=== PATIENT | female | born 1970 | race Caucasian/White ===

== ENCOUNTER 2016-08-29 18:46 | Emergency (ER) | payer MEDICARE, MEDICAID ==
[~2016-08-29] VITALS: Ht 152.4 cm; Wt 102.1 kg
[~2016-08-29 18:46] MED LIST: CARB200T PO; CARI350T PO; CLON1TAB PO; GABA300C PO; MULT-24 PO
[2016-08-29] MEDS ORDERED: FLUO20CA36 PO (19:00)
[2016-08-29] MEDS ORDERED: IV NORMAL SALINE 1000 ML BAG IV ONE ×2 (20:00→22:30)
[2016-08-29] MEDS ORDERED: HYDROMORPHONE 1 MG/1 ML DISP.SYRIN IV ONE ×2 (20:00→22:30)
[2016-08-29] MEDS ORDERED: ONDANSETRON 4 MG/2 ML VIAL IV ONE (20:00)
[2016-08-29] MEDS ORDERED: DIATR MEGLU/DIATRIZOATE SODIUM 120 ML BOTTLE PO ONE (20:00)
[2016-08-29] MEDS ORDERED: HYDROMORPHONE 1 MG/1 ML DISP.SYRIN ONE ×2 (20:19→22:37)
[2016-08-29] MEDS ORDERED: ONDANSETRON 4 MG/2 ML VIAL ONE (20:19)
[2016-08-29] MEDS ORDERED: DIATR MEGLU/DIATRIZOATE SODIUM 120 ML BOTTLE ONE (20:19)
[2016-08-29 20:22] LABS: *BILIRUBIN,URIN NEGATIVE (NEGATIVE); *BLOOD, URINE Trace-intact (NEGATIVE); *CLARITY,URINE CLEAR (CLEAR); *COLOR,URINE YELLOW (YELLOW); *KETONES,URINE NEGATIVE (NEGATIVE); *PROTEIN,URINE NEGATIVE (NEGATIVE); *UROBILINOGEN,URINE 0.2 E.U./dl (NORMAL); LEUKOCYTE ESTERASE ,URINE NEGATIVE (NEGATIVE); NITRITE, URINE NEGATIVE (NEGATIVE); PH,URINE 6.5 (5.0-8.0); UGLUCOSE NEGATIVE (NEGATIVE)
[2016-08-29 20:23] LABS: BASOPHILS % (AUTO) 0.4 % (0.0-2.0); EOSINOPHILS # (AUTO) 0.1 K/uL (0.0-0.7); EOSINOPHILS % (AUTO) 2.3 % (0.0-7.0); HEMATOCRIT 34.7 % (37.0-47.0); HEMOGLOBIN 11.3 g/dL (12.0-16.0); LYMPHOCYTES # (AUTO) 1.4 K/uL (0.8-4.8); MEAN CORPUSCULAR HEMOGLOBIN 26.2 uug (27.0-31.0); MEAN CORPUSCULAR HGB CONC 33 g/dL (32.0-37.0); MEAN CORPUSCULAR VOLUME 80.6 fL (81.0-99.0); MONOCYTES # (AUTO) 0.5 K/uL (0.1-1.30); MONOCYTES % (AUTO) 7.8 % (0.0-11.0); NEUTROPHILS # (AUTO) 3.8 K/uL (1.8-8.9); NEUTROPHILS % (AUTO) 65.5 % (38.5-71.5); PLATELET COUNT (AUTO) 261 K/uL (150-450); RED CELL DISTRIBUTION WIDTH 21.5 % (11.5-14.5); WHITE BLOOD COUNT (AUTO) 5.8 K/uL (4.0-11.2)
[2016-08-29 20:25] LABS: *URINE HCG, QUAL NEGATIVE (NEGATIVE)
[2016-08-29 20:31] LABS: MUCUS,URINE MODERATE /LPF (0-FEW); SQUAMOUS EPITHELIAL CELL,UR MODERATE /HPF (NONE SEEN); WBC,URINE 0-3 /HPF (0-3)
[2016-08-29 20:39] LABS: CALCIUM 8.9 mg/dL (8.5-10.1); CARBON DIOXIDE 31 mmol/L (21-32); CHLORIDE 93 mmol/L (98-107); CREATININE 0.9 mg/dL (0.6-1.3); GFR 67 mL/min (>60); GLUCOSE 85 mg/dL (74-106); POTASSIUM 3.4 mmol/L (3.5-5.1); SODIUM SERUM 130 mmol/L (136-145); UREA NITROGEN, BLOOD 15 mg/dL (7-18)
[2016-08-29 20:46] LABS: AMMONIA < 10 umol/L (11-32)
[2016-08-29 20:47] LABS: ACANTHOCYTES FEW; ANISOCYTOSIS 2+
[2016-08-29 20:49] LABS: ALANINE AMINOTRANSFERASE 13 U/L (14-59); ALBUMIN 3.4 g/dL (3.4-5.0); ALKALINE PHOSPHATASE 77 U/L (50-136); ASPARTATE AMINOTRANSFERASE 16 U/L (15-37); BILIRUBIN,DIRECT 0.1 mg/dL (0.0-0.2); BILIRUBIN,TOTAL 0.3 mg/dL (0.2-1.0); LIPASE 59 U/L (73-393); TOTAL PROTEIN, SERUM 7.2 g/dL (6.4-8.2)
--- NOTE | 2016-08-29 23:44 | NUR ---
Patient discharged to home in stable conditon. Written and verbal after care instructions given. Patient verbalizes understanding of instructions.
== END 2016-08-29 23:47 | disposition home or self-care (01) ==
LOC: ER 18:46
DX: R10.9 Unspecified abdominal pain (principal); M54.30 Sciatica, unspecified side; R00.2 Palpitations; R42 Dizziness and giddiness; R51 Headache; E87.1 Hypo-osmolality and hyponatremia; E66.9 Obesity, unspecified; J44.9 Chronic obstructive pulmonary disease, unspecified; K21.9 Gastro-esophageal reflux disease without esophagitis; F31.9 Bipolar disorder, unspecified; J45.909 Unspecified asthma, uncomplicated; F17.200 Nicotine dependence, unspecified, uncomplicated; Z90.49 Acquired absence of other specified parts of digestive tract; Z91.018 Allergy to other foods
CPT/HCPCS: 36415; 70450; 71010; 74176; 80048; 80076; 81001; 82140; 83690; 84484; 84703; 85025; 85730; 87086; 87210; 93005; 96361; 96374; 96375; 96376; 99285; A4663; J1170 ×2; J2405; J7030 ×2; Q9963; 70030-TC

== ENCOUNTER 2016-09-24 15:12 | Emergency (ER) | payer MEDICARE, MEDICAID ==
[~2016-09-24] VITALS: Ht 167.6 cm; Wt 114.3 kg
[~2016-09-24 15:12] MED LIST changes: +FLUO20CA36 PO
[2016-09-24] MEDS ORDERED: ASPI81TA31 PO (15:41)
[2016-09-24] MEDS ORDERED: CYAN10009 PO (15:41)
[2016-09-24] MEDS ORDERED: HYDR25TA4 PO (15:41)
[2016-09-24] MEDS ORDERED: FERR325C PO (15:41)
[2016-09-24] MEDS ORDERED: PROMETHAZINE HCL 25 MG/1 ML VIAL IM ONE (16:15)
[2016-09-24] MEDS ORDERED: HYDROMORPHONE 1 MG/1 ML DISP.SYRIN IM ONE (16:15)
[2016-09-24] MEDS ORDERED: HYDROMORPHONE 2 MG/1 ML DISP.SYRIN ONE (16:32)
[2016-09-24] MEDS ORDERED: PROMETHAZINE HCL 25 MG/1 ML VIAL ONE (16:32)
[2016-09-24 16:36] LABS: BASOPHILS % (AUTO) 0.7 % (0.0-2.0); EOSINOPHILS # (AUTO) 0.2 K/uL (0.0-0.7); EOSINOPHILS % (AUTO) 2.8 % (0.0-7.0); HEMATOCRIT 34.3 % (31.2-41.9); HEMOGLOBIN 11.7 g/dL (10.9-14.3); LYMPHOCYTES # (AUTO) 1.2 K/uL (20.0-40.0); LYMPHOCYTES % (AUTO) 22.1 % (20.5-51.5); MEAN CORPUSCULAR HEMOGLOBIN 27.9 uug (24.7-32.8); MEAN CORPUSCULAR HGB CONC 34 g/dL (32.3-35.6); MEAN CORPUSCULAR VOLUME 82.1 fL (75.5-95.3); MONOCYTES # (AUTO) 0.5 K/uL (2.0-10.0); MONOCYTES % (AUTO) 9.6 % (0.0-11.0); NEUTROPHILS # (AUTO) 3.5 K/uL (1.8-8.9); NEUTROPHILS % (AUTO) 64.8 % (38.5-71.5); PLATELET COUNT (AUTO) 243 K/uL (179-408); RED BLOOD CELL COUNT(AUTO) 4.18 MIL/uL (3.63-4.92); RED CELL DISTRIBUTION WIDTH 19.6 % (12.3-17.7); WHITE BLOOD COUNT (AUTO) 5.4 K/uL (3.8-11.8)
[2016-09-24 16:37] LABS: CALCIUM 8.5 mg/dL (8.5-10.1); CREATININE 0.8 mg/dL (0.6-1.3)
--- NOTE | 2016-09-24 16:58 | NUR ---
Patient discharged to home in stable conditon. Written and verbal after care instructions given. Patient verbalizes understanding of instructions.TAXI VOUCHER PROVIDED PER PT REQUEST. PT SAYS FEELS BETTER, PAIN DOWN TO TOLERABLE 3/10 LEVEL, DENEIS ANY NAUSEA
[2016-09-24 17:08] VITALS: BP 117/83
[2016-09-24] MEDS ORDERED: MAG HYDROX/AL HYDROX/SIMETH 30 ML LIQUID UDC PO ONE (17:30)
[2016-09-24] MEDS ORDERED: MAG HYDROX/AL HYDROX/SIMETH 30 ML LIQUID UDC ONE (17:32)
== END 2016-09-24 17:35 | disposition home or self-care (01) ==
LOC: ER 15:12
DX: N92.0 Excessive and frequent menstruation with regular cycle (principal); J45.909 Unspecified asthma, uncomplicated; J44.9 Chronic obstructive pulmonary disease, unspecified; K21.9 Gastro-esophageal reflux disease without esophagitis; F31.9 Bipolar disorder, unspecified; F17.200 Nicotine dependence, unspecified, uncomplicated; Z91.018 Allergy to other foods; Z79.82 Long term (current) use of aspirin
CPT/HCPCS: 36415; 85025; A4663; J1170; J2550

== ENCOUNTER 2016-10-01 16:41 | Emergency (ER) | payer MEDICARE, MEDICAID ==
[~2016-10-01] VITALS: Ht 170.2 cm; Wt 83.9 kg
[~2016-10-01 16:41] MED LIST changes: +ASPI81TA31 PO; +CYAN10009 PO; +FERR325C PO; +HYDR25TA4 PO
[2016-10-01] MEDS ORDERED: ONDANSETRON ODT 4 MG TAB.RAPDIS SL ONE (17:30)
[2016-10-01] MEDS ORDERED: HYDROMORPHONE 1 MG/1 ML DISP.SYRIN IM ONE (17:30)
[2016-10-01] MEDS ORDERED: HYDROMORPHONE 1 MG/1 ML DISP.SYRIN ONE (17:42)
[2016-10-01] MEDS ORDERED: ONDANSETRON 4 MG/2 ML VIAL ONE (17:43)
[2016-10-01 17:47] VITALS: BP 149/93
--- NOTE | 2016-10-01 17:48 | NUR ---
Patient discharged to home in stable conditon. Written and verbal after care instructions given. Patient verbalizes understanding of instructions.
== END 2016-10-01 17:50 | disposition home or self-care (01) ==
LOC: ER 16:49
DX: R10.30 Lower abdominal pain, unspecified (principal); R21 Rash and other nonspecific skin eruption; J45.909 Unspecified asthma, uncomplicated; J44.9 Chronic obstructive pulmonary disease, unspecified; K21.9 Gastro-esophageal reflux disease without esophagitis; F31.9 Bipolar disorder, unspecified; F17.200 Nicotine dependence, unspecified, uncomplicated; Z91.018 Allergy to other foods; Z79.82 Long term (current) use of aspirin
CPT/HCPCS: 96372 ×2; 99284; A4663; J1170; J2405

== ENCOUNTER 2016-10-10 19:37 | Emergency (ER) | payer MEDICARE, MEDICAID ==
[~2016-10-10] VITALS: Ht 170.2 cm; Wt 115.7 kg
--- NOTE | 2016-10-10 19:55 | NUR ---
Pt. BIB [facility], reports pt had c/o SOB but SPO2 was 100% and pt did not get dyspnic while descending stairs or on walk to the RA. Pt c/o LRQ sharp ABD pain, 9/10, for 2 weeks since having a DNC, also c/o swelling and lactating breasts, Pt also c/o generalized weakness & lethergy for over 1 month. No other complaints, no distress noted.
[2016-10-10] MEDS ORDERED: HYDROCODONE/APAP 10-325 MG TABLET PO ONE (20:00)
[2016-10-10] MEDS ORDERED: ONDANSETRON IV *ER 4 MG/2 ML VIAL IV ONE (20:00)
[2016-10-10 20:01] LABS: *BILIRUBIN,URIN NEGATIVE (NEGATIVE); *BLOOD, URINE 2+ (NEGATIVE); *COLOR,URINE YELLOW (YELLOW); *KETONES,URINE NEGATIVE (NEGATIVE); *PROTEIN,URINE NEGATIVE (NEGATIVE); *UROBILINOGEN,URINE 0.2 E.U./dl (NORMAL); LEUKOCYTE ESTERASE ,URINE NEGATIVE (NEGATIVE); NITRITE, URINE NEGATIVE (NEGATIVE); PH,URINE 5.5 (5.0-8.0); UGLUCOSE NEGATIVE (NEGATIVE)
[2016-10-10 20:02] LABS: *URINE HCG, QUAL NEGATIVE (NEGATIVE)
--- NOTE | 2016-10-10 20:11 | NUR ---
PATIENT REFUSED TO HAVE HEP LOCK PLACED. DR DUNCAN AWARE. RECIEVED ORDERS AN DCARRIED OUT
[2016-10-10 20:13] LABS: *CLARITY,URINE SLIGHTLY HAZY (CLEAR)
[2016-10-10 20:14] LABS: MUCUS,URINE FEW /LPF (0-FEW); SQUAMOUS EPITHELIAL CELL,UR MODERATE /HPF (NONE SEEN); WBC,URINE 0-3 /HPF (0-3)
[2016-10-10 20:15] LABS: BASOPHILS # (AUTO) 0.1 K/uL (0.0-8.0); BASOPHILS % (AUTO) 0.9 % (0.0-2.0); EOSINOPHILS # (AUTO) 0.2 K/uL (0.0-0.7); EOSINOPHILS % (AUTO) 3.1 % (0.0-7.0); HEMATOCRIT 36.7 % (37-47); LYMPHOCYTES # (AUTO) 1.1 K/UL (0.8-4.8); LYMPHOCYTES % (AUTO) 17.5 % (20.5-51.5); MEAN CORPUSCULAR HEMOGLOBIN 27.9 UUG (27.0-31.0); MEAN CORPUSCULAR HGB CONC 33 g/dL (32.0-37.0); MONOCYTES # (AUTO) 0.6 K/UL (0.1-1.30); MONOCYTES % (AUTO) 9.1 % (0.0-11.0); NEUTROPHILS # (AUTO) 4.3 K/UL (1.8-8.9); NEUTROPHILS % (AUTO) 69.4 % (38.5-71.5); PLATELET COUNT (AUTO) 236 K/UL (150-450); RED BLOOD CELL COUNT(AUTO) 4.31 MIL/UL (4.2-5.4); RED CELL DISTRIBUTION WIDTH 19.5 % (11.5-14.5); WHITE BLOOD COUNT (AUTO) 6.3 K/UL (4.0-11.2)
[2016-10-10] MEDS ORDERED: ONDANSETRON ODT 4 MG TAB.RAPDIS SL ONE (20:15)
[2016-10-10] MEDS ORDERED: ONDANSETRON ODT 4 MG TAB.RAPDIS ONE (20:18)
[2016-10-10] MEDS ORDERED: HYDROCODONE/APAP 10-325 MG TABLET ONE (20:18)
[2016-10-10 20:26] LABS: CALCIUM 8.9 mg/dL (8.5-10.1); CREATININE 0.9 mg/dL (0.6-1.3); POTASSIUM 3.4 mmol/L (3.5-5.1)
[2016-10-10 20:43] LABS: ANISOCYTOSIS 2+
[2016-10-10 20:44] LABS: ALBUMIN 3.3 g/dL (3.4-5.0); BILIRUBIN,DIRECT 0.1 mg/dL (0.0-0.2); BILIRUBIN,TOTAL 0.2 mg/dL (0.2-1.0); TOTAL PROTEIN, SERUM 7.2 g/dL (6.4-8.2)
[2016-10-10] MEDS ORDERED: POTASSIUM CHLORIDE 20 MEQ TAB.PRT.SR PO ONE (21:00)
[2016-10-10] MEDS ORDERED: POTASSIUM CHLORIDE 20 MEQ TAB.PRT.SR ONE (21:12)
--- NOTE | 2016-10-10 21:14 | NUR ---
Gave pt. RX and d/c instructions, verbalized understanding. Pt called for taxi.
[2016-10-10 21:16] VITALS: BP 129/83
== END 2016-10-10 21:18 | disposition home or self-care (01) ==
LOC: ER 19:39
DX: G89.18 Other acute postprocedural pain (principal); E87.6 Hypokalemia; J45.909 Unspecified asthma, uncomplicated; J44.9 Chronic obstructive pulmonary disease, unspecified; K21.9 Gastro-esophageal reflux disease without esophagitis; E66.9 Obesity, unspecified; G89.29 Other chronic pain; F31.9 Bipolar disorder, unspecified; F17.200 Nicotine dependence, unspecified, uncomplicated; Z91.018 Allergy to other foods; Z79.82 Long term (current) use of aspirin
CPT/HCPCS: 36415; 71010; 83690; 84703; 85025; A4663; Q0162

== ENCOUNTER 2016-10-16 01:45 | Emergency (ER) | payer MEDICARE, MEDICAID ==
[~2016-10-16] VITALS: Ht 157.5 cm; Wt 95.3 kg
--- NOTE | 2016-10-16 01:49 | NUR ---
PATIENT WALKED INTO ER C/O ANXIETY. PATIENT STATES RAN OUT OF KLONOPIN. PT IS ALERT, ORIENTED X 4, NO RESP DISTRESS NOTED OR REPORTED UPON ASSESSMENT... MD AT BEDSIDE...
--- NOTE | 2016-10-16 02:15 | NUR ---
please view downtime forms for medication orders...
[2016-10-16] MEDS ORDERED: CLONAZEPAM 1 MG TABLET ONE (02:25)
--- NOTE | 2016-10-16 02:35 | NUR ---
Patient discharged to home in stable conditon. Written and verbal after care instructions given. Patient verbalizes understanding of instructions. pt walked out of ER unassisted with belongings at side, pt called for taxi...
[2016-10-16 04:42] VITALS: BP 131/79
== END 2016-10-16 04:43 | disposition home or self-care (01) ==
LOC: ER 01:48
DX: Z76.0 Encounter for issue of repeat prescription (principal); J45.909 Unspecified asthma, uncomplicated; K21.9 Gastro-esophageal reflux disease without esophagitis; F31.9 Bipolar disorder, unspecified; E66.9 Obesity, unspecified; F17.200 Nicotine dependence, unspecified, uncomplicated; Z91.018 Allergy to other foods; Z79.82 Long term (current) use of aspirin
CPT/HCPCS: A4663

== ENCOUNTER 2016-10-22 19:12 | Inpatient (IN) | payer MEDICARE, MEDICAID ==
[~2016-10-22] VITALS: Ht 167.6 cm; Wt 114.3 kg
[2016-10-22] MEDS ORDERED: ALBU8.5H2 IH (19:39)
--- NOTE | 2016-10-22 20:00 | NUR ---
Patient walked into ER c/o back pain with SOB x4 for days. Here todays for worsening symptoms
[2016-10-22] MEDS ORDERED: IPRATROPIUM BROMIDE 0.5 MG/2.5 ML NEBU NEB ONE (23:00)
[2016-10-22] MEDS ORDERED: ALBUTEROL SULFATE 2.5 MG/3 ML NEBU NEB ONE (23:00)
[2016-10-22] MEDS ORDERED: methylPREDNISolone SOD SUCC 125 MG/2 ML VIAL IV ONE (23:00)
[2016-10-22] MEDS ORDERED: methylPREDNISolone SOD SUCC 125 MG/2 ML VIAL ONE (23:06)
[2016-10-22] MEDS ORDERED: IPRATROPIUM BROMIDE 0.5 MG/2.5 ML NEBU ONE (23:10)
[2016-10-22] MEDS ORDERED: ALBUTEROL SULFATE 2.5 MG/ 0.5 ML NEBU ONE (23:10)
[2016-10-22 23:12] LABS: BASOPHILS % (AUTO) 0.7 % (0.0-2.0); EOSINOPHILS # (AUTO) 0.2 K/uL (0.0-0.7); EOSINOPHILS % (AUTO) 3.1 % (0.0-7.0); HEMATOCRIT 37.5 % (37-47); LYMPHOCYTES # (AUTO) 1.1 K/UL (0.8-4.8); LYMPHOCYTES % (AUTO) 16.3 % (20.5-51.5); MEAN CORPUSCULAR HEMOGLOBIN 27.7 UUG (27.0-31.0); MEAN CORPUSCULAR HGB CONC 32 g/dL (32.0-37.0); MEAN CORPUSCULAR VOLUME 86.9 FL (81.0-99.0); MONOCYTES # (AUTO) 0.5 K/UL (0.1-1.30); MONOCYTES % (AUTO) 7.8 % (0.0-11.0); NEUTROPHILS % (AUTO) 72.1 % (38.5-71.5); PLATELET COUNT (AUTO) 301 K/UL (150-450); RED BLOOD CELL COUNT(AUTO) 4.32 MIL/UL (4.2-5.4); WHITE BLOOD COUNT (AUTO) 6.8 K/UL (4.0-11.2)
[2016-10-22 23:17] LABS: CREATININE 0.9 mg/dL (0.6-1.3); POTASSIUM 3.4 mmol/L (3.5-5.1)
[2016-10-22 23:28] LABS: BILIRUBIN,DIRECT 0.1 mg/dL (0.0-0.2); BILIRUBIN,TOTAL 0.3 mg/dL (0.2-1.0); TOTAL PROTEIN, SERUM 7.8 g/dL (6.4-8.2)
[2016-10-23 00:45] LABS: *BILIRUBIN,URIN NEGATIVE (NEGATIVE); *BLOOD, URINE 2+ (NEGATIVE); *CLARITY,URINE CLEAR (CLEAR); *COLOR,URINE DARK YELLOW (YELLOW); *KETONES,URINE NEGATIVE (NEGATIVE); *PROTEIN,URINE NEGATIVE (NEGATIVE); *UROBILINOGEN,URINE 0.2 E.U./dl (NORMAL); LEUKOCYTE ESTERASE ,URINE NEGATIVE (NEGATIVE); NITRITE, URINE NEGATIVE (NEGATIVE); PH,URINE 5.5 (5.0-8.0); UGLUCOSE NEGATIVE (NEGATIVE)
[2016-10-23] MEDS ORDERED: ALBUTEROL SULFATE 2.5 MG/3 ML NEBU NEB ONE (00:45)
[2016-10-23] MEDS ORDERED: IPRATROPIUM BROMIDE 0.5 MG/2.5 ML NEBU NEB ONE (00:45)
[2016-10-23] MEDS ORDERED: HYDROCODONE/APAP 10-325 MG TABLET PO ONE (00:45)
[2016-10-23 00:48] LABS: BACTERIA,URINE FEW /HPF (NONE SEEN); SQUAMOUS EPITHELIAL CELL,UR MODERATE /HPF (NONE SEEN); WBC,URINE 0-3 /HPF (0-3)
[2016-10-23] MEDS ORDERED: HYDROCODONE/APAP 10-325 MG TABLET ONE (00:53)
--- NOTE | 2016-10-23 01:00 | NUR ---
Patient requesting to be admitted to hospital stating " I still don't feel good."
[2016-10-23] MEDS ORDERED: IPRATROPIUM BROMIDE 0.5 MG/2.5 ML NEBU ONE (01:01)
[2016-10-23] MEDS ORDERED: ALBUTEROL SULFATE 2.5 MG/ 0.5 ML NEBU ONE (01:01)
[2016-10-23] MEDS ORDERED: LORAZEPAM 2 MG/1 ML VIAL IV ONE (01:30)
[2016-10-23] MEDS ORDERED: LORAZEPAM 2 MG/1 ML VIAL ONE (01:58)
[2016-10-23] MEDS ORDERED: ALBUTEROL SULFATE 2.5 MG/3 ML NEBU NEB PRN (03:15)
[2016-10-23] MEDS ORDERED: Z GUARD REMEDY PASTE 57 GM TUBE TOP PRN (03:15)
[2016-10-23] MEDS ORDERED: HYDROCODONE/APAP 5-325MG TABLET PO PRN (03:15)
[2016-10-23] MEDS ORDERED: MAGNESIUM HYDROXIDE 30 ML LIQUID UDC PO PRN (03:15)
[2016-10-23] MEDS ORDERED: ONDANSETRON 4 MG/2 ML VIAL IV PRN (03:15)
[2016-10-23] MEDS ORDERED: IPRATROPIUM BROMIDE 0.5 MG/2.5 ML NEBU NEB PRN (03:15)
[2016-10-23 04:00] VITALS: BP 117/71
--- NOTE | 2016-10-23 04:38 | NUR ---
transfered to 2nd floor via [facility]
[2016-10-23] MEDS ORDERED: OXYCODONE/APAP 5-325 MG TABLET ONE (06:57)
[2016-10-23] MEDS: OXYCODONE/APAP 5-325 MG TABLET PO PRN ×2 (06:58→13:23)
[2016-10-23] MEDS ORDERED: PANTOPRAZOLE SODIUM 40 MG TABLET.DR PO SCH (08:15)
[2016-10-23] MEDS: ACETAMINOPHEN 325 MG TABLET PO PRN ×2 (08:51→15:36)
[2016-10-23] MEDS ORDERED: MULTIVITAMINS,THERAPEUTIC TABLET PO SCH (09:00)
[2016-10-23] MEDS ORDERED: FLUOXETINE HCL 20 MG CAPSULE PO SCH (09:00)
[2016-10-23] MEDS ORDERED: ASPIRIN 81 MG TAB.CHEW PO SCH (09:00)
[2016-10-23] MEDS ORDERED: CYANOCOBALAMIN 1,000 MCG TABLET PO SCH (09:00)
[2016-10-23] MEDS ORDERED: HYDROCHLOROTHIAZIDE 25 MG TABLET PO SCH (09:00)
[2016-10-23] MEDS: methylPREDNISolone SOD SUCC 125 MG/2 ML VIAL IV SCH ×2 (09:15→15:36)
[2016-10-23] MEDS ORDERED: CARBAMAZEPINE 200 MG TABLET PO SCH (09:33)
[2016-10-23] MEDS: GABAPENTIN 300 MG CAPSULE PO SCH ×3 (09:39→17:02)
[2016-10-23] MEDS: CARISOPRODOL 350 MG TABLET PO SCH ×2 (09:39→17:02)
[2016-10-23 12:10] VITALS: BP 121/66
--- NOTE | 2016-10-23 13:23 | NUR ---
C/O OF HEADACHE, LOW BACK PAIN AND SORE THROAT- MEDICATED WITH PERCOCET 1 TAB PO ORDERED PRN
--- NOTE | 2016-10-23 14:25 | NUR ---
STATES PAIN RELIEVED 09/10 - NEEDS ATTENDED
[2016-10-23] MEDS ORDERED: NICOTINE 14 MG/24HR PATCH TD SCH (14:30)
[2016-10-23 16:02] VITALS: BP 131/76
--- NOTE | 2016-10-23 16:40 | NUR ---
SEEN BY DR PEARCE- FOR DISCHARGE HOME
[2016-10-23] MEDS ORDERED: FLUT1DIS28 INH (16:43)
[2016-10-23] MEDS ORDERED: PRED20TA PO (16:43)
--- NOTE | 2016-10-23 17:30 | NUR ---
DISCHARGE INSTRUCTIONS GIVEN- VERBALIZED UNDERSTANDING, SALINE LOCK REMOVED, NO SWELLING/REDNESS NOTED ON SITE, MEDICATIONS INSTRUCTION WITH PRESCRIPTION GIVEN BY PHARMACIST- VERBALIZED UNDERSTANDING WELL
--- NOTE | 2016-10-23 17:45 | NUR ---
ESCORTED TO [facility] IN STABLE CONDITION UNDER FAMILY'S CARE, ALL BELONGINGS WITH HER
[2016-10-24] MEDS ORDERED: ACET-1467 PO (13:39)
== END 2016-10-23 17:45 | disposition home or self-care (01) | DRG 191 ==
LOC: ER 19:16 → MED 10-23 04:22
DX: J44.1 Chronic obstructive pulmonary disease with (acute) exacerbation (principal); Z68.41 Body mass index [BMI] 40.0-44.9, adult; E87.1 Hypo-osmolality and hyponatremia; F19.20 Other psychoactive substance dependence, uncomplicated; E66.9 Obesity, unspecified; G89.29 Other chronic pain; K21.9 Gastro-esophageal reflux disease without esophagitis; F17.200 Nicotine dependence, unspecified, uncomplicated; D25.9 Leiomyoma of uterus, unspecified; E66.01 Morbid (severe) obesity due to excess calories; E87.6 Hypokalemia; M54.30 Sciatica, unspecified side; Z79.899 Other long term (current) drug therapy; Z98.84 Bariatric surgery status
CPT/HCPCS: 36415; 70030-TC; 71010; 83605; 85025; 87040; A4663; J2060; J2930; J3590

== ENCOUNTER 2016-10-24 13:23 | Inpatient (IN) | payer MEDICARE, MEDICAID ==
[~2016-10-24] VITALS: Ht 167.6 cm; Wt 116.6 kg
[~2016-10-24 13:23] MED LIST changes: +ALBU8.5H2 IH; -FERR325C PO; +FLUT1DIS28 INH; +PRED20TA PO
[2016-10-24] MEDS ORDERED: ACET-1467 PO (13:39)
[2016-10-24] MEDS ORDERED: ALBUTEROL SULFATE 2.5 MG/3 ML NEBU NEB ONE (13:45)
[2016-10-24] MEDS ORDERED: IPRATROPIUM BROMIDE 0.5 MG/2.5 ML NEBU NEB ONE (13:45)
[2016-10-24] MEDS ORDERED: methylPREDNISolone SOD SUCC 125 MG/2 ML VIAL IV ONE (13:45)
[2016-10-24] MEDS ORDERED: HYDROMORPHONE 1 MG/1 ML DISP.SYRIN IV ONE (13:45)
[2016-10-24] MEDS ORDERED: IV NORMAL SALINE 1000 ML BAG IV ONE (13:45)
[2016-10-24 14:09] LABS: CREATININE 0.8 mg/dL (0.6-1.3); POTASSIUM 2.9 mmol/L (3.5-5.1)
[2016-10-24] MEDS ORDERED: IPRATROPIUM BROMIDE 0.5 MG/2.5 ML NEBU ONE (14:09)
[2016-10-24] MEDS ORDERED: ALBUTEROL SULFATE 2.5 MG/3 ML NEBU ONE (14:09)
[2016-10-24] MEDS ORDERED: HYDROMORPHONE 1 MG/1 ML DISP.SYRIN ONE ×2 (14:15→15:56)
[2016-10-24] MEDS ORDERED: ONDANSETRON IV *ER 4 MG/2 ML VIAL IV ONE (14:15)
[2016-10-24] MEDS ORDERED: methylPREDNISolone SOD SUCC 125 MG/2 ML VIAL ONE (14:15)
[2016-10-24 14:21] LABS: BILIRUBIN,DIRECT 0.1 mg/dL (0.0-0.2); BILIRUBIN,TOTAL 0.3 mg/dL (0.2-1.0); TOTAL PROTEIN, SERUM 7.2 g/dL (6.4-8.2)
[2016-10-24] MEDS ORDERED: ONDANSETRON 4 MG/2 ML VIAL ONE (14:22)
[2016-10-24 14:23] LABS: BASOPHILS % (AUTO) 0.4 % (0.0-2.0); EOSINOPHILS # (AUTO) 0.1 K/uL (0.0-0.7); EOSINOPHILS % (AUTO) 0.8 % (0.0-7.0); HEMATOCRIT 35.7 % (37-47); HEMOGLOBIN 11.8 G/DL (12.0-16.0); LYMPHOCYTES # (AUTO) 1.4 K/UL (0.8-4.8); LYMPHOCYTES % (AUTO) 18.3 % (20.5-51.5); MEAN CORPUSCULAR HEMOGLOBIN 28.8 UUG (27.0-31.0); MEAN CORPUSCULAR HGB CONC 33 g/dL (32.0-37.0); MEAN CORPUSCULAR VOLUME 87.1 FL (81.0-99.0); MONOCYTES # (AUTO) 0.5 K/UL (0.1-1.30); MONOCYTES % (AUTO) 6.4 % (0.0-11.0); NEUTROPHILS # (AUTO) 5.8 K/UL (1.8-8.9); NEUTROPHILS % (AUTO) 74.1 % (38.5-71.5); PLATELET COUNT (AUTO) 305 K/UL (150-450); WHITE BLOOD COUNT (AUTO) 7.8 K/UL (4.0-11.2)
[2016-10-24] MEDS ORDERED: POTASSIUM CHLORIDE 20 MEQ TAB.PRT.SR PO ONE (14:45)
[2016-10-24] MEDS ORDERED: POTASSIUM CHLORIDE 20 MEQ TAB.PRT.SR ONE (15:07)
[2016-10-24] MEDS ORDERED: HYDROMORPHONE 1 MG/1 ML DISP.SYRIN IV PRN (15:45)
[2016-10-24 15:59] VITALS: BP 152/110
--- NOTE | 2016-10-24 16:00 | NUR ---
NEW ADMISSION TO ROOM 221. PATIENT ALERT AWAKE IN NO ACUTE DISTRESS.
[2016-10-24] MEDS ORDERED: ALBUTEROL SULFATE 8 GM HFA.AER.AD IH SCH (16:30)
[2016-10-24] MEDS ORDERED: ALBUTEROL SULFATE 2.5 MG/3 ML NEBU NEB PRN (17:15)
--- NOTE | 2016-10-24 17:20 | NUR ---
ADMISSION HISTORY OBTAINED FROM PATIENT. DR MARQUEZ NOTIFIED OF NEW ADMISSION.
[2016-10-24] MEDS: CARISOPRODOL 350 MG TABLET PO SCH (18:02)
[2016-10-24] MEDS: GABAPENTIN 300 MG CAPSULE PO SCH (18:02)
[2016-10-24] MEDS: FLUTICASONE/SALMETEROL 250/50 INHALER INH SCH (18:03)
[2016-10-24] MEDS: NICOTINE 14 MG/24HR PATCH TD SCH (18:04)
[2016-10-24] MEDS: CARBAMAZEPINE 200 MG TABLET PO SCH (18:04)
--- NOTE | 2016-10-24 18:42 | NUR ---
END OF SHIFT NOTE: PATIENT IN NO ACUTE DISTRESS THROUGHOUT SHIFT. NO C/O PAIN AT THIS TIME. VSS. PATIENT ABLE TO MAKE NEEDS KNOWN. INDEPENDENT WITH ADLs. NEEDS MET BY STAFF.
[2016-10-24 19:00] VITALS: BP 103/63
--- NOTE | 2016-10-24 19:40 | NUR ---
nsg: pt received a/o x 4, in bed. no acute distress noted. denies discomfort. lungs sound clear to auscultate. tele, SR. ambulatory. cont to monitor.
[2016-10-24] MEDS: HYDROMORPHONE 1 MG/1 ML DISP.SYRIN SQ PRN (20:43)
--- NOTE | 2016-10-24 21:55 | NUR ---
nsg: pt still c/o low back, abd pain, medicated with dilaudid 0.5mg at 2042. paged Dr[address] Peterson. awaiting callback.
[2016-10-24] MEDS: methylPREDNISolone SOD SUCC 40 MG/ML VIAL IV SCH (22:10)
[2016-10-24 23:56] VITALS: BP 115/57
[2016-10-25] MEDS: HYDROMORPHONE 1 MG/1 ML DISP.SYRIN SQ PRN ×3 (00:50→13:40)
[2016-10-25] MEDS: CLONAZEPAM 1 MG TABLET PO PRN (00:55)
[2016-10-25 04:00] VITALS: BP 118/58
--- NOTE | 2016-10-25 05:56 | NUR ---
nsg: pt awake, HR drops to as low as 43 but non sustain, SB. v/s stable. cont to monitor.
[2016-10-25] MEDS: methylPREDNISolone SOD SUCC 40 MG/ML VIAL IV SCH ×3 (06:03→22:45)
[2016-10-25] MEDS: FLUOXETINE HCL 20 MG CAPSULE PO SCH (08:33)
[2016-10-25] MEDS: GABAPENTIN 300 MG CAPSULE PO SCH ×3 (08:33→17:31)
[2016-10-25] MEDS: NICOTINE 14 MG/24HR PATCH TD SCH (08:33)
[2016-10-25] MEDS: MULTIVITAMINS,THERAPEUTIC TABLET PO SCH (08:33)
[2016-10-25] MEDS: CARBAMAZEPINE 200 MG TABLET PO SCH ×3 (08:34→17:31)
[2016-10-25] MEDS: CARISOPRODOL 350 MG TABLET PO SCH ×2 (08:34→17:31)
[2016-10-25] MEDS: ASPIRIN 81 MG TAB.CHEW PO SCH (08:34)
[2016-10-25] MEDS: CYANOCOBALAMIN 1,000 MCG TABLET PO SCH (08:34)
[2016-10-25] MEDS: FLUTICASONE/SALMETEROL 250/50 INHALER INH SCH ×2 (08:35→17:31)
[2016-10-25] MEDS: HYDROCHLOROTHIAZIDE 25 MG TABLET PO SCH (08:35)
[2016-10-25 12:07] VITALS: BP 137/79
[2016-10-25 16:13] VITALS: BP 132/80
[2016-10-25] MEDS: ALBUTEROL SULFATE 2.5 MG/3 ML NEBU NEB PRN ×2 (19:20→22:29)
[2016-10-25] MEDS: HYDROMORPHONE 1 MG/1 ML DISP.SYRIN IV PRN (19:51)
[2016-10-25 20:09] VITALS: BP 129/74
--- NOTE | 2016-10-25 20:35 | NUR ---
Endorsed patient to HARISH Lilly. Patient is alert, oriented x 4, in no acute distress.
--- NOTE | 2016-10-25 21:00 | NUR ---
PATIENT IN BED, NO SOB NO CHEST PAIN, ON PAIN MANAGEMENT, CONT TO MONITOR.
[2016-10-25] MEDS: METRONIDAZOLE 500 MG/NS 100ML 500 MG in PREMIXED 1 EACH IV SCH (22:45)
[2016-10-26] MEDS: HYDROMORPHONE 1 MG/1 ML DISP.SYRIN IV PRN ×6 (00:02→22:46)
--- NOTE | 2016-10-26 00:31 | NUR ---
PATIENT COMPLAIN OF ITCHING AND WARM ON IV SITE LEFT FOREARM, IV PATENT NO S/S OF INFILTRATION, GIVEN COOLING PACK FOR COMFORT, AND WILL RE INSERT IV ON DIFFERENT SITE.
[2016-10-26] MEDS: ALBUTEROL SULFATE 2.5 MG/3 ML NEBU NEB PRN ×3 (04:16→21:08)
[2016-10-26 05:00] VITALS: BP 120/67
[2016-10-26] MEDS: METRONIDAZOLE 500 MG/NS 100ML 500 MG in PREMIXED 1 EACH IV SCH ×3 (05:00→22:30)
--- NOTE | 2016-10-26 05:48 | NUR ---
PATIENT AWAKE ALERT, ABLE TO MAKE NEEDS KNOW, NO SOB NO CHEST PAIN. ON PAIN MANAGEMENT, CONT ON HHN TX, AND SOLU MEDROL FOR SOB, NO DISTRESS
[2016-10-26] MEDS: CARISOPRODOL 350 MG TABLET PO SCH ×2 (08:03→16:51)
[2016-10-26] MEDS: GABAPENTIN 300 MG CAPSULE PO SCH ×3 (08:03→16:51)
[2016-10-26] MEDS: CARBAMAZEPINE 200 MG TABLET PO SCH ×3 (08:03→16:51)
[2016-10-26] MEDS: HYDROCHLOROTHIAZIDE 25 MG TABLET PO SCH (08:03)
[2016-10-26] MEDS: CYANOCOBALAMIN 1,000 MCG TABLET PO SCH (08:03)
[2016-10-26] MEDS: FLUOXETINE HCL 20 MG CAPSULE PO SCH (08:03)
[2016-10-26] MEDS: MULTIVITAMINS,THERAPEUTIC TABLET PO SCH (08:03)
[2016-10-26] MEDS: ASPIRIN 81 MG TAB.CHEW PO SCH (08:03)
[2016-10-26] MEDS: NICOTINE 14 MG/24HR PATCH TD SCH (08:04)
[2016-10-26] MEDS: FLUTICASONE/SALMETEROL 250/50 INHALER INH SCH ×2 (08:06→16:51)
[2016-10-26] MEDS: methylPREDNISolone SOD SUCC 40 MG/ML VIAL IV SCH ×2 (08:13→22:30)
[2016-10-26] MEDS: CLONAZEPAM 1 MG TABLET PO PRN (08:18)
[2016-10-26 10:12] LABS: CREATININE 0.9 mg/dL (0.6-1.3); MAGNESIUM 1.7 mg/dL (1.8-2.4); PHOSPHOROUS 3.6 mg/dL (2.5-4.9); POTASSIUM 3.4 mmol/L (3.5-5.1)
[2016-10-26 10:21] LABS: THYROID STIMULATING HORMONE 0.072 mIU/mL (0.358-3.740)
[2016-10-26 11:16] VITALS: BP 118/72
[2016-10-26 15:15] VITALS: BP 128/76
[2016-10-26 20:00] VITALS: BP 124/81
[2016-10-27] MEDS: HYDROMORPHONE 1 MG/1 ML DISP.SYRIN IV PRN ×5 (02:30→18:38)
[2016-10-27 04:00] VITALS: BP 125/71
--- NOTE | 2016-10-27 04:00 | NUR ---
Received patient, endorsed by HARISH Schmdit. Patient asleep, in no acute distress. Call light within reach, bed alarm on. Will continue plan of care.
[2016-10-27] MEDS: METRONIDAZOLE 500 MG/NS 100ML 500 MG in PREMIXED 1 EACH IV SCH (05:29)
[2016-10-27 06:42] LABS: BILIRUBIN,TOTAL 0.2 mg/dL (0.2-1.0); CREATININE 0.8 mg/dL (0.6-1.3); MAGNESIUM 1.8 mg/dL (1.8-2.4); POTASSIUM 4.1 mmol/L (3.5-5.1); TOTAL PROTEIN, SERUM 6.6 g/dL (6.4-8.2)
[2016-10-27 06:51] LABS: BASOPHILS % (AUTO) 0.2 % (0.0-2.0); EOSINOPHILS % (AUTO) 0.2 % (0.0-7.0); HEMATOCRIT 33.8 % (37-47); LYMPHOCYTES # (AUTO) 0.9 K/UL (0.8-4.8); LYMPHOCYTES % (AUTO) 10.1 % (20.5-51.5); MEAN CORPUSCULAR HEMOGLOBIN 28.1 UUG (27.0-31.0); MEAN CORPUSCULAR HGB CONC 32 g/dL (32.0-37.0); MEAN CORPUSCULAR VOLUME 86.6 FL (81.0-99.0); MONOCYTES # (AUTO) 0.4 K/UL (0.1-1.30); MONOCYTES % (AUTO) 3.9 % (0.0-11.0); NEUTROPHILS # (AUTO) 7.9 K/UL (1.8-8.9); NEUTROPHILS % (AUTO) 85.6 % (38.5-71.5); PLATELET COUNT (AUTO) 251 K/UL (150-450); WHITE BLOOD COUNT (AUTO) 9.2 K/UL (4.0-11.2)
--- NOTE | 2016-10-27 07:30 | NUR ---
RECEIVED PATIENT AWAKE ALERT AND ORIENTED REMAIN ON O2 AND STATED THAT SHE GETS EASILY EXERTED AND THAT SHE NEEDS THE O2 AND WANDERING IF SHE WILL REQUIRE O2 AT HOME.PATIENT REASSURED THAT THE DOCTOR WILL EVALUATE AND WILL ORDER OXYGEN FOR HER IF NEEDED AND SHE EXPRESSED UNDERSTANDING.
--- NOTE | 2016-10-27 09:00 | NUR ---
PATIENT IS HAVING VAGINAL BLEEDING STATED ITS ALREADY TWO DAYS AND STATED THAT ITS NOT HER MENSTRUATION STATED THAT DR PEARCE IS AWARE BUT I WENT AHEAD AND NOTIFIED HIM AND HE STATED THAT HE KNOWS AND THAT PATIENT SHOULD FOLLOW UP WITH HER TOWER ERECTOR AN OUT PATIENT PATIENT AWARE.SANITARY [place] AND DISPOSABLE UNDERWEAR PROVIDED.
[2016-10-27] MEDS: NICOTINE 14 MG/24HR PATCH TD SCH (09:07)
[2016-10-27] MEDS: FLUTICASONE/SALMETEROL 250/50 INHALER INH SCH ×2 (09:07→17:07)
[2016-10-27] MEDS: CARBAMAZEPINE 200 MG TABLET PO SCH ×3 (09:08→17:07)
[2016-10-27] MEDS: methylPREDNISolone SOD SUCC 40 MG/ML VIAL IV SCH (09:08)
[2016-10-27] MEDS: FLUOXETINE HCL 20 MG CAPSULE PO SCH (09:08)
[2016-10-27] MEDS: GABAPENTIN 300 MG CAPSULE PO SCH ×3 (09:08→17:07)
[2016-10-27] MEDS: CYANOCOBALAMIN 1,000 MCG TABLET PO SCH (09:09)
[2016-10-27] MEDS: CARISOPRODOL 350 MG TABLET PO SCH ×2 (09:09→17:07)
[2016-10-27] MEDS: MULTIVITAMINS,THERAPEUTIC TABLET PO SCH (09:09)
[2016-10-27] MEDS: ASPIRIN 81 MG TAB.CHEW PO SCH (09:09)
[2016-10-27] MEDS: HYDROCHLOROTHIAZIDE 25 MG TABLET PO SCH (09:10)
[2016-10-27 10:58] LABS: ABG BASE EXCESS 5.6 mmol/L; ABG HCO3 29.5 mmol/L; ABG PH 7.485 (7.350-7.450); ABG PO2 87.6 mmHg (75.0-100.0); ABG SITE RIGHT RADIAL; ABG TOTAL HEMOGLOBIN 12.1 G/dL (12.0-16.0); COHb 1.3 % (0.5-1.5); MetHb 0.1 % (0.0-1.5); O2Hb 95.7 % (94.0-97.0); VENT MODE Nasal Cannula
--- NOTE | 2016-10-27 12:00 | NUR ---
PATIENT SEEN AND EXAMINED BY DR PEARCE WITH ORDER TO DISCHARGE PATIENT HOME TODAY PATIENT AWARE AND STATED THAT HIS FRIEND WILL PICK HER UP THIS EVENING.PATIENT IS CURRENTLY ON ROOM AIR ABG WAS DONE ORDERED AND DR GAINES REVIEWED THE RESULTS.
[2016-10-27 12:07] VITALS: BP 121/74
[2016-10-27] MEDS ORDERED: METRONIDAZOLE 500 MG TABLET PO SCH (14:00)
[2016-10-27 16:08] VITALS: BP 123/82
[2016-10-27] MEDS: CLONAZEPAM 1 MG TABLET PO PRN (17:06)
--- NOTE | 2016-10-27 17:06 | NUR ---
PATIENT CALLED AND STATED THAT SHE WAS HAVING A PANIC ATTACK MEDICATED AT THIS TIME WITH KLONOPIN ORDERED AND WILL OBSERVE. SHE ALSO STATED THAT SHE WILL WAIT FOR HER COUSIN TO PICK HER UP ABOUT 8PM TODAY.
--- NOTE | 2016-10-27 17:12 | NUR ---
PATIENT STATES WILL BE UNABLE TO FILL PRESCRIPTION FOR PREDNISONE TILL LATER IN THE DAY ON 10/28, ORDRE RECEIVED TO ADMINISTER SOLUMEDROL BEFORE DISCHARGE TONIGHT
[2016-10-27] MEDS ORDERED: methylPREDNISolone SOD SUCC 40 MG/ML VIAL IV SCH (18:00)
--- NOTE | 2016-10-27 18:30 | NUR ---
DISCHARGE INSTRUCTIONS AND PRESCRIPTIONS GIVEN TO PATIENT AND SHE WAS INSTRUCTED TO CALL HER PRIMARY DOCTOR FOR A FOLLOW UP APPOINTMENT WITH HER CRAYON SAWYER AND SHE EXPRESSED UNDERSTANDING.PATIENT STATED THAT SHE IS WAITING FOR HER RIDE AT THIS TIME AND HE WILL BE HERE ABOUT 1944,ENDORSED.
--- NOTE | 2016-10-27 20:00 | NUR ---
PATIENT DISCHARGED TO SELF VIA TAXI VOUCHER. PATIENT ACCOMPANIED BY STAFF TO MAIN LOBBY UNTIL TAXI CAME. PATIENT LEFT WITH ALL BELONGINGS, PRESCRIPTION AND DISCHARGE INSTRUCTIONS. NO ACUTE DISTRESS NOTED. OFF UNIT AT 1944.
== END 2016-10-27 19:45 | disposition home or self-care (01) | DRG 191 ==
LOC: ER 13:23 → TELE 15:37 → MED 10-25 13:20
PROVIDERS: ADMIT Internal Medicine; ATTEND Internal Medicine
DX: J44.1 Chronic obstructive pulmonary disease with (acute) exacerbation (principal); F11.20 Opioid dependence, uncomplicated; F19.20 Other psychoactive substance dependence, uncomplicated; E44.0 Moderate protein-calorie malnutrition; E22.2 Syndrome of inappropriate secretion of antidiuretic hormone; Z68.41 Body mass index [BMI] 40.0-44.9, adult; J20.9 Acute bronchitis, unspecified; J44.0 Chronic obstructive pulmonary disease with (acute) lower respiratory infection; K21.9 Gastro-esophageal reflux disease without esophagitis; I10 Essential (primary) hypertension; Z87.11 Personal history of peptic ulcer disease; E87.6 Hypokalemia; D25.9 Leiomyoma of uterus, unspecified; E78.5 Hyperlipidemia, unspecified; E66.01 Morbid (severe) obesity due to excess calories; Z91.19 Patient's noncompliance with other medical treatment and regimen; Z79.899 Other long term (current) drug therapy; Z82.49 Family history of ischemic heart disease and other diseases of the circulatory system; Z98.84 Bariatric surgery status; F17.210 Nicotine dependence, cigarettes, uncomplicated; N76.0 Acute vaginitis
CPT/HCPCS: 36415; 36600; 70030-TC; 71010; 82533; 83735; 84100; 84300; 84443; 84550; 85025; 93005; 94640; J1170; J2405; J2920; J2930; J3490; J3590; J7030; J7040

== ENCOUNTER 2016-10-29 15:04 | Inpatient (IN) | payer MEDICARE, MEDICAID ==
[~2016-10-29] VITALS: Ht 172.7 cm; Wt 113.9 kg
[~2016-10-29 15:04] MED LIST changes: -PRED20TA PO
--- NOTE | 2016-10-29 15:43 | NUR ---
PT IS IN ROOM #1A. DR MONTILLA EVALUATED THE PT.
[2016-10-29] MEDS ORDERED: HYDROMORPHONE 1 MG/1 ML DISP.SYRIN IV ONE (16:45)
[2016-10-29] MEDS ORDERED: methylPREDNISolone SOD SUCC 125 MG/2 ML VIAL IV ONE (16:45)
[2016-10-29] MEDS ORDERED: HYDROMORPHONE 1 MG/1 ML DISP.SYRIN ONE ×2 (16:57→23:47)
[2016-10-29] MEDS ORDERED: methylPREDNISolone SOD SUCC 125 MG/2 ML VIAL ONE ×2 (16:57→23:44)
[2016-10-29 16:58] LABS: *BILIRUBIN,URIN NEGATIVE (NEGATIVE); *BLOOD, URINE 2+ (NEGATIVE); *CLARITY,URINE CLEAR (CLEAR); *COLOR,URINE YELLOW (YELLOW); *KETONES,URINE NEGATIVE (NEGATIVE); *PROTEIN,URINE NEGATIVE (NEGATIVE); *UROBILINOGEN,URINE 0.2 E.U./dl (NORMAL); LEUKOCYTE ESTERASE ,URINE NEGATIVE (NEGATIVE); NITRITE, URINE NEGATIVE (NEGATIVE); PH,URINE 8.5 (5.0-8.0); UGLUCOSE NEGATIVE (NEGATIVE)
[2016-10-29 17:00] LABS: BASOPHILS # (AUTO) 0.1 K/uL (0.0-8.0); BASOPHILS % (AUTO) 0.9 % (0.0-2.0); EOSINOPHILS # (AUTO) 0.1 K/uL (0.0-0.7); EOSINOPHILS % (AUTO) 0.4 % (0.0-7.0); HEMATOCRIT 38.9 % (37-47); HEMOGLOBIN 12.8 G/DL (12.0-16.0); LYMPHOCYTES # (AUTO) 1.1 K/UL (0.8-4.8); LYMPHOCYTES % (AUTO) 6.7 % (20.5-51.5); MEAN CORPUSCULAR HEMOGLOBIN 28.4 UUG (27.0-31.0); MEAN CORPUSCULAR HGB CONC 33 g/dL (32.0-37.0); MONOCYTES # (AUTO) 0.6 K/UL (0.1-1.30); MONOCYTES % (AUTO) 3.9 % (0.0-11.0); NEUTROPHILS # (AUTO) 13.9 K/UL (1.8-8.9); NEUTROPHILS % (AUTO) 88.1 % (38.5-71.5); PLATELET COUNT (AUTO) 327 K/UL (150-450); RED BLOOD CELL COUNT(AUTO) 4.53 MIL/UL (4.2-5.4); WHITE BLOOD COUNT (AUTO) 15.8 K/UL (4.0-11.2)
[2016-10-29 17:01] LABS: BACTERIA,URINE NONE SEEN /HPF (NONE SEEN); SQUAMOUS EPITHELIAL CELL,UR FEW /HPF (NONE SEEN); WBC,URINE 0-3 /HPF (0-3)
[2016-10-29 17:18] LABS: CREATININE 0.9 mg/dL (0.6-1.3)
[2016-10-29 17:24] LABS: BILIRUBIN,TOTAL 0.2 mg/dL (0.2-1.0); TOTAL PROTEIN, SERUM 7.2 g/dL (6.4-8.2)
[2016-10-29] MEDS ORDERED: ALBUTEROL SULFATE 2.5 MG/ 0.5 ML NEBU ONE (17:26)
[2016-10-29] MEDS ORDERED: IPRATROPIUM BROMIDE 0.5 MG/2.5 ML NEBU ONE (17:26)
--- NOTE | 2016-10-29 19:13 | NUR ---
Admitted for COPD exac.
[2016-10-29] MEDS ORDERED: KETOROLAC TROMETHAMINE 15 MG INJ IVP ONE (19:15)
[2016-10-29] MEDS ORDERED: MORPHINE SULFATE 4 MG/1 ML DISP.SYRIN IV ONE (19:45)
[2016-10-29] MEDS ORDERED: MORPHINE SULFATE 10 MG/1 ML DISP.SYRIN ONE (19:50)
[2016-10-29] MEDS ORDERED: ONDANSETRON IV *ER 4 MG/2 ML VIAL IV ONE (20:00)
[2016-10-29] MEDS ORDERED: ONDANSETRON 4 MG/2 ML VIAL ONE (20:08)
--- NOTE | 2016-10-29 20:43 | NUR ---
Pt. admitted to TELE , under care of Dr. Severino MONTENEGRO, Belongs List completed, pt is alert, oriented x 4, no resp distress noted or reported upon transfer assessment... pt transferred via gurney...
[2016-10-29] MEDS ORDERED: LORAZEPAM 0.5 MG TABLET PO ONE (20:45)
[2016-10-29] MEDS ORDERED: LORAZEPAM 1 MG TABLET ONE (20:49)
[2016-10-29 21:00] VITALS: BP 113/72
--- NOTE | 2016-10-29 21:00 | NUR ---
PATIENT ADMITTED TELE UNIT UNDER THE CARE OF EDER PEARCE, NOTIFY RADHAMES LOWRY REGARDING ADMISSION AND LEFT MESSAGE TO RK LOWRY FOR ORDERS.
[2016-10-29] MEDS ORDERED: FLUTICASONE/SALMETEROL 250/50 INHALER INH SCH (22:45)
[2016-10-29] MEDS ORDERED: LEVOFLOXACIN 750MG/D5W 750 MG in PREMIXED 1 EACH IV SCH (22:45)
[2016-10-29] MEDS: ALBUTEROL SULFATE 2.5 MG/ 0.5 ML NEBU NEB SCH (23:00)
[2016-10-29] MEDS ORDERED: ACETAMINOPHEN 325 MG TABLET PO PRN (23:00)
[2016-10-29] MEDS: IPRATROPIUM BROMIDE 0.5 MG/2.5 ML NEBU NEB SCH (23:00)
[2016-10-29] MEDS ORDERED: MAGNESIUM HYDROXIDE 30 ML LIQUID UDC PO PRN (23:00)
[2016-10-29] MEDS ORDERED: ONDANSETRON 4 MG/2 ML VIAL IV PRN (23:00)
[2016-10-29] MEDS ORDERED: ZOLPIDEM 5 MG TABLET PO PRN (23:00)
[2016-10-29] MEDS ORDERED: ENOXAPARIN SODIUM 40 MG/0.4 ML DISP.SYRIN SQ SCH (23:15)
[2016-10-29] MEDS ORDERED: NICOTINE 21 MG/24HR PATCH TD ONE (23:43)
[2016-10-29] MEDS ORDERED: LEVOFLOXACIN 750MG/D5W 150 ML IV ONE (23:46)
[2016-10-29] MEDS: methylPREDNISolone SOD SUCC 125 MG/2 ML VIAL IV SCH (23:47)
[2016-10-29] MEDS: GABAPENTIN 300 MG CAPSULE PO SCH (23:47)
[2016-10-29] MEDS: NICOTINE 21 MG/24HR PATCH TD SCH (23:48)
[2016-10-29] MEDS: HYDROMORPHONE 1 MG/1 ML DISP.SYRIN IV PRN (23:48)
[2016-10-29] MEDS ORDERED: GABAPENTIN 300 MG CAPSULE ONE (23:48)
[2016-10-30] VITALS: BP 121/73
[2016-10-30] MEDS ORDERED: CLONAZEPAM 1 MG TABLET ONE (00:38)
[2016-10-30] MEDS: CLONAZEPAM 1 MG TABLET PO PRN ×3 (01:04→20:19)
[2016-10-30] MEDS: IV NS 1000 ML 1,000 ML IV PRN ×2 (01:45→15:23)
[2016-10-30 04:00] VITALS: BP 108/68
[2016-10-30] MEDS: HYDROMORPHONE 1 MG/1 ML DISP.SYRIN IV PRN ×3 (04:13→09:09)
[2016-10-30] MEDS ORDERED: HYDROMORPHONE 1 MG/1 ML DISP.SYRIN ONE (04:22)
--- NOTE | 2016-10-30 05:18 | NUR ---
PATIENT SLEEP ON AND OFF ALL NIGHT, ON PAIN MANAGEMENT, SINUS RYTHM, NO SOB NO CHEST PAIN. NO S/S OF DISTRESS.
[2016-10-30] MEDS ORDERED: methylPREDNISolone SOD SUCC 125 MG/2 ML VIAL ONE (06:33)
[2016-10-30] MEDS: methylPREDNISolone SOD SUCC 125 MG/2 ML VIAL IV SCH ×3 (06:34→21:29)
[2016-10-30 07:00] LABS: CREATININE 0.8 mg/dL (0.6-1.3); MAGNESIUM 1.9 mg/dL (1.8-2.4); PHOSPHOROUS 4.1 mg/dL (2.5-4.9); POTASSIUM 5.2 mmol/L (3.5-5.1)
[2016-10-30] MEDS: IPRATROPIUM BROMIDE 0.5 MG/2.5 ML NEBU NEB SCH ×4 (07:25→19:32)
[2016-10-30] MEDS: ALBUTEROL SULFATE 2.5 MG/ 0.5 ML NEBU NEB SCH ×4 (07:25→19:32)
--- NOTE | 2016-10-30 07:25 | NUR ---
NO TX GIVEN AT THIS TIME. NO MEDS AVAILABLE YET. RN AWARE.
--- NOTE | 2016-10-30 07:31 | NUR ---
PT RECEIVED IN BED AWAKE.PT IS AXOX4.NO C/O PAIN NOTED.V/S ARE STABLE.
[2016-10-30 07:32] LABS: EOSINOPHILS # (AUTO) 0.1 K/uL (0.0-0.7); EOSINOPHILS % (AUTO) 0.7 % (0.0-7.0); HEMATOCRIT 35.1 % (37-47); LYMPHOCYTES # (AUTO) 0.8 K/UL (0.8-4.8); LYMPHOCYTES % (AUTO) 5.8 % (20.5-51.5); MEAN CORPUSCULAR HEMOGLOBIN 30.8 UUG (27.0-31.0); MEAN CORPUSCULAR HGB CONC 34 g/dL (32.0-37.0); MONOCYTES # (AUTO) 0.4 K/UL (0.1-1.30); MONOCYTES % (AUTO) 2.7 % (0.0-11.0); NEUTROPHILS # (AUTO) 11.7 K/UL (1.8-8.9); NEUTROPHILS % (AUTO) 90.8 % (38.5-71.5); PLATELET COUNT (AUTO) 297 K/UL (150-450)
[2016-10-30] MEDS: MULTIVITAMINS,THERAPEUTIC TABLET PO SCH (08:06)
[2016-10-30] MEDS: PANTOPRAZOLE SODIUM 40 MG TABLET.DR PO SCH (08:06)
[2016-10-30] MEDS: NICOTINE 21 MG/24HR PATCH TD SCH (08:06)
[2016-10-30] MEDS: GABAPENTIN 300 MG CAPSULE PO SCH ×3 (08:06→16:03)
[2016-10-30] MEDS: ASPIRIN 81 MG TAB.CHEW PO SCH (08:06)
[2016-10-30] MEDS: HYDROCHLOROTHIAZIDE 25 MG TABLET PO SCH (08:07)
[2016-10-30] MEDS: CYANOCOBALAMIN 1,000 MCG TABLET PO SCH (08:07)
[2016-10-30] MEDS: FLUOXETINE HCL 20 MG CAPSULE PO SCH (08:07)
[2016-10-30] MEDS: CARBAMAZEPINE 200 MG TABLET PO SCH ×3 (08:12→21:30)
[2016-10-30] MEDS ORDERED: CARISOPRODOL 350 MG TABLET PO SCH (09:00)
[2016-10-30] MEDS: FLUTICASONE/SALMETEROL 250/50 INHALER INH SCH ×2 (09:00→20:20)
[2016-10-30 09:09] VITALS: BP 120/55
[2016-10-30 11:00] VITALS: BP 124/69
[2016-10-30] MEDS: MORPHINE SULFATE 4 MG/1 ML DISP.SYRIN IV PRN ×2 (13:04→21:41)
[2016-10-30 15:00] VITALS: BP 121/71
[2016-10-30 19:00] VITALS: BP 125/61
--- NOTE | 2016-10-30 19:00 | NUR ---
PATIENT AWAKE, NO SOB NO CHEST PAIN , CONT ON PAIN MANAGEMENT, CONT ON HHN TX, NO S/S OF DISTRESS.
[2016-10-30] MEDS ORDERED: LEVOFLOXACIN 750MG/D5W 750 MG in PREMIXED 1 EACH IV SCH (23:00)
[2016-10-31] MEDS: MORPHINE SULFATE 4 MG/1 ML DISP.SYRIN IV PRN ×3 (01:18→10:41)
--- NOTE | 2016-10-31 01:29 | NUR ---
PATIENT AWAKE WATCHING TV, CONT ON PAIN MANAGEMENT, NO SOB NO CHEST PAIN NOTED, CONT ABX FOR ELEVATED TEMP. NO S/S OF DISTRESS.
[2016-10-31 05:00] VITALS: BP 118/60
[2016-10-31] MEDS: methylPREDNISolone SOD SUCC 125 MG/2 ML VIAL IV SCH (06:15)
[2016-10-31] MEDS: CARBAMAZEPINE 200 MG TABLET PO SCH (06:16)
[2016-10-31] MEDS: PANTOPRAZOLE SODIUM 40 MG TABLET.DR PO SCH (06:16)
--- NOTE | 2016-10-31 06:47 | NUR ---
PATIENT ALERT ABLE TO MAKE NEEDS KNOWN, ON PAIN MANAGEMENT, NO SOB NO CHEST PAIN NOTED, CONT TO MONITOR.
--- NOTE | 2016-10-31 07:00 | NUR ---
RECEIVED REPORT FROM CREATIVE SERVICES COORDINATOR, PATIENT IS SAFE, BED IN LOW POSITION, SIDE RAILS UP X2
[2016-10-31] MEDS: IPRATROPIUM BROMIDE 0.5 MG/2.5 ML NEBU NEB SCH ×2 (07:02→11:12)
[2016-10-31] MEDS: ALBUTEROL SULFATE 2.5 MG/ 0.5 ML NEBU NEB SCH ×2 (07:02→11:13)
--- NOTE | 2016-10-31 08:07 | NUR ---
The nebulizer (ordered when she was discharged on her last hospitalization) was delivered to the patient's home yesterday by [employer] [facility] [ ; ] confirmed by Sal Abernathy. The patient also requested for home health to follow-up at home. She opted for [facility] to follow-up.
[2016-10-31] MEDS: ASPIRIN 81 MG TAB.CHEW PO SCH (08:27)
[2016-10-31] MEDS: CYANOCOBALAMIN 1,000 MCG TABLET PO SCH (08:27)
[2016-10-31] MEDS: MULTIVITAMINS,THERAPEUTIC TABLET PO SCH (08:27)
[2016-10-31] MEDS: GABAPENTIN 300 MG CAPSULE PO SCH (08:28)
[2016-10-31] MEDS: HYDROCHLOROTHIAZIDE 25 MG TABLET PO SCH (08:28)
[2016-10-31] MEDS: NICOTINE 21 MG/24HR PATCH TD SCH (08:29)
[2016-10-31] MEDS: FLUTICASONE/SALMETEROL 250/50 INHALER INH SCH (08:35)
[2016-10-31] MEDS: FLUOXETINE HCL 20 MG CAPSULE PO SCH (09:17)
[2016-10-31] MEDS ORDERED: HYDR-4037 PO (11:00)
[2016-10-31] MEDS ORDERED: ALBU2.5V13 NEB (11:00)
[2016-10-31] MEDS ORDERED: IPRA0.2S48 NEB (11:00)
--- NOTE | 2016-10-31 11:00 | NUR ---
DISCHARGE ORDERS RECEIVED FROM DOCTOR. PATIENT IS BEING DISCHARGED TO HOME
--- NOTE | 2016-10-31 11:40 | NUR ---
PATIENT INFORMED OF TOKEN FOR A BUS RIDE, PATIENT WAS UPSET, AND cASE MANAGEMENT CONTACTED. CASE MANAGEMENT STATED ALL AVAILABLE MEANS GIVEN TO PATIENT FOR TRANSPORTATION. PATIENT WILL BE PICKED UP BY [facility].
[2016-10-31 12:02] VITALS: BP 116/76
--- NOTE | 2016-10-31 12:25 | NUR ---
PATIENT DISCHARGED, AND WALKED DOWN TO LOBBY WITH NURSING STAFF
== END 2016-10-31 12:25 | disposition home or self-care (01) | DRG 191 ==
LOC: ER 15:04 → TELE 20:50 → MED 10-30 12:13
PROVIDERS: ADMIT Nurse Practitioner Acute Care; ATTEND Nurse Practitioner Acute Care
DX: J44.1 Chronic obstructive pulmonary disease with (acute) exacerbation (principal); E44.1 Mild protein-calorie malnutrition; E87.1 Hypo-osmolality and hyponatremia; F13.239 Sedative, hypnotic or anxiolytic dependence with withdrawal, unspecified; F11.20 Opioid dependence, uncomplicated; F32.9 Major depressive disorder, single episode, unspecified; D72.829 Elevated white blood cell count, unspecified; E66.01 Morbid (severe) obesity due to excess calories; E87.6 Hypokalemia; F41.9 Anxiety disorder, unspecified; Z68.38 Body mass index [BMI] 38.0-38.9, adult; T38.0X5A Adverse effect of glucocorticoids and synthetic analogues, initial encounter; Y92.009 Unspecified place in unspecified non-institutional (private) residence as the place of occurrence of the external cause; F17.200 Nicotine dependence, unspecified, uncomplicated; J98.01 Acute bronchospasm
CPT/HCPCS: 36415; 70030-TC; 71010; 83735; 84100; 84703; 85025; 93005; 94640; A4663; J1170; J1885; J1956; J2270; J2405; J2930; J3590; J7030

== ENCOUNTER 2016-11-11 09:31 | Emergency (ER) | payer MEDICARE, MEDICAID ==
[~2016-11-11] VITALS: Ht 167.6 cm; Wt 113.3 kg
[~2016-11-11 09:31] MED LIST changes: +ALBU2.5V13 NEB; -CARI350T PO; +HYDR-4037 PO; +IPRA0.2S48 NEB
--- NOTE | 2016-11-11 10:04 | NUR ---
PT WAS EVALUATED BY DR ALMAZAN. PT WAS MEDICATED ACCORDING ER MD ORDERS. PT TOLERATED TO MEDICATION WITHOUT COMPLICATIONS. PT WAS D/C TO HOME. D/C INSTRUCTIONS GIVEN TO THE PT.
[2016-11-11 10:08] VITALS: BP 129/73
[2016-11-11] MEDS ORDERED: HYDROCODONE/APAP 10-325 MG TABLET PO ONE (10:15)
[2016-11-11] MEDS ORDERED: HYDROCODONE/APAP 10-325 MG TABLET ONE (10:17)
== END 2016-11-11 10:10 | disposition home or self-care (01) ==
LOC: ER 09:31
DX: G89.29 Other chronic pain (principal); I10 Essential (primary) hypertension; J44.9 Chronic obstructive pulmonary disease, unspecified; K21.9 Gastro-esophageal reflux disease without esophagitis; F17.200 Nicotine dependence, unspecified, uncomplicated; E66.9 Obesity, unspecified; Z91.018 Allergy to other foods; Z79.82 Long term (current) use of aspirin
CPT/HCPCS: A4663

== ENCOUNTER 2016-11-14 15:13 | Emergency (ER) | payer MEDICARE, MEDICAID ==
[~2016-11-14] VITALS: Ht 167.6 cm; Wt 113.3 kg
--- NOTE | 2016-11-14 15:45 | NUR ---
PT RESTING IN BED W/ BOTH EYES CLOSED, NAD NOTED.
--- NOTE | 2016-11-14 16:44 | NUR ---
PT RESTING IN BED AWAITING TO BE SEEN BY .
--- NOTE | 2016-11-14 17:08 | NUR ---
DR ALMAZAN AT THE BEDSIDE FOR EVAL AND EXAM.
--- NOTE | 2016-11-14 17:18 | NUR ---
Patient discharged to home in stable conditon. Written and verbal after care instructions given. Patient verbalizes understanding of instructions.
[2016-11-14 17:19] VITALS: BP 120/96
== END 2016-11-14 17:20 | disposition home or self-care (01) ==
LOC: ER 15:13
DX: G89.29 Other chronic pain (principal); I10 Essential (primary) hypertension; J44.9 Chronic obstructive pulmonary disease, unspecified; K21.9 Gastro-esophageal reflux disease without esophagitis; F17.200 Nicotine dependence, unspecified, uncomplicated; F41.9 Anxiety disorder, unspecified; E66.9 Obesity, unspecified; Z91.018 Allergy to other foods; Z79.82 Long term (current) use of aspirin
CPT/HCPCS: 99283; A4663

== ENCOUNTER 2016-12-04 14:21 | Emergency (ER) | payer MEDICARE, MEDICAID ==
[~2016-12-04] VITALS: Ht 167.6 cm; Wt 113.4 kg
[~2016-12-04 14:21] MED LIST changes: -ALBU2.5V13 NEB; -ALBU8.5H2 IH; +ALBU8.5H8 IH; -HYDR-4037 PO; -IPRA0.2S48 NEB
--- NOTE | 2016-12-04 16:33 | NUR ---
PT WAS EVALUATED BY DR ALMAZAN. PT WAS D/C TO HOME. D/C INSTRUCTIONS GIVEN TO THE PT.
[2016-12-04 16:36] VITALS: BP 135/82
== END 2016-12-04 16:37 | disposition home or self-care (01) ==
LOC: ER 14:22
DX: F13.239 Sedative, hypnotic or anxiolytic dependence with withdrawal, unspecified (principal); F11.23 Opioid dependence with withdrawal; I10 Essential (primary) hypertension; K21.9 Gastro-esophageal reflux disease without esophagitis; J44.9 Chronic obstructive pulmonary disease, unspecified; F41.9 Anxiety disorder, unspecified; F17.200 Nicotine dependence, unspecified, uncomplicated; E66.9 Obesity, unspecified; Z91.018 Allergy to other foods; Z79.82 Long term (current) use of aspirin
CPT/HCPCS: A4663

== ENCOUNTER 2017-01-01 20:22 | Emergency (ER) | payer MEDICARE, MEDICAID ==
[~2017-01-01] VITALS: Ht 170.2 cm; Wt 108.9 kg
[2017-01-01] MEDS ORDERED: LOSA50TA21 PO (20:50)
[2017-01-01] MEDS ORDERED: HYDR-3980 PO (20:50)
[2017-01-01] MEDS ORDERED: METOCLOPRAMIDE HCL 10 MG/2 ML VIAL IM ONE (23:45)
[2017-01-01] MEDS ORDERED: METOCLOPRAMIDE HCL 10 MG/2 ML VIAL ONE (23:59)
--- NOTE | 2017-01-02 00:33 | NUR ---
Patient discharged to home in stable conditon. Written and verbal after care instructions given. Patient verbalizes understanding of instructions.
== END 2017-01-02 00:34 | disposition home or self-care (01) ==
LOC: ER 20:23
DX: G89.29 Other chronic pain (principal); R51 Headache; R11.2 Nausea with vomiting, unspecified; Z79.82 Long term (current) use of aspirin; F17.200 Nicotine dependence, unspecified, uncomplicated; Z98.84 Bariatric surgery status; F41.9 Anxiety disorder, unspecified; J44.9 Chronic obstructive pulmonary disease, unspecified; I10 Essential (primary) hypertension; G89.4 Chronic pain syndrome; E66.9 Obesity, unspecified
CPT/HCPCS: 96372; 99283; A4663; J2765

== ENCOUNTER 2017-02-10 18:04 | Emergency (ER) | payer MEDICARE, MEDICAID ==
[~2017-02-10] VITALS: Ht 167.6 cm; Wt 112.0 kg
[~2017-02-10 18:04] MED LIST changes: -CYAN10009 PO; +HYDR-3980 PO; +LOSA50TA21 PO; -MULT-24 PO
[2017-02-10] MEDS ORDERED: ESCITALOPRAM TAB 10MG PO (18:20)
[2017-02-10] MEDS ORDERED: CARBAMAZEPINE 200 MG PO (18:20)
[2017-02-10] MEDS ORDERED: HYDROCO/APAP TAB 10-325MG PO (18:20)
[2017-02-10] MEDS ORDERED: ALBUTEROL SULFATE 2.5 MG/3 ML NEBU NEB ONE (18:30)
[2017-02-10] MEDS ORDERED: IPRATROPIUM BROMIDE 0.5 MG/2.5 ML NEBU NEB ONE (18:30)
[2017-02-10] MEDS ORDERED: predniSONE 10 MG TABLET PO ONE (18:30)
[2017-02-10] MEDS ORDERED: predniSONE 10 MG TABLET ONE (18:32)
[2017-02-10] MEDS ORDERED: predniSONE 50 MG TABLET ONE (18:32)
[2017-02-10] MEDS ORDERED: ALBUTEROL SULFATE 2.5 MG/3 ML NEBU ONE (18:36)
[2017-02-10] MEDS ORDERED: IPRATROPIUM BROMIDE 0.5 MG/2.5 ML NEBU ONE (18:36)
--- NOTE | 2017-02-10 18:57 | NUR ---
Dr Akins is at bedside evaluating the patient.
[2017-02-10] MEDS ORDERED: HYDROCODONE/APAP 5-325MG TABLET PO ONE (19:30)
[2017-02-10] MEDS ORDERED: HYDROCODONE/APAP 5-325MG TABLET ONE (19:43)
--- NOTE | 2017-02-10 19:49 | NUR ---
Gave pt RX and d/c instructions, verbalized understanding.
[2017-02-10 19:52] VITALS: BP 115/53
== END 2017-02-10 19:53 | disposition home or self-care (01) ==
LOC: ER 18:11
DX: J45.909 Unspecified asthma, uncomplicated (principal); J20.9 Acute bronchitis, unspecified; I10 Essential (primary) hypertension; K21.9 Gastro-esophageal reflux disease without esophagitis; F17.200 Nicotine dependence, unspecified, uncomplicated; Z79.82 Long term (current) use of aspirin; Z90.49 Acquired absence of other specified parts of digestive tract
CPT/HCPCS: A4663; J3590; J7512

== ENCOUNTER 2017-02-20 18:40 | Emergency (ER) | payer MEDICARE, MEDICAID ==
[~2017-02-20] VITALS: Ht 167.6 cm; Wt 118.4 kg
[~2017-02-20 18:40] MED LIST changes: +CARBAMAZEPINE 200 MG PO; +ESCITALOPRAM TAB 10MG PO; +HYDROCO/APAP TAB 10-325MG PO
--- NOTE | 2017-02-20 19:05 | NUR ---
Report given to shift supervisor melting.
--- NOTE | 2017-02-20 19:09 | NUR ---
Pt to room, resting in position of comfort for self. Awaiting further eval.
--- NOTE | 2017-02-20 19:22 | NUR ---
Dr. Madrigal at bedside for MSE
[2017-02-20] MEDS ORDERED: HYDROMORPHONE 1 MG/1 ML DISP.SYRIN IV ONE ×2 (19:30→21:00)
[2017-02-20] MEDS ORDERED: IPRATROPIUM BROMIDE 0.5 MG/2.5 ML NEBU NEB ONE (19:30)
[2017-02-20] MEDS ORDERED: ALBUTEROL SULFATE 2.5 MG/3 ML NEBU NEB ONE (19:30)
[2017-02-20] MEDS ORDERED: ONDANSETRON 4 MG/2 ML VIAL IV ONE (19:30)
[2017-02-20] MEDS ORDERED: IV NORMAL SALINE 1000 ML BAG IV ONE (19:30)
[2017-02-20] MEDS ORDERED: methylPREDNISolone SOD SUCC 125 MG/2 ML VIAL IV ONE (19:30)
[2017-02-20 19:46] LABS: BASOPHILS % (AUTO) 0.7 % (0.0-2.0); EOSINOPHILS # (AUTO) 0.2 K/uL (0.0-0.7); HEMATOCRIT 34.3 % (37-47); HEMOGLOBIN 11.4 G/DL (12.0-16.0); LYMPHOCYTES # (AUTO) 1.5 K/UL (0.8-4.8); LYMPHOCYTES % (AUTO) 25.9 % (20.5-51.5); MEAN CORPUSCULAR HEMOGLOBIN 28.6 UUG (27.0-31.0); MEAN CORPUSCULAR HGB CONC 33 g/dL (32.0-37.0); MONOCYTES # (AUTO) 0.5 K/UL (0.1-1.30); MONOCYTES % (AUTO) 8.3 % (0.0-11.0); NEUTROPHILS # (AUTO) 3.5 K/UL (1.8-8.9); NEUTROPHILS % (AUTO) 62.1 % (38.5-71.5); PLATELET COUNT (AUTO) 247 K/UL (150-450); RED BLOOD CELL COUNT(AUTO) 3.99 MIL/UL (4.2-5.4); WHITE BLOOD COUNT (AUTO) 5.7 K/UL (4.0-11.2)
[2017-02-20] MEDS ORDERED: HYDROMORPHONE 2 MG/1 ML DISP.SYRIN ONE ×2 (19:56→21:11)
[2017-02-20] MEDS ORDERED: ONDANSETRON 4 MG/2 ML VIAL ONE ×2 (19:56→21:11)
[2017-02-20] MEDS ORDERED: methylPREDNISolone SOD SUCC 125 MG/2 ML VIAL ONE (19:56)
--- NOTE | 2017-02-20 19:56 | NUR ---
EKG obtained. IV established, labs drawn and sent. Pt medicated for discomfort and shortness of breath. Will monitor for effects of medication. Pt speaking full sentences, resp even and unlabored, no obvious resp distress noted. CXR obtained. Pt resting in position of comfort for self.
[2017-02-20 19:59] LABS: CARBON DIOXIDE 36 mmol/L (21-32); CHLORIDE 98 mmol/L (98-107); CREATININE 0.9 mg/dL (0.6-1.3); GLUCOSE 72 mg/dL (74-106); POTASSIUM 4.3 mmol/L (3.5-5.1); UREA NITROGEN, BLOOD 16 mg/dL (7-18)
[2017-02-20 20:11] LABS: ALANINE AMINOTRANSFERASE 20 U/L (14-59); ALKALINE PHOSPHATASE 84 U/L (50-136); ASPARTATE AMINOTRANSFERASE 15 U/L (15-37); BILIRUBIN,DIRECT < 0.1 mg/dL (0.0-0.2); BILIRUBIN,TOTAL 0.1 mg/dL (0.2-1.0); TOTAL PROTEIN, SERUM 6.1 g/dL (6.4-8.2)
[2017-02-20] MEDS ORDERED: ALBUTEROL SULFATE 2.5 MG/3 ML NEBU ONE (20:16)
[2017-02-20] MEDS ORDERED: IPRATROPIUM BROMIDE 0.5 MG/2.5 ML NEBU ONE (20:17)
--- NOTE | 2017-02-20 20:40 | NUR ---
Pt resting in position of comfort for self. Resp even and unlabored. Speaking full sentences on the phone to family. No resp distress noted. Pt sts pain has improved slightly to a 7/10 and is tolerable at this time.
[2017-02-20] MEDS ORDERED: ONDANSETRON IV *ER 4 MG/2 ML VIAL IV ONE (21:00)
--- NOTE | 2017-02-20 21:03 | NUR ---
Pt to be discharged per Dr. Madrigal. Pt requested one more dose of pain medication prior to discharge because she sts she wont be able to fill her rx until tomorrow. Dr. Madrigal notied and pt medicated. Will monitor pt for effects of medication.
--- NOTE | 2017-02-20 21:20 | NUR ---
[facility] CALLED. ETA 10-20MIN.
--- NOTE | 2017-02-20 21:25 | NUR ---
Pt sts pain improved. Pt stable for discharge per Dr. Madrigal. IV dc'd, catheter intact. Drsg applied. No problems noted to site. Pt given ACI. Pt verbalized understanding of dc instructions. Pt ambulated out of er with steady gait to wait in wr for the taxi.
[2017-02-20 22:28] VITALS: BP 123/77
== END 2017-02-20 21:25 | disposition home or self-care (01) ==
LOC: ER 18:41
DX: J44.1 Chronic obstructive pulmonary disease with (acute) exacerbation (principal); I10 Essential (primary) hypertension; K21.9 Gastro-esophageal reflux disease without esophagitis; Z79.82 Long term (current) use of aspirin; Z90.49 Acquired absence of other specified parts of digestive tract; Z98.84 Bariatric surgery status; F17.200 Nicotine dependence, unspecified, uncomplicated
CPT/HCPCS: 36415; 70030-TC; 71010; 85025; 93005; A4663; J1170; J2405; J2930; J3590; J7030

== ENCOUNTER 2017-03-12 18:40 | Emergency (ER) | payer MEDICARE, MEDICAID ==
[~2017-03-12] VITALS: Ht 167.6 cm; Wt 116.1 kg
[2017-03-12] MEDS ORDERED: CHOL200010 PO (19:04)
[2017-03-12] MEDS ORDERED: ALBU18HF2 INH (19:04)
[2017-03-12 19:39] LABS: BASOPHILS % (AUTO) 0.7 % (0.0-2.0); EOSINOPHILS # (AUTO) 0.2 K/uL (0.0-0.7); EOSINOPHILS % (AUTO) 4.6 % (0.0-7.0); HEMATOCRIT 36.1 % (37-47); HEMOGLOBIN 12.1 G/DL (12.0-16.0); LYMPHOCYTES # (AUTO) 1.3 K/UL (0.8-4.8); LYMPHOCYTES % (AUTO) 29.5 % (20.5-51.5); MEAN CORPUSCULAR HGB CONC 34 g/dL (32.0-37.0); MEAN CORPUSCULAR VOLUME 86.4 FL (81.0-99.0); MONOCYTES # (AUTO) 0.4 K/UL (0.1-1.30); NEUTROPHILS # (AUTO) 2.4 K/UL (1.8-8.9); NEUTROPHILS % (AUTO) 56.2 % (38.5-71.5); PLATELET COUNT (AUTO) 242 K/UL (150-450); RED BLOOD CELL COUNT(AUTO) 4.18 MIL/UL (4.2-5.4); WHITE BLOOD COUNT (AUTO) 4.3 K/UL (4.0-11.2)
[2017-03-12 19:44] LABS: CARBON DIOXIDE 35 mmol/L (21-32); CHLORIDE 98 mmol/L (98-107); CREATININE 0.9 mg/dL (0.6-1.3); GLUCOSE 79 mg/dL (74-106); UREA NITROGEN, BLOOD 12 mg/dL (7-18)
--- NOTE | 2017-03-12 19:47 | NUR ---
PATIENT OUT OF UNIT FOR CT SCAN VIA WHEELCHAIR
[2017-03-12 19:50] LABS: ALANINE AMINOTRANSFERASE 17 U/L (14-59); ALKALINE PHOSPHATASE 91 U/L (50-136); ASPARTATE AMINOTRANSFERASE 18 U/L (15-37); BILIRUBIN,DIRECT < 0.1 mg/dL (0.0-0.2); BILIRUBIN,TOTAL 0.2 mg/dL (0.2-1.0); TOTAL PROTEIN, SERUM 6.9 g/dL (6.4-8.2)
[2017-03-12 20:00] LABS: *BILIRUBIN,URIN NEGATIVE (NEGATIVE); *BLOOD, URINE Trace-intact (NEGATIVE); *CLARITY,URINE CLEAR (CLEAR); *COLOR,URINE YELLOW (YELLOW); *KETONES,URINE NEGATIVE (NEGATIVE); *PROTEIN,URINE NEGATIVE (NEGATIVE); *UROBILINOGEN,URINE 0.2 E.U./dl (NORMAL); LEUKOCYTE ESTERASE ,URINE NEGATIVE (NEGATIVE); NITRITE, URINE NEGATIVE (NEGATIVE); UGLUCOSE NEGATIVE (NEGATIVE)
[2017-03-12 20:02] LABS: *URINE HCG, QUAL NEGATIVE (NEGATIVE)
--- NOTE | 2017-03-12 20:02 | NUR ---
PATEINT BACK FROM CT SCAN WITH NO DISTRESS NOTED
[2017-03-12 20:04] LABS: WBC,URINE 0-3 /HPF (0-3)
[2017-03-12 20:05] LABS: BACTERIA,URINE FEW /HPF (NONE SEEN); SQUAMOUS EPITHELIAL CELL,UR FEW /HPF (NONE SEEN)
--- NOTE | 2017-03-12 21:15 | NUR ---
PATIENT STATES "I FEEL ALOT BETTER NOW."
--- NOTE | 2017-03-12 21:29 | NUR ---
Patient discharged to home in stable conditon. Written and verbal after care instructions given. Patient verbalizes understanding of instructions.
[2017-03-12 21:30] VITALS: BP 120/88
== END 2017-03-12 21:33 | disposition home or self-care (01) ==
LOC: ER 19:00
DX: H81.10 Benign paroxysmal vertigo, unspecified ear (principal); F17.200 Nicotine dependence, unspecified, uncomplicated; I10 Essential (primary) hypertension; K21.9 Gastro-esophageal reflux disease without esophagitis; Z91.018 Allergy to other foods; Z90.49 Acquired absence of other specified parts of digestive tract
CPT/HCPCS: 36415; 70450; 71010; 84703; 85025; 93005; A4663; J1200; J2930; J3490; J8597

== ENCOUNTER 2017-05-25 04:35 | Inpatient (IN) | payer MEDICARE, MEDICAID ==
[~2017-05-25] VITALS: Ht 167.6 cm; Wt 113.9 kg
[~2017-05-25 04:35] MED LIST changes: +ALBU18HF2 INH; -ALBU8.5H8 IH; -ASPI81TA31 PO; -CARBAMAZEPINE 200 MG PO; +CHOL200010 PO; -FLUO20CA36 PO; -FLUT1DIS28 INH; -HYDROCO/APAP TAB 10-325MG PO
[2017-05-25] MEDS ORDERED: ALBUTEROL SULFATE 2.5 MG/3 ML NEBU NEB ONE (04:45)
[2017-05-25] MEDS ORDERED: predniSONE 10 MG TABLET PO ONE (04:45)
[2017-05-25] MEDS ORDERED: IPRATROPIUM BROMIDE 0.5 MG/2.5 ML NEBU NEB ONE (04:45)
--- NOTE | 2017-05-25 05:00 | NUR ---
Pt is received alert, responsive as she came in c/o SOB X1week with back pain and legs cramping. Her care continue as awaits MD orders.
[2017-05-25] MEDS ORDERED: predniSONE 20 MG TABLET ONE (05:10)
[2017-05-25] MEDS ORDERED: ONDANSETRON IV *ER 4 MG/2 ML VIAL IV ONE ×3 (05:15→09:15)
[2017-05-25] MEDS ORDERED: OXYCODONE/APAP 5-325 MG TABLET PO ONE (05:15)
[2017-05-25] MEDS ORDERED: KETOROLAC TROMETHAMINE 30 MG INJ IVP ONE (05:15)
[2017-05-25] MEDS ORDERED: ALBUTEROL SULFATE 2.5 MG/3 ML NEBU ONE (05:16)
[2017-05-25] MEDS ORDERED: IPRATROPIUM BROMIDE 0.5 MG/2.5 ML NEBU ONE (05:16)
--- NOTE | 2017-05-25 05:20 | NUR ---
Pt remain alert, responsive as she is been medicated aas ordered and Nebulizer treatment was given bu RT. Her care continue while monitor.
[2017-05-25 05:27] LABS: POTASSIUM 3.3 mmol/L (3.5-5.1)
[2017-05-25 05:29] LABS: BASOPHILS % (AUTO) 0.8 % (0.0-2.0); EOSINOPHILS # (AUTO) 0.3 K/uL (0.0-0.7); EOSINOPHILS % (AUTO) 6.6 % (0.0-7.0); HEMATOCRIT 35.5 % (31.2-41.9); HEMOGLOBIN 11.7 g/dL (10.9-14.3); LYMPHOCYTES # (AUTO) 1.7 K/uL (20.0-40.0); LYMPHOCYTES % (AUTO) 35.7 % (20.5-51.5); MEAN CORPUSCULAR HEMOGLOBIN 28.8 uug (24.7-32.8); MEAN CORPUSCULAR HGB CONC 33 g/dL (32.3-35.6); MEAN CORPUSCULAR VOLUME 87.4 fL (75.5-95.3); MONOCYTES # (AUTO) 0.4 K/uL (2.0-10.0); MONOCYTES % (AUTO) 7.7 % (0.0-11.0); NEUTROPHILS # (AUTO) 2.3 K/uL (1.8-8.9); NEUTROPHILS % (AUTO) 49.2 % (38.5-71.5); PLATELET COUNT (AUTO) 237 K/uL (179-408); RED BLOOD CELL COUNT(AUTO) 4.06 MIL/uL (3.63-4.92); WHITE BLOOD COUNT (AUTO) 4.7 K/uL (3.8-11.8)
[2017-05-25] MEDS ORDERED: OXYCODONE/APAP 5-325 MG TABLET ONE (05:30)
[2017-05-25] MEDS ORDERED: LORAZEPAM 2 MG/1 ML VIAL IV ONE (05:30)
[2017-05-25] MEDS ORDERED: ONDANSETRON 4 MG/2 ML VIAL ONE ×3 (05:30→09:30)
[2017-05-25 05:38] LABS: BILIRUBIN,DIRECT 0.1 mg/dL (0.0-0.2); BILIRUBIN,TOTAL 0.2 mg/dL (0.2-1.0); TOTAL PROTEIN, SERUM 6.6 g/dL (6.4-8.2)
[2017-05-25] MEDS ORDERED: LORAZEPAM 0.5 MG TABLET ONE (05:58)
--- NOTE | 2017-05-25 06:15 | NUR ---
Pt remain alert, responsive as new orders noted for a repeat off EKG at 0830. Her care continue.
--- NOTE | 2017-05-25 07:09 | NUR ---
Pt remain alert, responsive as report is given to the AM receiving nurse. Her care continue as awaits a repeat off Trop as the 1st set is negetive.
--- NOTE | 2017-05-25 08:15 | NUR ---
Telemetry bed can not be assigned according to internet marketing assistantthalia Adamson. No available nurses to take care of the pt. dr Huang notified. Nursing supervisor frame assembly Kelsea notified.
[2017-05-25] MEDS ORDERED: IV NORMAL SALINE 500 ML IV ONE (08:30)
[2017-05-25] MEDS ORDERED: MORPHINE SULFATE 4 MG/1 ML DISP.SYRIN IV ONE (09:07)
[2017-05-25] MEDS ORDERED: MORPHINE SULFATE 4 MG/1 ML DISP.SYRIN ONE (09:26)
--- NOTE | 2017-05-25 09:30 | NUR ---
Pt is requesting to be transfered to her telemetry room as soon as possible. Telemetry floor was called. Talked to set up and chargerthalia Adamson admiting rn is not available. pt was notified.
--- NOTE | 2017-05-25 10:57 | NUR ---
hospital intern called for report. report was given. pt was transferd to telemetry room #223.
[2017-05-25] MEDS ORDERED: ZOLPIDEM 5 MG TABLET PO PRN (11:00)
[2017-05-25] MEDS ORDERED: ESCITALOPRAM PO SCH (11:00)
[2017-05-25] MEDS ORDERED: MAGNESIUM HYDROXIDE 30 ML LIQUID UDC PO PRN (11:00)
[2017-05-25] MEDS ORDERED: ACETAMINOPHEN 325 MG TABLET PO PRN (11:00)
[2017-05-25 11:15] VITALS: BP 108/55
[2017-05-25] MEDS: CLONAZEPAM 1 MG TABLET PO SCH ×2 (11:24→17:11)
[2017-05-25] MEDS: CARBAMAZEPINE 200 MG TABLET PO SCH ×2 (11:24→17:11)
[2017-05-25] MEDS: GABAPENTIN 300 MG CAPSULE PO SCH ×3 (11:25→17:11)
[2017-05-25] MEDS ORDERED: LORA-588 PO (11:34)
[2017-05-25] MEDS ORDERED: LEVOFLOXACIN 500 MG/D5W 500 MG in PREMIXED 1 EACH IV SCH (12:00)
[2017-05-25] MEDS: MORPHINE SULFATE 2 MG/1 ML DISP.SYRIN IV PRN ×2 (12:14→16:09)
--- NOTE | 2017-05-25 12:44 | NUR ---
Patient brought in a wheelchair from the ER AT 1115 in stable conditions. Admissions charted. Physical assessment done and documented. IV right AC #20 intact. C/O of headache and shoulder pain, medicated as ordered. Safety and comfort provided. Will continue monitoring.
[2017-05-25] MEDS: HYDROCODONE/APAP 10-325 MG TABLET PO PRN (13:27)
[2017-05-25] MEDS: methylPREDNISolone SOD SUCC 40 MG/ML VIAL IV SCH ×2 (13:35→21:33)
[2017-05-25] MEDS ORDERED: ONDANSETRON HCL 4 MG TABLET PO PRN (14:30)
[2017-05-25] MEDS: LEVOFLOXACIN 500 MG/D5W 500 MG in PREMIXED 1 EACH IV SCH (14:53)
[2017-05-25] MEDS: IPRATROPIUM BROMIDE 0.5 MG/2.5 ML NEBU NEB PRN ×2 (16:34→23:21)
[2017-05-25] MEDS: ALBUTEROL SULFATE 2.5 MG/3 ML NEBU NEB PRN ×2 (16:34→23:21)
--- NOTE | 2017-05-25 18:19 | NUR ---
PATIENT IS IN BED RESTING. NO S/S OF DISTRESS NOTED. C/O OF PAIN, HEADACHES, NAUSEA, AND VOMITING. MEDICATED ORDERED. MORPHINE WAS CHANGED TO DILAUDID PO 4MG BY DR. GUTIERREZ, PATIENT VERBALIZED THAT MEDICATION WAS GIVEN HER HEADACHES. ONE DOSE OF ZOFRAN WAS GIVEN, NOT EFFECTIVE, CONTINUE COMPLAINING OF N/V. ENSURE WAS ORDERED. SAFETY AND COMFORT PROVIDED. WILL CONTINUE MONITORING.
[2017-05-25 20:26] VITALS: BP 111/54
[2017-05-25] MEDS ORDERED: DOCUSATE SODIUM 100 MG CAPSULE PO SCH (21:00)
[2017-05-25] MEDS: HYDROMORPHONE HCL 2 MG TABLET PO PRN (21:33)
[2017-05-26 00:01] VITALS: BP 132/68
[2017-05-26] MEDS: HYDROMORPHONE HCL 2 MG TABLET PO PRN ×4 (01:35→13:25)
[2017-05-26] MEDS: HYDROCODONE/APAP 10-325 MG TABLET PO PRN (02:56)
[2017-05-26 04:00] VITALS: BP 110/65
[2017-05-26] MEDS: methylPREDNISolone SOD SUCC 40 MG/ML VIAL IV SCH ×2 (06:03→14:00)
[2017-05-26 06:57] LABS: BASOPHILS % (AUTO) 0.2 % (0.0-2.0); HEMATOCRIT 30.7 % (31.2-41.9); HEMOGLOBIN 10.4 g/dL (10.9-14.3); LYMPHOCYTES # (AUTO) 0.9 K/uL (20.0-40.0); LYMPHOCYTES % (AUTO) 11.2 % (20.5-51.5); MEAN CORPUSCULAR HEMOGLOBIN 29.3 uug (24.7-32.8); MEAN CORPUSCULAR HGB CONC 34 g/dL (32.3-35.6); MEAN CORPUSCULAR VOLUME 86.9 fL (75.5-95.3); MONOCYTES # (AUTO) 0.3 K/uL (2.0-10.0); MONOCYTES % (AUTO) 3.8 % (0.0-11.0); NEUTROPHILS # (AUTO) 7.2 K/uL (1.8-8.9); NEUTROPHILS % (AUTO) 84.8 % (38.5-71.5); PLATELET COUNT (AUTO) 251 K/uL (179-408); RED BLOOD CELL COUNT(AUTO) 3.54 MIL/uL (3.63-4.92); WHITE BLOOD COUNT (AUTO) 8.4 K/uL (3.8-11.8)
[2017-05-26] MEDS ORDERED: PANTOPRAZOLE SODIUM 40 MG TABLET.DR PO SCH (07:00)
[2017-05-26 07:27] LABS: BILIRUBIN,TOTAL 0.2 mg/dL (0.2-1.0); CREATININE 0.8 mg/dL (0.6-1.3); MAGNESIUM 1.6 mg/dL (1.8-2.4); PHOSPHOROUS 3.2 mg/dL (2.5-4.9); POTASSIUM 4.1 mmol/L (3.5-5.1); TOTAL PROTEIN, SERUM 6.4 g/dL (6.4-8.2)
[2017-05-26 08:00] VITALS: BP 140/67
[2017-05-26] MEDS: CARBAMAZEPINE 200 MG TABLET PO SCH (08:34)
[2017-05-26] MEDS: CLONAZEPAM 1 MG TABLET PO SCH (08:34)
[2017-05-26] MEDS: GABAPENTIN 300 MG CAPSULE PO SCH ×2 (08:34→13:25)
[2017-05-26] MEDS ORDERED: ESCITALOPRAM OXALATE 10 MG TABLET PO SCH (09:00)
[2017-05-26] MEDS ORDERED: CHOLECALCIFEROL 1,000 UNIT TABLET PO SCH (09:00)
[2017-05-26] MEDS ORDERED: MAGNESIUM OXIDE 400 MG TABLET PO ONE (10:15)
[2017-05-26 12:05] VITALS: BP 97/52
[2017-05-26] MEDS ORDERED: METH4TAB3 PO (12:24)
[2017-05-26] MEDS: LEVOFLOXACIN 500 MG/D5W 500 MG in PREMIXED 1 EACH IV SCH (14:00)
--- NOTE | 2017-05-26 14:30 | NUR ---
PT REFUSED 1400 MEDICATIONS BECAUSE SHE IS DISCHARGING. PT D/C WITH EXITCARE PACKET, ALL BELONGINGS, VALUABLES, AND PRESCRIPTIONS. PT IS D/C HOME BY TAXI, PT IS CALM, COOPERATIVE, STABLE. IV REMOVED. SKIN INTACT.
[2017-05-26 15:12] VITALS: BP 115/66
== END 2017-05-26 14:30 | disposition home or self-care (01) | DRG 191 ==
LOC: ER 04:52 → TELE 10:51 → MED 05-26 10:15
PROVIDERS: ADMIT Internal Medicine; ATTEND Internal Medicine
DX: J44.1 Chronic obstructive pulmonary disease with (acute) exacerbation (principal); Z68.41 Body mass index [BMI] 40.0-44.9, adult; E66.01 Morbid (severe) obesity due to excess calories; E87.1 Hypo-osmolality and hyponatremia; J70.5 Respiratory conditions due to smoke inhalation; F11.20 Opioid dependence, uncomplicated; F17.210 Nicotine dependence, cigarettes, uncomplicated; T59.811A Toxic effect of smoke, accidental (unintentional), initial encounter; Z98.84 Bariatric surgery status; E87.6 Hypokalemia; F15.11 Other stimulant abuse, in remission; F14.11 Cocaine abuse, in remission; E78.5 Hyperlipidemia, unspecified; Z80.49 Family history of malignant neoplasm of other genital organs; Z82.49 Family history of ischemic heart disease and other diseases of the circulatory system; Z79.899 Other long term (current) drug therapy; K21.9 Gastro-esophageal reflux disease without esophagitis; I10 Essential (primary) hypertension; G89.4 Chronic pain syndrome; G43.A0 Cyclical vomiting, in migraine, not intractable; F41.9 Anxiety disorder, unspecified; E86.0 Dehydration; F31.9 Bipolar disorder, unspecified
CPT/HCPCS: 36415; 70030-TC; 71010; 83735; 84100; 85025; 93005; 94640; A4663; J1956; J2270; J2405; J2920; J3590; J7040; J7512; Q0162

== ENCOUNTER 2017-05-29 20:14 | Emergency (ER) | payer MEDICARE, MEDICAID ==
[~2017-05-29] VITALS: Ht 167.6 cm; Wt 114.3 kg
[~2017-05-29 20:14] MED LIST changes: +LORA-588 PO; -LOSA50TA21 PO; +METH4TAB3 PO
[2017-05-29] MEDS: AZITHROMYCIN 250 MG TABLET PO ONE (22:45)
[2017-05-29] MEDS: MORPHINE SULFATE 4 MG/1 ML DISP.SYRIN IM ONE (22:46)
[2017-05-29] MEDS: ONDANSETRON 4 MG/2 ML VIAL IM ONE (22:49)
[2017-05-29] MEDS ORDERED: AZITHROMYCIN 250 MG TABLET ONE (23:01)
[2017-05-29] MEDS ORDERED: MORPHINE SULFATE 4 MG/1 ML DISP.SYRIN ONE (23:01)
[2017-05-29] MEDS ORDERED: ONDANSETRON 4 MG/2 ML VIAL ONE (23:02)
--- NOTE | 2017-05-29 23:12 | NUR ---
Patient discharged to home in stable conditon. Written and verbal after care instructions given. Patient verbalizes understanding of instructions. PATIENT LEFT WITH STABLE GAIT.
[2017-05-29 23:13] VITALS: BP 159/88
== END 2017-05-29 23:14 | disposition home or self-care (01) ==
LOC: ER 20:14
DX: G89.29 Other chronic pain (principal); J06.9 Acute upper respiratory infection, unspecified; J44.9 Chronic obstructive pulmonary disease, unspecified; K21.9 Gastro-esophageal reflux disease without esophagitis; I10 Essential (primary) hypertension; Z98.84 Bariatric surgery status; F17.200 Nicotine dependence, unspecified, uncomplicated; Z91.018 Allergy to other foods; Z90.49 Acquired absence of other specified parts of digestive tract
CPT/HCPCS: 96372 ×2; 99284; A4663; J2270; J2405; Q0144

== ENCOUNTER 2017-06-13 19:10 | Emergency (ER) | payer MEDICARE, MEDICAID ==
[~2017-06-13] VITALS: Ht 167.6 cm; Wt 113.4 kg
[2017-06-13] MEDS ORDERED: methylPREDNISolone SOD SUCC 125 MG/2 ML VIAL IV ONE (21:15)
[2017-06-13] MEDS ORDERED: IV NORMAL SALINE 1000 ML BAG IV ONE (21:15)
[2017-06-13] MEDS ORDERED: IPRATROPIUM BROMIDE 0.5 MG/2.5 ML NEBU NEB ONE (21:15)
[2017-06-13] MEDS ORDERED: ALBUTEROL SULFATE 2.5 MG/3 ML NEBU NEB ONE (21:15)
[2017-06-13] MEDS ORDERED: IPRATROPIUM BROMIDE 0.5 MG/2.5 ML NEBU ONE (21:28)
[2017-06-13] MEDS ORDERED: ALBUTEROL SULFATE 2.5 MG/ 0.5 ML NEBU ONE (21:29)
[2017-06-13 21:44] LABS: BASOPHILS % (AUTO) 0.7 % (0.0-2.0); EOSINOPHILS # (AUTO) 0.3 K/uL (0.0-0.7); EOSINOPHILS % (AUTO) 6.6 % (0.0-7.0); HEMATOCRIT 33.6 % (31.2-41.9); HEMOGLOBIN 11.6 g/dL (10.9-14.3); LYMPHOCYTES # (AUTO) 1.7 K/uL (20.0-40.0); LYMPHOCYTES % (AUTO) 33.5 % (20.5-51.5); MEAN CORPUSCULAR HEMOGLOBIN 29.5 uug (24.7-32.8); MEAN CORPUSCULAR HGB CONC 35 g/dL (32.3-35.6); MEAN CORPUSCULAR VOLUME 85.3 fL (75.5-95.3); MONOCYTES # (AUTO) 0.4 K/uL (2.0-10.0); MONOCYTES % (AUTO) 8.4 % (0.0-11.0); NEUTROPHILS # (AUTO) 2.6 K/uL (1.8-8.9); NEUTROPHILS % (AUTO) 50.8 % (38.5-71.5); PLATELET COUNT (AUTO) 230 K/uL (179-408); RED BLOOD CELL COUNT(AUTO) 3.94 MIL/uL (3.63-4.92); WHITE BLOOD COUNT (AUTO) 5.1 K/uL (3.8-11.8)
[2017-06-13 21:48] LABS: CREATININE 0.9 mg/dL (0.6-1.3); POTASSIUM 3.7 mmol/L (3.5-5.1)
[2017-06-13] MEDS ORDERED: methylPREDNISolone SOD SUCC 125 MG/2 ML VIAL ONE (21:56)
[2017-06-13 22:00] LABS: BILIRUBIN,DIRECT 0.1 mg/dL (0.0-0.2); BILIRUBIN,TOTAL 0.2 mg/dL (0.2-1.0)
[2017-06-13] MEDS ORDERED: METOCLOPRAMIDE HCL 10 MG/2 ML VIAL IV ONE (22:00)
[2017-06-13] MEDS ORDERED: METOCLOPRAMIDE HCL 10 MG/2 ML VIAL ONE (22:27)
--- NOTE | 2017-06-13 22:40 | NUR ---
Patient discharged to home in stable conditon. Written and verbal after care instructions given. Patient verbalizes understanding of instructions. PATIENT LEFT WITH STABLE GAIT. PAIN MEDICATION NOT GIVEN. PATIENT DID NOT WANT TO WAIT.
[2017-06-13] MEDS ORDERED: HYDROCODONE/APAP 10-325 MG TABLET PO ONE (22:45)
[2017-06-13 22:46] VITALS: BP 122/90
== END 2017-06-13 22:46 | disposition home or self-care (01) ==
LOC: ER 19:10
DX: J44.1 Chronic obstructive pulmonary disease with (acute) exacerbation (principal); I10 Essential (primary) hypertension; K21.9 Gastro-esophageal reflux disease without esophagitis; Z98.84 Bariatric surgery status; R07.9 Chest pain, unspecified; F17.200 Nicotine dependence, unspecified, uncomplicated; Z90.49 Acquired absence of other specified parts of digestive tract; F14.10 Cocaine abuse, uncomplicated; Z91.018 Allergy to other foods
CPT/HCPCS: 36415; 71045; 80048; 80076; 83880; 84484; 85025; 93005; 94640; 96361; 96374; 96375; 99285; A4663; J2765; J2930; J3590; J7030; 70030-TC

== ENCOUNTER 2017-06-29 17:05 | Inpatient (IN) | payer MEDICARE, MEDICAID ==
[~2017-06-29] VITALS: Ht 165.1 cm; Wt 123.4 kg
[2017-06-29] MEDS ORDERED: ALBUTEROL SULFATE 2.5 MG/ 0.5 ML NEBU NEB ONE (17:33)
[2017-06-29] MEDS ORDERED: IPRATROPIUM BROMIDE 0.5 MG/2.5 ML NEBU NEB ONE (17:45)
[2017-06-29] MEDS ORDERED: IPRATROPIUM BROMIDE 0.5 MG/2.5 ML NEBU ONE (17:51)
[2017-06-29] MEDS ORDERED: ALBUTEROL SULFATE 2.5 MG/ 0.5 ML NEBU ONE (17:52)
[2017-06-29 18:02] LABS: BASOPHILS % (AUTO) 0.6 % (0.0-2.0); EOSINOPHILS # (AUTO) 0.1 K/uL (0.0-0.7); HEMATOCRIT 36.6 % (31.2-41.9); HEMOGLOBIN 12.3 g/dL (10.9-14.3); LYMPHOCYTES # (AUTO) 0.9 K/uL (20.0-40.0); LYMPHOCYTES % (AUTO) 11.5 % (20.5-51.5); MEAN CORPUSCULAR HEMOGLOBIN 28.6 uug (24.7-32.8); MEAN CORPUSCULAR HGB CONC 34 g/dL (32.3-35.6); MEAN CORPUSCULAR VOLUME 85.1 fL (75.5-95.3); MONOCYTES # (AUTO) 0.2 K/uL (2.0-10.0); MONOCYTES % (AUTO) 2.1 % (0.0-11.0); NEUTROPHILS # (AUTO) 6.3 K/uL (1.8-8.9); NEUTROPHILS % (AUTO) 84.8 % (38.5-71.5); PLATELET COUNT (AUTO) 255 K/uL (179-408); WHITE BLOOD COUNT (AUTO) 7.4 K/uL (3.8-11.8)
[2017-06-29] MEDS ORDERED: MORPHINE SULFATE 2 MG/1 ML DISP.SYRIN IV ONE (18:04)
[2017-06-29 18:06] LABS: POTASSIUM 4.1 mmol/L (3.5-5.1)
[2017-06-29 18:11] LABS: *BILIRUBIN,URIN NEGATIVE (NEGATIVE); *BLOOD, URINE Trace-lysed (NEGATIVE); *CLARITY,URINE CLEAR (CLEAR); *COLOR,URINE YELLOW (YELLOW); *KETONES,URINE NEGATIVE (NEGATIVE); *PROTEIN,URINE NEGATIVE (NEGATIVE); *UROBILINOGEN,URINE 0.2 E.U./dl (NORMAL); LEUKOCYTE ESTERASE ,URINE NEGATIVE (NEGATIVE); NITRITE, URINE NEGATIVE (NEGATIVE); PH,URINE 7.5 (5.0-8.0); UGLUCOSE NEGATIVE (NEGATIVE)
[2017-06-29 18:12] LABS: BILIRUBIN,TOTAL 0.2 mg/dL (0.2-1.0); TOTAL PROTEIN, SERUM 7.5 g/dL (6.4-8.2)
[2017-06-29] MEDS ORDERED: ONDANSETRON IV *ER 4 MG/2 ML VIAL IV ONE (18:15)
[2017-06-29 18:22] LABS: SQUAMOUS EPITHELIAL CELL,UR MODERATE /HPF (NONE SEEN); WBC,URINE 0-3 /HPF (0-3)
[2017-06-29] MEDS ORDERED: MORPHINE SULFATE 4 MG/1 ML DISP.SYRIN ONE (18:28)
[2017-06-29] MEDS ORDERED: ONDANSETRON 4 MG/2 ML VIAL ONE ×2 (18:28→19:34)
[2017-06-29] MEDS ORDERED: HYDROMORPHONE 1 MG/1 ML DISP.SYRIN IV ONE (19:15)
[2017-06-29] MEDS ORDERED: ONDANSETRON 4 MG/2 ML VIAL IV ONE (19:15)
[2017-06-29] MEDS ORDERED: HYDROMORPHONE 2 MG/1 ML DISP.SYRIN ONE (19:34)
[2017-06-29] MEDS ORDERED: LORAZEPAM 2 MG/1 ML VIAL IV ONE (20:15)
[2017-06-29] MEDS ORDERED: LORAZEPAM 2 MG/1 ML VIAL ONE (20:36)
[2017-06-29 20:45] VITALS: BP 122/67
[2017-06-29] MEDS ORDERED: ALBUTEROL SULFATE 2.5 MG/3 ML NEBU NEB PRN (21:15)
[2017-06-29] MEDS ORDERED: ACETAMINOPHEN 325 MG TABLET PO PRN (21:15)
[2017-06-29] MEDS ORDERED: ONDANSETRON 4 MG/2 ML VIAL IV PRN (21:15)
[2017-06-29] MEDS ORDERED: ZOLPIDEM 5 MG TABLET PO PRN (21:15)
[2017-06-29] MEDS ORDERED: IPRATROPIUM BROMIDE 0.5 MG/2.5 ML NEBU NEB PRN (21:15)
[2017-06-29] MEDS ORDERED: MAGNESIUM HYDROXIDE 30 ML LIQUID UDC PO PRN (21:15)
[2017-06-29] MEDS ORDERED: NITROGLYCERIN 0.4 MG/TAB BOTTLE SL PRN (21:15)
[2017-06-29] MEDS: CARBAMAZEPINE 200 MG TABLET PO SCH (21:34)
[2017-06-29] MEDS: GABAPENTIN 300 MG CAPSULE PO SCH (21:34)
[2017-06-29] MEDS: CLONAZEPAM 1 MG TABLET PO SCH (21:34)
[2017-06-29] MEDS: HYDROMORPHONE 1 MG/1 ML DISP.SYRIN IV PRN (21:35)
[2017-06-29] MEDS ORDERED: ZOLPIDEM 5 MG TABLET ONE (21:48)
[2017-06-29] MEDS ORDERED: HYDROMORPHONE 1 MG/1 ML DISP.SYRIN ONE (21:48)
[2017-06-29] MEDS ORDERED: GABAPENTIN 300 MG CAPSULE ONE (21:49)
[2017-06-29] MEDS ORDERED: CLONAZEPAM 1 MG TABLET ONE (21:49)
[2017-06-29] MEDS ORDERED: CARBAMAZEPINE 200 MG TABLET ONE (21:50)
[2017-06-29] MEDS: HYDROCODONE/APAP 5-325MG TABLET PO PRN (23:11)
[2017-06-29] MEDS ORDERED: HYDROCODONE/APAP 5-325MG TABLET ONE (23:25)
[2017-06-30 00:34] VITALS: BP 120/60
[2017-06-30] MEDS ORDERED: ALBUTEROL SULFATE 2.5 MG/3 ML NEBU ONE (01:24)
[2017-06-30] MEDS ORDERED: HYDROMORPHONE 1 MG/1 ML DISP.SYRIN ONE ×2 (01:40→05:46)
[2017-06-30 04:00] VITALS: BP_SYST 115; BP_SYST 122; BP_DIAS 57; BP_DIAS 73
[2017-06-30] MEDS ORDERED: PANTOPRAZOLE SODIUM 40 MG TABLET.DR PO SCH (07:00)
[2017-06-30 07:21] LABS: HEMOGLOBIN 11.1 g/dL (10.9-14.3); LYMPHOCYTES # (AUTO) 1.4 K/uL (20.0-40.0); MONOCYTES # (AUTO) 0.8 K/uL (2.0-10.0); MONOCYTES % (AUTO) 7.8 % (0.0-11.0)
[2017-06-30 07:38] LABS: BASOPHILS % (AUTO) 0.2 % (0.0-2.0); EOSINOPHILS % (AUTO) 0.3 % (0.0-7.0); HEMATOCRIT 33.5 % (31.2-41.9); LYMPHOCYTES % (AUTO) 13.9 % (20.5-51.5); MEAN CORPUSCULAR HEMOGLOBIN 28.3 uug (24.7-32.8); MEAN CORPUSCULAR HGB CONC 33 g/dL (32.3-35.6); MEAN CORPUSCULAR VOLUME 85.2 fL (75.5-95.3); NEUTROPHILS # (AUTO) 7.6 K/uL (1.8-8.9); NEUTROPHILS % (AUTO) 77.8 % (38.5-71.5); PLATELET COUNT (AUTO) 261 K/uL (179-408); RED BLOOD CELL COUNT(AUTO) 3.93 MIL/uL (3.63-4.92)
[2017-06-30 07:39] LABS: WHITE BLOOD COUNT (AUTO) 9.8 K/uL (3.8-11.8)
[2017-06-30 08:56] LABS: CREATININE 0.9 mg/dL (0.6-1.3); PHOSPHOROUS 3.7 mg/dL (2.5-4.9); POTASSIUM 4.2 mmol/L (3.5-5.1)
[2017-06-30] MEDS ORDERED: ESCITALOPRAM OXALATE 10 MG TABLET PO SCH (09:00)
[2017-06-30] MEDS ORDERED: CHOLECALCIFEROL 1,000 UNIT TABLET PO SCH (09:00)
[2017-06-30] MEDS ORDERED: HYDROCHLOROTHIAZIDE 25 MG TABLET PO SCH (09:00)
[2017-06-30] MEDS ORDERED: ASPIRIN 81 MG TAB.CHEW PO SCH (09:00)
[2017-06-30] MEDS ORDERED: ESCITALOPRAM PO SCH (09:00)
[2017-06-30] MEDS: GABAPENTIN 300 MG CAPSULE PO SCH ×2 (09:06→12:19)
[2017-06-30] MEDS: CLONAZEPAM 1 MG TABLET PO SCH (09:06)
[2017-06-30] MEDS: HYDROMORPHONE 1 MG/1 ML DISP.SYRIN IV PRN (09:07)
[2017-06-30] MEDS: CARBAMAZEPINE 200 MG TABLET PO SCH (09:07)
[2017-06-30] MEDS: HYDROCODONE/APAP 5-325MG TABLET PO PRN (10:25)
[2017-06-30 11:32] VITALS: BP 107/61
[2017-06-30] MEDS ORDERED: HYDROMORPHONE 1 MG/1 ML DISP.SYRIN IV PRN (12:30)
[2017-06-30] MEDS ORDERED: NICOTINE 14 MG/24HR PATCH TD SCH (12:30)
[2017-06-30] MEDS ORDERED: HYDROCODONE/APAP 5-325MG TABLET PO PRN (12:30)
[2017-06-30] MEDS ORDERED: AMOXICILLIN-CLAVUL 875-125MG TABLET PO SCH (13:45)
[2017-06-30] MEDS ORDERED: LEVOFLOXACIN 500 MG TABLET PO SCH (14:00)
[2017-06-30] MEDS ORDERED: methylPREDNISolone 1 PACK TAB.DS.PK [4MG TAB] PO ONE (14:00)
[2017-06-30] MEDS ORDERED: predniSONE 10 MG TABLET PO SCH (15:15)
[2017-06-30] MEDS ORDERED: LACT1CAP59 PO (15:22)
[2017-06-30] MEDS ORDERED: LEVO500T2 PO (15:22)
[2017-06-30] MEDS ORDERED: ASPI81TA31 PO (15:22)
[2017-06-30] MEDS ORDERED: HYDR-3326 PO (15:22)
[2017-06-30] MEDS ORDERED: PRED10TA PO (15:22)
[2017-06-30 15:44] VITALS: BP 134/85
[2017-06-30] MEDS ORDERED: DOCUSATE SODIUM 100 MG CAPSULE PO SCH (21:00)
== END 2017-06-30 17:45 | disposition home or self-care (01) | DRG 191 ==
LOC: ER 17:05 → TELE 20:14
PROVIDERS: ADMIT Internal Medicine; ATTEND Internal Medicine
DX: J44.1 Chronic obstructive pulmonary disease with (acute) exacerbation (principal); F15.20 Other stimulant dependence, uncomplicated; I11.9 Hypertensive heart disease without heart failure; E66.01 Morbid (severe) obesity due to excess calories; Z68.42 Body mass index [BMI] 45.0-49.9, adult; E87.1 Hypo-osmolality and hyponatremia; J06.9 Acute upper respiratory infection, unspecified; M19.90 Unspecified osteoarthritis, unspecified site; G89.29 Other chronic pain; M54.2 Cervicalgia; M54.9 Dorsalgia, unspecified; T14.90XS Injury, unspecified, sequela; Y09 Assault by unspecified means; K21.9 Gastro-esophageal reflux disease without esophagitis; G43.909 Migraine, unspecified, not intractable, without status migrainosus; F17.210 Nicotine dependence, cigarettes, uncomplicated; F31.9 Bipolar disorder, unspecified; E78.5 Hyperlipidemia, unspecified; F15.11 Other stimulant abuse, in remission; F14.11 Cocaine abuse, in remission; Z90.49 Acquired absence of other specified parts of digestive tract; F41.9 Anxiety disorder, unspecified; Z87.440 Personal history of urinary (tract) infections; Z98.84 Bariatric surgery status; Z80.49 Family history of malignant neoplasm of other genital organs; Z79.899 Other long term (current) drug therapy; Z82.3 Family history of stroke; Z83.3 Family history of diabetes mellitus; Z82.49 Family history of ischemic heart disease and other diseases of the circulatory system; Z82.61 Family history of arthritis; Z87.81 Personal history of (healed) traumatic fracture; K52.9 Noninfective gastroenteritis and colitis, unspecified; R94.6 Abnormal results of thyroid function studies; Z76.5 Malingerer [conscious simulation]
CPT/HCPCS: 36415; 70030-TC; 71045; 83735; 84100; 84443; 84703; 85025; 93005; 93307; 94640; 94664; A4663; J1170; J2060; J2270; J2405; J3490; J3590; J7512

== ENCOUNTER 2017-08-24 19:16 | Emergency (ER) | payer MEDICARE, MEDICAID ==
[~2017-08-24] VITALS: Ht 167.6 cm; Wt 122.5 kg
[~2017-08-24 19:16] MED LIST changes: +ASPI81TA31 PO; +HYDR-3326 PO; -HYDR-3980 PO; +LACT1CAP59 PO; +LEVO500T2 PO; -LORA-588 PO; -METH4TAB3 PO; +PRED10TA PO
--- NOTE | 2017-08-24 19:48 | NUR ---
PT PRESENTS W/ MULTIPLE COMPLAINTS. PT STATES SHE HAS HX OF COPD, AND FEELS SHE IS HAVING AN EXACERBATION. SHE ALSO STATES SHE HAS BEEN HAVING RIGHT LOWER QUADRANT ABDOMINAL PAIN X2 DAYS.
--- NOTE | 2017-08-24 19:51 | NUR ---
SHARON ROBBINS AT BEDSIDE FOR MSE.
[2017-08-24] MEDS ORDERED: ALBUTEROL SULFATE 2.5 MG/3 ML NEBU NEB ONE (20:00)
[2017-08-24] MEDS ORDERED: predniSONE 20 MG TABLET PO ONE (20:00)
[2017-08-24] MEDS ORDERED: IPRATROPIUM BROMIDE 0.5 MG/2.5 ML NEBU NEB ONE (20:00)
--- NOTE | 2017-08-24 20:06 | NUR ---
Patient does not wish to proceed with medical care recommended by Dr. ROBBINS. Patient given information related to possible complications, up to and including , which could occur as a result of leaving the hospital at this time. Patient verbalizes understanding of risks involved due to leaving against medical advice. Patient has signed AMA form.
--- NOTE | 2017-08-24 20:08 | NUR ---
ALBUTEROL/ATROVENT TX LOGGED OUT/SCANNED FOR, BUT PT LEFT BEFORE TX WAS GIVEN.
[2017-08-24 20:13] VITALS: BP 140/92
== END 2017-08-24 20:14 | disposition left against medical advice (07) ==
LOC: ER 19:18
DX: G89.29 Other chronic pain (principal); I10 Essential (primary) hypertension; J44.9 Chronic obstructive pulmonary disease, unspecified; K21.9 Gastro-esophageal reflux disease without esophagitis; F17.210 Nicotine dependence, cigarettes, uncomplicated; Z90.89 Acquired absence of other organs; Z91.018 Allergy to other foods; Z79.82 Long term (current) use of aspirin; Z79.899 Other long term (current) drug therapy; Z79.2 Long term (current) use of antibiotics; Z53.29 Procedure and treatment not carried out because of patient's decision for other reasons
CPT/HCPCS: 93005; A4663

== ENCOUNTER 2017-09-21 05:50 | Emergency (ER) | payer MEDICARE, MEDICAID ==
[~2017-09-21] VITALS: Ht 167.6 cm; Wt 124.7 kg
[2017-09-21 06:58] LABS: *BILIRUBIN,URIN NEGATIVE (NEGATIVE); *BLOOD, URINE Trace-intact (NEGATIVE); *CLARITY,URINE CLEAR (CLEAR); *COLOR,URINE YELLOW (YELLOW); *KETONES,URINE NEGATIVE (NEGATIVE); *PROTEIN,URINE NEGATIVE (NEGATIVE); *UROBILINOGEN,URINE 0.2 E.U./dl (NORMAL); LEUKOCYTE ESTERASE ,URINE NEGATIVE (NEGATIVE); NITRITE, URINE NEGATIVE (NEGATIVE); UGLUCOSE NEGATIVE (NEGATIVE)
[2017-09-21] MEDS ORDERED: HYDROMORPHONE HCL 2 MG TABLET ONE ×2 (06:59→07:30)
[2017-09-21] MEDS ORDERED: IPRATROPIUM BROMIDE 0.5 MG/2.5 ML NEBU NEB ONE (07:00)
[2017-09-21] MEDS ORDERED: ALBUTEROL SULFATE 2.5 MG/3 ML NEBU NEB ONE (07:00)
[2017-09-21] MEDS ORDERED: predniSONE 20 MG TABLET PO ONE (07:00)
[2017-09-21] MEDS ORDERED: HYDROMORPHONE HCL 2 MG TABLET PO ONE ×2 (07:00→07:30)
[2017-09-21] MEDS ORDERED: IPRATROPIUM BROMIDE 0.5 MG/2.5 ML NEBU ONE (07:05)
[2017-09-21] MEDS ORDERED: ALBUTEROL SULFATE 2.5 MG/ 0.5 ML NEBU ONE (07:05)
[2017-09-21] MEDS ORDERED: predniSONE 20 MG TABLET ONE (07:12)
[2017-09-21 07:13] LABS: BACTERIA,URINE NONE SEEN /HPF (NONE SEEN); SQUAMOUS EPITHELIAL CELL,UR MODERATE /HPF (NONE SEEN); WBC,URINE 0-3 /HPF (0-3)
--- NOTE | 2017-09-21 07:13 | NUR ---
REPORT GIVEN TO HARISH PALMA.
[2017-09-21] MEDS ORDERED: LORAZEPAM 1 MG TABLET ONE (07:23)
--- NOTE | 2017-09-21 07:29 | NUR ---
Received pt for discharge after the po Ativan & po Dilaudid. Taxi voucher provided. Patient discharged to home in stable conditon. Written and verbal after care instructions given to patient. Patient verbalizes understanding of instructions.
[2017-09-21] MEDS ORDERED: LORAZEPAM 0.5 MG TABLET PO ONE (07:30)
== END 2017-09-21 07:31 | disposition home or self-care (01) ==
LOC: ER 05:54
DX: J44.1 Chronic obstructive pulmonary disease with (acute) exacerbation (principal); I10 Essential (primary) hypertension; K21.9 Gastro-esophageal reflux disease without esophagitis; G89.29 Other chronic pain; M54.9 Dorsalgia, unspecified; F17.210 Nicotine dependence, cigarettes, uncomplicated; Z90.710 Acquired absence of both cervix and uterus; Z79.2 Long term (current) use of antibiotics; Z79.82 Long term (current) use of aspirin; Z79.899 Other long term (current) drug therapy
CPT/HCPCS: A4663; J3590; J7512

== ENCOUNTER 2017-09-21 13:23 | Inpatient (IN) | payer MEDICARE, MEDICAID ==
[~2017-09-21] VITALS: Ht 167.6 cm; Wt 123.1 kg
[2017-09-21] MEDS ORDERED: MORPHINE SULFATE 2 MG/1 ML DISP.SYRIN IV ONE (14:00)
[2017-09-21] MEDS ORDERED: ONDANSETRON 4 MG/2 ML VIAL IV ONE (14:00)
[2017-09-21] MEDS ORDERED: IV NORMAL SALINE 500 ML BAG IV ONE (14:00)
[2017-09-21] MEDS ORDERED: IPRATROPIUM BROMIDE 0.5 MG/2.5 ML NEBU NEB ONE (14:00)
[2017-09-21] MEDS ORDERED: ALBUTEROL SULFATE 2.5 MG/3 ML NEBU NEB ONE (14:00)
[2017-09-21] MEDS ORDERED: ALBUTEROL SULFATE 2.5 MG/ 0.5 ML NEBU ONE (14:06)
[2017-09-21] MEDS ORDERED: IPRATROPIUM BROMIDE 0.5 MG/2.5 ML NEBU ONE (14:06)
[2017-09-21] MEDS ORDERED: ONDANSETRON 4 MG/2 ML VIAL ONE (14:10)
[2017-09-21] MEDS ORDERED: MORPHINE SULFATE 4 MG/1 ML DISP.SYRIN ONE (14:10)
[2017-09-21 14:16] LABS: BASOPHILS % (AUTO) 0.6 % (0.0-2.0); EOSINOPHILS % (AUTO) 0.3 % (0.0-7.0); HEMATOCRIT 35.3 % (31.2-41.9); HEMOGLOBIN 11.8 g/dL (10.9-14.3); LYMPHOCYTES # (AUTO) 0.6 K/uL (20.0-40.0); LYMPHOCYTES % (AUTO) 10.4 % (20.5-51.5); MEAN CORPUSCULAR HEMOGLOBIN 28.3 uug (24.7-32.8); MEAN CORPUSCULAR HGB CONC 33 g/dL (32.3-35.6); MEAN CORPUSCULAR VOLUME 84.6 fL (75.5-95.3); MONOCYTES # (AUTO) 0.1 K/uL (2.0-10.0); MONOCYTES % (AUTO) 1.4 % (0.0-11.0); NEUTROPHILS # (AUTO) 4.8 K/uL (1.8-8.9); NEUTROPHILS % (AUTO) 87.3 % (38.5-71.5); PLATELET COUNT (AUTO) 270 K/uL (179-408); RED BLOOD CELL COUNT(AUTO) 4.17 MIL/uL (3.63-4.92); WHITE BLOOD COUNT (AUTO) 5.5 K/uL (3.8-11.8)
[2017-09-21 14:25] LABS: CREATININE 0.9 mg/dL (0.6-1.3); POTASSIUM 4.2 mmol/L (3.5-5.1)
[2017-09-21 14:38] LABS: BILIRUBIN,DIRECT 0.1 mg/dL (0.0-0.2); BILIRUBIN,TOTAL 0.3 mg/dL (0.2-1.0); TOTAL PROTEIN, SERUM 7.3 g/dL (6.4-8.2)
[2017-09-21 15:57] VITALS: BP 111/54
[2017-09-21] MEDS ORDERED: Z GUARD REMEDY PASTE 57 GM TUBE TOP PRN (17:15)
[2017-09-21] MEDS ORDERED: ONDANSETRON 4 MG/2 ML VIAL IV PRN (17:15)
[2017-09-21] MEDS ORDERED: ZOLPIDEM 5 MG TABLET PO PRN (17:15)
[2017-09-21] MEDS ORDERED: ACETAMINOPHEN 325 MG TABLET PO PRN (17:15)
[2017-09-21] MEDS ORDERED: MAGNESIUM HYDROXIDE 30 ML LIQUID UDC PO PRN (17:15)
[2017-09-21] MEDS ORDERED: MORPHINE SULFATE 2 MG/1 ML DISP.SYRIN IV PRN (17:15)
[2017-09-21] MEDS: MORPHINE SULFATE 4 MG/1 ML DISP.SYRIN IV PRN ×2 (18:14→22:14)
[2017-09-21 20:04] VITALS: BP 123/69
[2017-09-21] MEDS: ALBUTEROL SULFATE 2.5 MG/ 0.5 ML NEBU NEB SCH ×2 (20:04→23:15)
[2017-09-21] MEDS: HYDROCODONE/APAP 5-325MG TABLET PO PRN (20:10)
[2017-09-21] MEDS ORDERED: DOCUSATE SODIUM 250 MG CAPSULE PO SCH (21:00)
[2017-09-21] MEDS: methylPREDNISolone SOD SUCC 40 MG/ML VIAL IV SCH (22:14)
[2017-09-22 00:08] VITALS: BP 97/47
[2017-09-22] MEDS: HYDROCODONE/APAP 5-325MG TABLET PO PRN (00:15)
[2017-09-22] MEDS: ALBUTEROL SULFATE 2.5 MG/ 0.5 ML NEBU NEB SCH ×3 (03:00→11:01)
[2017-09-22] MEDS: MORPHINE SULFATE 4 MG/1 ML DISP.SYRIN IV PRN ×2 (04:18→08:46)
[2017-09-22 04:52] VITALS: BP 100/41
[2017-09-22 06:02] LABS: BASOPHILS % (AUTO) 0.2 % (0.0-2.0); EOSINOPHILS % (AUTO) 0.1 % (0.0-7.0); HEMATOCRIT 33.6 % (31.2-41.9); HEMOGLOBIN 11.2 g/dL (10.9-14.3); LYMPHOCYTES # (AUTO) 0.6 K/uL (20.0-40.0); LYMPHOCYTES % (AUTO) 9.6 % (20.5-51.5); MEAN CORPUSCULAR HEMOGLOBIN 28.3 uug (24.7-32.8); MEAN CORPUSCULAR HGB CONC 33 g/dL (32.3-35.6); MONOCYTES # (AUTO) 0.1 K/uL (2.0-10.0); NEUTROPHILS # (AUTO) 5.2 K/uL (1.8-8.9); NEUTROPHILS % (AUTO) 88.1 % (38.5-71.5); PLATELET COUNT (AUTO) 257 K/uL (179-408); RED BLOOD CELL COUNT(AUTO) 3.95 MIL/uL (3.63-4.92); WHITE BLOOD COUNT (AUTO) 5.9 K/uL (3.8-11.8)
[2017-09-22] MEDS: methylPREDNISolone SOD SUCC 40 MG/ML VIAL IV SCH ×2 (06:03→13:17)
[2017-09-22 06:10] LABS: PHOSPHOROUS 3.9 mg/dL (2.5-4.9); POTASSIUM 4.3 mmol/L (3.5-5.1)
[2017-09-22] MEDS ORDERED: HYDROMORPHONE 2 MG/1 ML DISP.SYRIN IV PRN (10:30)
[2017-09-22 11:15] VITALS: BP 123/81
== END 2017-09-22 13:50 | disposition home or self-care (01) | DRG 190 ==
LOC: ER 13:24 → TELE 15:08
PROVIDERS: ADMIT Internal Medicine; ATTEND Internal Medicine
DX: J44.1 Chronic obstructive pulmonary disease with (acute) exacerbation (principal); J96.01 Acute respiratory failure with hypoxia; Z68.41 Body mass index [BMI] 40.0-44.9, adult; E87.1 Hypo-osmolality and hyponatremia; D63.8 Anemia in other chronic diseases classified elsewhere; E66.01 Morbid (severe) obesity due to excess calories; G43.909 Migraine, unspecified, not intractable, without status migrainosus; F17.200 Nicotine dependence, unspecified, uncomplicated; F31.9 Bipolar disorder, unspecified; F41.9 Anxiety disorder, unspecified; J30.9 Allergic rhinitis, unspecified; G89.4 Chronic pain syndrome; M19.90 Unspecified osteoarthritis, unspecified site; Z87.81 Personal history of (healed) traumatic fracture; I10 Essential (primary) hypertension; K21.9 Gastro-esophageal reflux disease without esophagitis; Z98.84 Bariatric surgery status; Z82.49 Family history of ischemic heart disease and other diseases of the circulatory system; Z79.52 Long term (current) use of systemic steroids; Z79.82 Long term (current) use of aspirin; Z90.49 Acquired absence of other specified parts of digestive tract
CPT/HCPCS: 36415; 70030-TC; 71045; 83735; 84100; 84703; 85025; 93005; 94640; 94664; A4663; J1170; J2270; J2405; J2920; J3590; J7040

== ENCOUNTER 2017-09-26 23:21 | Emergency (ER) | payer MEDICARE, MEDICAID ==
[~2017-09-26] VITALS: Ht 167.6 cm; Wt 122.5 kg
[~2017-09-26 23:21] MED LIST changes: -HYDR-3326 PO; -LEVO500T2 PO; -PRED10TA PO
--- NOTE | 2017-09-26 23:50 | NUR ---
PT C/O BACK PAIN AND REQUESTS MEDICATION REFILL. AAOX4. VSS. NO ACUTE DISTRESS NOTED.
--- NOTE | 2017-09-27 00:01 | NUR ---
DR ARIA HERRERA MD AT BEDSIDE FOR MSE.
[2017-09-27] MEDS ORDERED: HYDROMORPHONE HCL 2 MG TABLET ONE (00:13)
[2017-09-27] MEDS ORDERED: HYDROMORPHONE HCL 2 MG TABLET PO ONE (00:15)
--- NOTE | 2017-09-27 00:18 | NUR ---
Patient discharged to home in stable conditon. Written and verbal after care instructions given. Patient verbalizes understanding of instructions. Patient left ER and walks in steady gait. Pt states she has a cab that will take her home. No acute distress noted. VSS.
[2017-09-27 00:19] VITALS: BP 140/84
== END 2017-09-27 00:20 | disposition home or self-care (01) ==
LOC: ER 23:24
DX: G89.29 Other chronic pain (principal); I10 Essential (primary) hypertension; J44.9 Chronic obstructive pulmonary disease, unspecified; K21.9 Gastro-esophageal reflux disease without esophagitis; F17.210 Nicotine dependence, cigarettes, uncomplicated; Z79.82 Long term (current) use of aspirin; Z79.899 Other long term (current) drug therapy; Z79.2 Long term (current) use of antibiotics
CPT/HCPCS: 99282; A4663

== ENCOUNTER 2017-10-06 16:22 | Emergency (ER) | payer MEDICARE, MEDICAID ==
[~2017-10-06] VITALS: Ht 165.1 cm; Wt 122.5 kg
--- NOTE | 2017-10-06 16:44 | NUR ---
PT STATES TAKING NAPROSYN AND SMOKING WEED TO SUBSIDE THE PAIN CASE PREPARER AND LINER.
[2017-10-06 17:02] LABS: *BILIRUBIN,URIN NEGATIVE (NEGATIVE); *BLOOD, URINE Trace-lysed (NEGATIVE); *COLOR,URINE YELLOW (YELLOW); *KETONES,URINE NEGATIVE (NEGATIVE); *PROTEIN,URINE NEGATIVE (NEGATIVE); *UROBILINOGEN,URINE 0.2 E.U./dl (NORMAL); LEUKOCYTE ESTERASE ,URINE NEGATIVE (NEGATIVE); NITRITE, URINE NEGATIVE (NEGATIVE); UGLUCOSE NEGATIVE (NEGATIVE)
[2017-10-06 17:03] LABS: *URINE HCG, QUAL NEGATIVE (NEGATIVE)
[2017-10-06 17:09] LABS: *CLARITY,URINE HAZY (CLEAR)
[2017-10-06 17:10] LABS: BACTERIA,URINE MODERATE /HPF (NONE SEEN); SQUAMOUS EPITHELIAL CELL,UR MANY /HPF (NONE SEEN)
[2017-10-06] MEDS ORDERED: KETOROLAC TROMETHAMINE 30 MG INJ IM ONE (17:30)
[2017-10-06] MEDS ORDERED: KETOROLAC TROMETHAMINE 30 MG INJ ONE (17:37)
[2017-10-06] MEDS ORDERED: HYDROCODONE/APAP 5-325MG TABLET ONE (17:44)
[2017-10-06] MEDS ORDERED: HYDROCODONE/APAP 5-325MG TABLET PO ONE (17:45)
[2017-10-06 18:15] VITALS: BP 119/82
--- NOTE | 2017-10-06 18:16 | NUR ---
Patient discharged to home in stable conditon. Written and verbal after care instructions given. Patient verbalizes understanding of instructions. Pt left ER w/ steady gait.
== END 2017-10-06 18:16 | disposition home or self-care (01) ==
LOC: ER 16:23
DX: M16.11 Unilateral primary osteoarthritis, right hip (principal); M25.551 Pain in right hip; I10 Essential (primary) hypertension; J44.9 Chronic obstructive pulmonary disease, unspecified; K21.9 Gastro-esophageal reflux disease without esophagitis; G89.29 Other chronic pain; M54.9 Dorsalgia, unspecified; F17.210 Nicotine dependence, cigarettes, uncomplicated; Z90.49 Acquired absence of other specified parts of digestive tract; Z91.018 Allergy to other foods; Z79.82 Long term (current) use of aspirin; Z79.899 Other long term (current) drug therapy
CPT/HCPCS: 73502; 84703; A4663; J1885

== ENCOUNTER 2017-10-27 19:49 | Emergency (ER) | payer MEDICARE, MEDICAID ==
[~2017-10-27] VITALS: Ht 165.1 cm; Wt 127.0 kg
[2017-10-27] MEDS ORDERED: LOSA50TA21 PO (20:44)
[2017-10-27] MEDS ORDERED: ALBUTEROL SULFATE 2.5 MG/3 ML NEBU NEB ONE ×2 (20:45→21:45)
[2017-10-27] MEDS ORDERED: IPRATROPIUM BROMIDE 0.5 MG/2.5 ML NEBU NEB ONE (20:45)
[2017-10-27] MEDS ORDERED: IPRATROPIUM BROMIDE 0.5 MG/2.5 ML NEBU ONE (21:00)
[2017-10-27] MEDS ORDERED: ALBUTEROL SULFATE 2.5 MG/3 ML NEBU ONE ×2 (21:00→22:19)
[2017-10-27] MEDS ORDERED: predniSONE 20 MG TABLET PO ONE (21:45)
[2017-10-27] MEDS ORDERED: predniSONE 20 MG TABLET ONE (21:51)
--- NOTE | 2017-10-27 21:54 | NUR ---
PT IN BED. PT IS CALM AND COOPERATIVE. PT HAS REGULAR/UNLABORED BREATH SOUNDS. AFTER FIRST BREATHING TX AND DRINKING SEVERAL CUPS OF COFFEE PT IS NOW REQUESTING "ATIVAN AND PAIN MEDS." MADE AWARE.
--- NOTE | 2017-10-27 22:45 | NUR ---
Patient discharged to home in stable conditon. Written and verbal after care instructions given. Patient verbalizes understanding of instructions. Patient had clear lung sounds and expressed improvement in symptoms/chief complaint prior to discharge. Patient able to ambulate unassisted with steady gait. Patient left with all personal belongings.
[2017-10-27 22:55] VITALS: BP 144/100
== END 2017-10-27 22:45 | disposition home or self-care (01) ==
LOC: ER 19:52
DX: J45.901 Unspecified asthma with (acute) exacerbation (principal); G89.29 Other chronic pain; I10 Essential (primary) hypertension; K21.9 Gastro-esophageal reflux disease without esophagitis; F17.210 Nicotine dependence, cigarettes, uncomplicated; Z90.49 Acquired absence of other specified parts of digestive tract; Z91.018 Allergy to other foods; Z79.82 Long term (current) use of aspirin; Z79.899 Other long term (current) drug therapy
CPT/HCPCS: 71045; A4663; J3590; J7512

== ENCOUNTER 2017-11-22 16:00 | Emergency (ER) | payer MEDICARE, MEDICAID ==
[~2017-11-22] VITALS: Ht 167.6 cm; Wt 125.2 kg
[~2017-11-22 16:00] MED LIST changes: -LACT1CAP59 PO; +LOSA50TA21 PO
[2017-11-22] MEDS ORDERED: HYDROMORPHONE 1 MG/1 ML DISP.SYRIN IM ONE (16:30)
[2017-11-22] MEDS ORDERED: ONDANSETRON 4 MG/2 ML VIAL IM ONE (16:30)
[2017-11-22] MEDS ORDERED: ONDANSETRON 4 MG/2 ML VIAL ONE (16:32)
[2017-11-22] MEDS ORDERED: HYDROMORPHONE 2 MG/1 ML DISP.SYRIN ONE (16:32)
--- NOTE | 2017-11-22 17:15 | NUR ---
Dr Madrigal made patient aware of test results.
[2017-11-22 17:20] VITALS: BP 125/74
--- NOTE | 2017-11-22 17:21 | NUR ---
Patient discharged to home in stable conditon. Written and verbal after care instructions given. Patient verbalizes understanding of instructions. Patient with normal steady gait.
== END 2017-11-22 17:23 | disposition home or self-care (01) ==
LOC: ER 16:02
DX: G89.29 Other chronic pain (principal); Z76.0 Encounter for issue of repeat prescription; M25.561 Pain in right knee; I10 Essential (primary) hypertension; J44.9 Chronic obstructive pulmonary disease, unspecified; K21.9 Gastro-esophageal reflux disease without esophagitis; F17.210 Nicotine dependence, cigarettes, uncomplicated; Z91.018 Allergy to other foods; Z90.49 Acquired absence of other specified parts of digestive tract; Z79.82 Long term (current) use of aspirin; Z79.899 Other long term (current) drug therapy
CPT/HCPCS: 73564; 96372 ×2; 99284; A4663; J1170; J2405

== ENCOUNTER 2017-11-30 10:34 | Inpatient (IN) | payer MEDICARE, MEDICAID ==
[~2017-11-30] VITALS: Ht 167.6 cm; Wt 122.9 kg
[~2017-11-30 10:34] MED LIST changes: -CHOL200010 PO
[2017-11-30] MEDS ORDERED: IV NORMAL SALINE 500 ML BAG IV ONE (11:00)
[2017-11-30] MEDS ORDERED: methylPREDNISolone SOD SUCC 125 MG/2 ML VIAL IV ONE (11:00)
[2017-11-30] MEDS ORDERED: ALBUTEROL SULFATE 2.5 MG/3 ML NEBU NEB ONE ×3 (11:00→12:15)
[2017-11-30 11:09] LABS: BASOPHILS # (AUTO) 0.1 K/uL (0.0-8.0); BASOPHILS % (AUTO) 1.2 % (0.0-2.0); EOSINOPHILS # (AUTO) 0.6 K/uL (0.0-0.7); EOSINOPHILS % (AUTO) 11.1 % (0.0-7.0); HEMATOCRIT 35.7 % (31.2-41.9); HEMOGLOBIN 12.3 g/dL (10.9-14.3); LYMPHOCYTES # (AUTO) 1.3 K/uL (20.0-40.0); LYMPHOCYTES % (AUTO) 24.7 % (20.5-51.5); MEAN CORPUSCULAR HEMOGLOBIN 28.7 uug (24.7-32.8); MEAN CORPUSCULAR HGB CONC 34 g/dL (32.3-35.6); MEAN CORPUSCULAR VOLUME 83.5 fL (75.5-95.3); MONOCYTES # (AUTO) 0.4 K/uL (2.0-10.0); MONOCYTES % (AUTO) 7.7 % (0.0-11.0); NEUTROPHILS # (AUTO) 2.9 K/uL (1.8-8.9); NEUTROPHILS % (AUTO) 55.3 % (38.5-71.5); PLATELET COUNT (AUTO) 228 K/uL (179-408); RED BLOOD CELL COUNT(AUTO) 4.27 MIL/uL (3.63-4.92); WHITE BLOOD COUNT (AUTO) 5.2 K/uL (3.8-11.8)
[2017-11-30] MEDS ORDERED: ALBUTEROL SULFATE 2.5 MG/3 ML NEBU ONE ×2 (11:09→12:23)
[2017-11-30] MEDS ORDERED: IPRATROPIUM BROMIDE 0.5 MG/2.5 ML NEBU NEB ONE ×2 (11:15→12:15)
[2017-11-30 11:16] LABS: POTASSIUM 3.8 mmol/L (3.5-5.1)
[2017-11-30 11:29] LABS: BILIRUBIN,DIRECT 0.1 mg/dL (0.0-0.2); BILIRUBIN,TOTAL 0.3 mg/dL (0.2-1.0); TOTAL PROTEIN, SERUM 7.4 g/dL (6.4-8.2)
[2017-11-30] MEDS ORDERED: MORPHINE SULFATE 4 MG/1 ML DISP.SYRIN IV ONE ×2 (11:45→13:30)
[2017-11-30] MEDS ORDERED: MORPHINE SULFATE 4 MG/1 ML DISP.SYRIN ONE ×2 (12:00→13:42)
[2017-11-30] MEDS ORDERED: methylPREDNISolone SOD SUCC 125 MG/2 ML VIAL ONE (12:00)
[2017-11-30] MEDS ORDERED: HYDR-3326 PO (12:05)
[2017-11-30] MEDS ORDERED: ONDANSETRON 4 MG/2 ML VIAL ONE ×2 (12:09→13:42)
--- NOTE | 2017-11-30 12:11 | NUR ---
l;abs/ekg/meds/iv/cxr/resp tx completed. pt positioned for comfort.
[2017-11-30] MEDS ORDERED: ONDANSETRON IV *ER 4 MG/2 ML VIAL IV ONE ×2 (12:15→13:30)
[2017-11-30] MEDS ORDERED: IPRATROPIUM BROMIDE 0.5 MG/2.5 ML NEBU ONE (12:24)
--- NOTE | 2017-11-30 13:00 | NUR ---
dr khalil spoke to kim chandra md, kim chandra to evaluate pt in er.
--- NOTE | 2017-11-30 14:12 | NUR ---
RECEIVED PT VIA [employer] BUT NOTED SHE WAS ABLE TO GET OUT OF THE GURNEY ON HER OWN, SHE WALKED INTO THE ROOM AND WALKED DOWN THE HALLWAY TO GET COFFEE. PT IS ABLE TO VERBALIZED HER NEEDS. DRINKING COFFEE EVEN IF SHE KNOWS IT IS NOT RECOMMENDED FOR HER BECAUSE OF THE COPD EXACERBATION
[2017-11-30 14:30] VITALS: BP 106/66
[2017-11-30] MEDS ORDERED: ONDANSETRON 4 MG/2 ML VIAL IV PRN (17:00)
[2017-11-30] MEDS ORDERED: Z GUARD REMEDY PASTE 57 GM TUBE TOP PRN (17:00)
[2017-11-30] MEDS ORDERED: MAGNESIUM HYDROXIDE 30 ML LIQUID UDC PO PRN (17:00)
[2017-11-30] MEDS ORDERED: ACETAMINOPHEN 325 MG TABLET PO PRN (17:00)
[2017-11-30] MEDS ORDERED: ZOLPIDEM 5 MG TABLET PO PRN (17:00)
[2017-11-30] MEDS ORDERED: HYDROCODONE/APAP 10-325 MG TABLET PO PRN (17:00)
[2017-11-30] MEDS: CARBAMAZEPINE 200 MG TABLET PO SCH (18:15)
[2017-11-30] MEDS: GABAPENTIN 300 MG CAPSULE PO SCH (18:15)
[2017-11-30] MEDS: CLONAZEPAM 1 MG TABLET PO SCH (18:15)
[2017-11-30] MEDS: ALBUTEROL SULFATE 2.5 MG/ 0.5 ML NEBU NEB PRN (19:23)
[2017-11-30] MEDS: IPRATROPIUM BROMIDE 0.5 MG/2.5 ML NEBU NEB PRN (19:23)
--- NOTE | 2017-11-30 19:25 | NUR ---
Pt stated she was short of breath, RT called. Pt is able to communicate needs. No immediate s/s of distress. AO times 4
[2017-11-30 20:00] VITALS: BP 128/73
[2017-11-30] MEDS ORDERED: ENOXAPARIN SODIUM 40 MG/0.4 ML DISP.SYRIN SQ SCH (21:00)
[2017-11-30] MEDS: methylPREDNISolone SOD SUCC 125 MG/2 ML VIAL IV SCH (21:14)
[2017-11-30] MEDS: ACETAMINOPHEN/CODEINE 300-60 MG TABLET PO PRN (21:15)
[2017-11-30 21:39] LABS: *BILIRUBIN,URIN NEGATIVE (NEGATIVE); *BLOOD, URINE 2+ (NEGATIVE); *CLARITY,URINE CLEAR (CLEAR); *COLOR,URINE YELLOW (YELLOW); *KETONES,URINE NEGATIVE (NEGATIVE); *PROTEIN,URINE NEGATIVE (NEGATIVE); *UROBILINOGEN,URINE 0.2 E.U./dl (NORMAL); LEUKOCYTE ESTERASE ,URINE NEGATIVE (NEGATIVE); NITRITE, URINE NEGATIVE (NEGATIVE); UGLUCOSE NEGATIVE (NEGATIVE)
[2017-11-30 21:45] LABS: SQUAMOUS EPITHELIAL CELL,UR FEW /HPF (NONE SEEN); WBC,URINE 0-3 /HPF (0-3)
[2017-11-30] MEDS: GUAIFENESIN/DEXTROMETHORPHAN 5 ML UDC PO PRN (21:52)
--- NOTE | 2017-11-30 22:27 | NUR ---
PATIENT WAS GIVEN ZOFRAN DOSE FOR NAUSEA BUT STILL NAUSEA NOTED,
--- NOTE | 2017-11-30 22:29 | NUR ---
PATIENT STILL WITH PAIN TO THE HEAD AND NOT RELIEVED WITH TYLENOL # 4,STILL NAUSEATED AND MINIMAL VOMITING.
[2017-11-30 22:35] VITALS: BP 148/94
--- NOTE | 2017-12-01 00:55 | NUR ---
PATIENT CLAIMS SHE IS STILL IN PAIN IN THE HEAD AND NECK AND IS THROBBING. INFORMED THAT THE MEDICATION IS NOT YET DUEEXPRESSED UNDERSTANDING/ AMBIEN DOSE FOR SLEEP GIVEN.
[2017-12-01 00:57] VITALS: BP 140/93
--- NOTE | 2017-12-01 02:41 | NUR ---
DR NICOLE CALLED BACK I=INFORMED ABOUT THE PATIENT COMPLAINTS OF HEADACHE WHICH SHE CLAIMS IN NOT RELIEVED WITH TYLENOL # 4 DOSE AND STILL PERSISTENT VOMITING. NA 129 AND URINALYSIS REPORT RELAYED TO HER,WITH ORDERS AND CARRIED OUT
[2017-12-01] MEDS ORDERED: METOCLOPRAMIDE HCL 10 MG/2 ML VIAL IV PRN (02:45)
[2017-12-01] MEDS ORDERED: MORPHINE SULFATE 2 MG/1 ML DISP.SYRIN IV PRN (02:45)
--- NOTE | 2017-12-01 03:06 | NUR ---
PATIENT SLEPT THEREAFTER AND NO MEDICATIONS GIVEN. WILL CONTINUE TO MONITOR
[2017-12-01] MEDS: GUAIFENESIN/DEXTROMETHORPHAN 5 ML UDC PO PRN (03:22)
--- NOTE | 2017-12-01 03:41 | NUR ---
AMBULATED TO THE BATHROOM WITH MINIMAL ASSIST, CLEANED AND KEPT DRY. VOIDED FREELY.ASSISTED BACK TO BED.REGLAN DOSE GIVEN FOR PERSISTENT VOMITING. SLEPT THEREAFTER.
[2017-12-01] MEDS: MORPHINE SULFATE 4 MG/1 ML DISP.SYRIN IV PRN ×2 (05:18→15:09)
[2017-12-01 05:21] VITALS: BP 107/50
[2017-12-01] MEDS: methylPREDNISolone SOD SUCC 125 MG/2 ML VIAL IV SCH ×2 (05:22→13:15)
[2017-12-01 06:46] LABS: BASOPHILS % (AUTO) 0.1 % (0.0-2.0); HEMATOCRIT 35.3 % (31.2-41.9); HEMOGLOBIN 11.9 g/dL (10.9-14.3); LYMPHOCYTES # (AUTO) 0.6 K/uL (20.0-40.0); LYMPHOCYTES % (AUTO) 10.1 % (20.5-51.5); MEAN CORPUSCULAR HEMOGLOBIN 28.4 uug (24.7-32.8); MEAN CORPUSCULAR HGB CONC 34 g/dL (32.3-35.6); MONOCYTES # (AUTO) 0.1 K/uL (2.0-10.0); MONOCYTES % (AUTO) 2.5 % (0.0-11.0); NEUTROPHILS # (AUTO) 5.3 K/uL (1.8-8.9); NEUTROPHILS % (AUTO) 87.3 % (38.5-71.5); PLATELET COUNT (AUTO) 211 K/uL (179-408); WHITE BLOOD COUNT (AUTO) 6.1 K/uL (3.8-11.8)
[2017-12-01 07:00] LABS: THYROID STIMULATING HORMONE 0.438 mIU/mL (0.358-3.740)
--- NOTE | 2017-12-01 07:31 | NUR ---
PATIENT RESTING COMFORTABLY IN BED AT THIS TIME. WILL MONITOR FOR N/V AND PROVIDE MANAGEMENT. STABLE AT THIS TIME. ON O2 2L NC. NO SIGNS OF RESPIRATORY DISTRESS. WILL CONTINUE TO MONITOR THROUGHOUT SHIFT.
[2017-12-01 07:34] LABS: BILIRUBIN,TOTAL 0.2 mg/dL (0.2-1.0); CREATININE 0.8 mg/dL (0.6-1.3); MAGNESIUM 1.8 mg/dL (1.8-2.4); PHOSPHOROUS 3.7 mg/dL (2.5-4.9); POTASSIUM 3.6 mmol/L (3.5-5.1); TOTAL PROTEIN, SERUM 7.2 g/dL (6.4-8.2)
[2017-12-01] MEDS: CLONAZEPAM 1 MG TABLET PO SCH ×2 (08:56→16:09)
[2017-12-01] MEDS: CARBAMAZEPINE 200 MG TABLET PO SCH ×2 (08:56→16:09)
[2017-12-01] MEDS: GABAPENTIN 300 MG CAPSULE PO SCH ×3 (08:56→16:09)
[2017-12-01] MEDS ORDERED: HYDROCHLOROTHIAZIDE 25 MG TABLET PO SCH (09:00)
[2017-12-01] MEDS ORDERED: ESCITALOPRAM OXALATE 10 MG TABLET PO SCH (09:00)
[2017-12-01] MEDS ORDERED: LOSARTAN POTASSIUM 50 MG TABLET PO SCH (09:00)
[2017-12-01] MEDS ORDERED: ASPIRIN 81 MG TAB.CHEW PO SCH (09:00)
[2017-12-01] MEDS: ACETAMINOPHEN/CODEINE 300-60 MG TABLET PO PRN (11:04)
[2017-12-01 11:52] VITALS: BP 103/59
[2017-12-01] MEDS: IPRATROPIUM BROMIDE 0.5 MG/2.5 ML NEBU NEB PRN (12:29)
[2017-12-01] MEDS: ALBUTEROL SULFATE 2.5 MG/ 0.5 ML NEBU NEB PRN ×2 (12:29→16:58)
[2017-12-01 15:52] VITALS: BP 114/70
--- NOTE | 2017-12-01 17:45 | NUR ---
PATIENT DISCHARGED AT THIS TIME IN STABLE CONDITION, NO S/S OF DISTRESS. DISCHARGE PACKET COMPLETED, SIGNED BY PATIENT. IV-ACCESS DISCONNECTED, ID BAND TAKEN OFF. PATIENT EXITED HOSPITAL PREMISES SAFELY.
[2017-12-01] MEDS ORDERED: FLUT16SP BNOSTRILS (18:13)
[2017-12-01] MEDS ORDERED: CARB200T PO (18:13)
[2017-12-01] MEDS ORDERED: FLUT1DIS28 INH (18:13)
[2017-12-01] MEDS ORDERED: PRED20TA PO (18:13)
[2017-12-01] MEDS ORDERED: ACET1TAB14 PO (18:13)
== END 2017-12-01 18:15 | disposition home or self-care (01) | DRG 191 ==
LOC: ER 10:34 → MED 14:03
PROVIDERS: ADMIT Nurse Practitioner Acute Care; ATTEND Nurse Practitioner Acute Care
DX: J44.1 Chronic obstructive pulmonary disease with (acute) exacerbation (principal); Z68.41 Body mass index [BMI] 40.0-44.9, adult; E87.1 Hypo-osmolality and hyponatremia; E66.01 Morbid (severe) obesity due to excess calories; Z71.3 Dietary counseling and surveillance; Z98.84 Bariatric surgery status; G89.4 Chronic pain syndrome; Z90.49 Acquired absence of other specified parts of digestive tract; F17.210 Nicotine dependence, cigarettes, uncomplicated; Z79.82 Long term (current) use of aspirin; K21.9 Gastro-esophageal reflux disease without esophagitis; K25.9 Gastric ulcer, unspecified as acute or chronic, without hemorrhage or perforation; F31.9 Bipolar disorder, unspecified; G43.909 Migraine, unspecified, not intractable, without status migrainosus; I10 Essential (primary) hypertension; M54.2 Cervicalgia; M54.9 Dorsalgia, unspecified; T50.2X5A Adverse effect of carbonic-anhydrase inhibitors, benzothiadiazides and other diuretics, initial encounter; Y92.009 Unspecified place in unspecified non-institutional (private) residence as the place of occurrence of the external cause
CPT/HCPCS: 36415; 70030-TC; 71045; 83605; 83735; 84100; 84300; 84443; 84703; 85025; 87040; 93005; 94640; 94664; A4663; J1650; J2270; J2405; J2765; J2930; J3590; J7040

== ENCOUNTER 2017-12-05 23:54 | Emergency (ER) | payer MEDICARE, MEDICAID ==
[~2017-12-05] VITALS: Ht 167.6 cm; Wt 125.2 kg
[~2017-12-05 23:54] MED LIST changes: +ACET1TAB14 PO; +FLUT16SP BNOSTRILS; +FLUT1DIS28 INH; +HYDR-3326 PO; -HYDR25TA4 PO; +PRED20TA PO
[2017-12-06] MEDS ORDERED: ONDANSETRON ODT 4 MG TAB.RAPDIS SL ONE (00:30)
[2017-12-06] MEDS ORDERED: MORPHINE SULFATE 4 MG/1 ML DISP.SYRIN IM ONE (00:30)
[2017-12-06] MEDS ORDERED: ONDANSETRON ODT 4 MG TAB.RAPDIS ONE (00:30)
[2017-12-06] MEDS ORDERED: MORPHINE SULFATE 4 MG/1 ML DISP.SYRIN ONE (00:31)
--- NOTE | 2017-12-06 01:01 | NUR ---
Patient discharged to home in stable conditon. Written and verbal after care instructions given. Patient verbalizes understanding of instructions. Pt left ER in steady gait and has who will drive her home. All belongings with pt. VSS. No acute distress noted.
[2017-12-06 01:02] VITALS: BP 114/81
== END 2017-12-06 01:03 | disposition home or self-care (01) ==
LOC: ER 12-06
DX: M25.50 Pain in unspecified joint (principal); G89.29 Other chronic pain; I10 Essential (primary) hypertension; J44.9 Chronic obstructive pulmonary disease, unspecified; K21.9 Gastro-esophageal reflux disease without esophagitis; Z90.49 Acquired absence of other specified parts of digestive tract; Z91.018 Allergy to other foods; Z79.51 Long term (current) use of inhaled steroids; Z79.899 Other long term (current) drug therapy
CPT/HCPCS: 96372; 99283; A4663; J2270; Q0162

== ENCOUNTER 2017-12-09 08:49 | Emergency (ER) | payer MEDICARE, MEDICAID ==
[~2017-12-09] VITALS: Ht 167.6 cm; Wt 124.7 kg
--- NOTE | 2017-12-09 09:20 | NUR ---
PATIENT WAS SEEN BY DR ROBBINS FOR MULTIPLE COMPLAINTS. SHE IS AWAKE, ALERT, ORIENTED X4. SHE IS AMBULATORY WITH STEADY GAIT. SHE ASKED ME FOR A "PAIN SHOT"... I NOTIFIED DR ROBBINS OF HER REQUEST. PATIENT STATED SHE DOES NOT WANT ADVIL OR TORADOL. DR ROBBINS AWARE.
[2017-12-09] MEDS ORDERED: HYDROCODONE/APAP 5-325MG TABLET PO ONE (09:30)
[2017-12-09] MEDS ORDERED: HYDROCODONE/APAP 5-325MG TABLET ONE (09:34)
[2017-12-09 09:56] LABS: POTASSIUM 3.5 mmol/L (3.5-5.1)
[2017-12-09 09:58] LABS: BASOPHILS % (AUTO) 0.7 % (0.0-2.0); EOSINOPHILS # (AUTO) 0.2 K/uL (0.0-0.7); EOSINOPHILS % (AUTO) 4.5 % (0.0-7.0); HEMATOCRIT 31.8 % (31.2-41.9); HEMOGLOBIN 10.7 g/dL (10.9-14.3); LYMPHOCYTES # (AUTO) 1.1 K/uL (20.0-40.0); LYMPHOCYTES % (AUTO) 22.9 % (20.5-51.5); MEAN CORPUSCULAR HEMOGLOBIN 28.6 uug (24.7-32.8); MEAN CORPUSCULAR HGB CONC 34 g/dL (32.3-35.6); MEAN CORPUSCULAR VOLUME 85.1 fL (75.5-95.3); MONOCYTES # (AUTO) 0.5 K/uL (2.0-10.0); MONOCYTES % (AUTO) 9.3 % (0.0-11.0); NEUTROPHILS # (AUTO) 3.1 K/uL (1.8-8.9); NEUTROPHILS % (AUTO) 62.6 % (38.5-71.5); PLATELET COUNT (AUTO) 208 K/uL (179-408); RED BLOOD CELL COUNT(AUTO) 3.73 MIL/uL (3.63-4.92); WHITE BLOOD COUNT (AUTO) 4.9 K/uL (3.8-11.8)
--- NOTE | 2017-12-09 10:02 | NUR ---
PATIENT IS SLEEPING BUT AROUSES TO SLIGHT NOISE.
[2017-12-09 10:03] LABS: *BILIRUBIN,URIN NEGATIVE (NEGATIVE); *BLOOD, URINE NEGATIVE (NEGATIVE); *CLARITY,URINE CLEAR (CLEAR); *COLOR,URINE YELLOW (YELLOW); *KETONES,URINE NEGATIVE (NEGATIVE); *PROTEIN,URINE NEGATIVE (NEGATIVE); *UROBILINOGEN,URINE 0.2 E.U./dl (NORMAL); LEUKOCYTE ESTERASE ,URINE TRACE (NEGATIVE); NITRITE, URINE NEGATIVE (NEGATIVE); PH,URINE 6.5 (5.0-8.0); UGLUCOSE NEGATIVE (NEGATIVE)
[2017-12-09 10:05] LABS: *URINE HCG, QUAL NEGATIVE (NEGATIVE)
[2017-12-09 10:20] LABS: BACTERIA,URINE FEW /HPF (NONE SEEN)
[2017-12-09 10:21] LABS: SQUAMOUS EPITHELIAL CELL,UR MANY /HPF (NONE SEEN)
--- NOTE | 2017-12-09 11:12 | NUR ---
PATIENT STATGES PAIN HAS DIMINISHED SOME. DC AND F/U INSTRUCTIONS GIVEN AND EXPLAINED TO PATIENT WHO STATES SHE UNDERSTANDS ALL INSTRUCTIONS.
== END 2017-12-09 11:14 | disposition home or self-care (01) ==
LOC: ER 08:52
DX: J44.9 Chronic obstructive pulmonary disease, unspecified (principal); K21.9 Gastro-esophageal reflux disease without esophagitis; F17.200 Nicotine dependence, unspecified, uncomplicated; Z90.49 Acquired absence of other specified parts of digestive tract; Z91.018 Allergy to other foods; Z79.51 Long term (current) use of inhaled steroids; Z79.899 Other long term (current) drug therapy
CPT/HCPCS: 36415; 84703; 85025; A4663

== ENCOUNTER 2017-12-10 10:09 | Emergency (ER) | payer MEDICARE, MEDICAID ==
[~2017-12-10] VITALS: Ht 167.6 cm; Wt 99.8 kg
[2017-12-10] MEDS ORDERED: OXYCODONE/APAP 5-325 MG TABLET PO ONE (11:30)
--- NOTE | 2017-12-10 11:39 | NUR ---
PATIENT WAS SEEN BY DR JOHN FOR C/O PAIN AND LEG EDEMA. PATIENT STATES JENNIFER WAS HERE YESTERDAY BUT DID NOT GE THE PAIN MEDICINE SHE WANTED.
--- NOTE | 2017-12-10 11:41 | NUR ---
DC, RX (INCLUDING PRECAUTIONS) AND FOLLOW UP INSTRUCTIONS GIVEN AND EXPLAINED TO PATIENT WHO STATES SHE UNDERSTANDS ALL INSTRUCTIONS.
[2017-12-10] MEDS ORDERED: OXYCODONE/APAP 5-325 MG TABLET ONE (11:42)
== END 2017-12-10 11:42 | disposition home or self-care (01) ==
LOC: ER 10:09
DX: Z76.0 Encounter for issue of repeat prescription (principal); G89.29 Other chronic pain; M54.5 Low back pain; M25.561 Pain in right knee; M25.562 Pain in left knee; I10 Essential (primary) hypertension; J44.9 Chronic obstructive pulmonary disease, unspecified; K21.9 Gastro-esophageal reflux disease without esophagitis; Z90.49 Acquired absence of other specified parts of digestive tract; Z91.018 Allergy to other foods; Z79.82 Long term (current) use of aspirin; Z79.51 Long term (current) use of inhaled steroids; Z79.899 Other long term (current) drug therapy
CPT/HCPCS: 99283; A4663

== ENCOUNTER 2017-12-13 12:00 | Emergency (ER) | payer MEDICARE, MEDICAID ==
[~2017-12-13] VITALS: Ht 167.6 cm; Wt 122.5 kg
[2017-12-13] MEDS ORDERED: FUROSEMIDE 20 MG TABLET PO ONE (12:30)
[2017-12-13] MEDS ORDERED: ONDANSETRON 4 MG/2 ML VIAL IM ONE (12:30)
[2017-12-13] MEDS ORDERED: MORPHINE SULFATE 4 MG/1 ML DISP.SYRIN IM ONE (12:30)
[2017-12-13] MEDS ORDERED: FUROSEMIDE 20 MG TABLET ONE (12:37)
[2017-12-13] MEDS ORDERED: ONDANSETRON 4 MG/2 ML VIAL ONE (12:37)
[2017-12-13] MEDS ORDERED: MORPHINE SULFATE 4 MG/1 ML DISP.SYRIN ONE (12:37)
--- NOTE | 2017-12-13 12:45 | NUR ---
meds administered, pt d/c'd ghome, aci/rx x1 given. pt ambulatedf w/o diff/took all belongings.
[2017-12-13 12:48] VITALS: BP 145/88
== END 2017-12-13 12:45 | disposition home or self-care (01) ==
LOC: ER 12:00
DX: G89.29 Other chronic pain (principal); R60.9 Edema, unspecified; I10 Essential (primary) hypertension; J44.9 Chronic obstructive pulmonary disease, unspecified; K21.9 Gastro-esophageal reflux disease without esophagitis; Z90.49 Acquired absence of other specified parts of digestive tract; Z91.018 Allergy to other foods; Z79.51 Long term (current) use of inhaled steroids; Z79.891 Long term (current) use of opiate analgesic; Z79.899 Other long term (current) drug therapy
CPT/HCPCS: A4663; J2270; J2405

== ENCOUNTER 2018-04-25 14:13 | Emergency (ER) | payer MEDICARE, MEDICAID ==
[~2018-04-25] VITALS: Ht 167.6 cm; Wt 99.8 kg
[2018-04-25] MEDS ORDERED: CARB200T PO (14:29)
[2018-04-25] MEDS ORDERED: SULFAMETHOXAZOLE-TMP DS TABLET (14:29)
[2018-04-25 15:00] LABS: *BILIRUBIN,URIN NEGATIVE (NEGATIVE); *BLOOD, URINE Trace-intact (NEGATIVE); *CLARITY,URINE CLEAR (CLEAR); *COLOR,URINE YELLOW (YELLOW); *KETONES,URINE NEGATIVE (NEGATIVE); *PROTEIN,URINE NEGATIVE (NEGATIVE); *UROBILINOGEN,URINE 0.2 E.U./dl (NORMAL); LEUKOCYTE ESTERASE ,URINE NEGATIVE (NEGATIVE); NITRITE, URINE NEGATIVE (NEGATIVE); UGLUCOSE NEGATIVE (NEGATIVE)
--- NOTE | 2018-04-25 15:00 | NUR ---
PT IS IN ROOM #1B. DR HORAN EVALUATED THE PT.
[2018-04-25 15:01] LABS: *URINE HCG, QUAL NEGATIVE (NEGATIVE)
[2018-04-25 15:10] LABS: SQUAMOUS EPITHELIAL CELL,UR MODERATE /HPF (NONE SEEN); WBC,URINE 0-3 /HPF (0-3)
[2018-04-25 15:13] LABS: BASOPHILS % (AUTO) 0.9 % (0.0-2.0); EOSINOPHILS # (AUTO) 0.2 K/uL (0.0-0.7); EOSINOPHILS % (AUTO) 4.9 % (0.0-7.0); HEMATOCRIT 35.4 % (31.2-41.9); LYMPHOCYTES # (AUTO) 1.2 K/uL (20.0-40.0); LYMPHOCYTES % (AUTO) 26.6 % (20.5-51.5); MEAN CORPUSCULAR HEMOGLOBIN 30.2 uug (24.7-32.8); MEAN CORPUSCULAR HGB CONC 34 g/dL (32.3-35.6); MEAN CORPUSCULAR VOLUME 89.2 fL (75.5-95.3); MONOCYTES # (AUTO) 0.3 K/uL (2.0-10.0); MONOCYTES % (AUTO) 6.8 % (0.0-11.0); NEUTROPHILS # (AUTO) 2.8 K/uL (1.8-8.9); NEUTROPHILS % (AUTO) 60.8 % (38.5-71.5); PLATELET COUNT (AUTO) 209 K/uL (179-408); RED BLOOD CELL COUNT(AUTO) 3.97 MIL/uL (3.63-4.92); WHITE BLOOD COUNT (AUTO) 4.7 K/uL (3.8-11.8)
[2018-04-25] MEDS ORDERED: HYDROCODONE/APAP 10-325 MG TABLET ONE (15:14)
[2018-04-25] MEDS ORDERED: ONDANSETRON ODT 4 MG TAB.RAPDIS ONE (15:14)
[2018-04-25] MEDS: HYDROCODONE/APAP 10-325 MG TABLET PO ONE ×2 (15:15→15:22)
[2018-04-25] MEDS ORDERED: ONDANSETRON ODT 4 MG TAB.RAPDIS SL ONE (15:15)
[2018-04-25 15:20] LABS: BILIRUBIN,DIRECT 0.1 mg/dL (0.0-0.2); BILIRUBIN,TOTAL 0.2 mg/dL (0.2-1.0)
[2018-04-25] MEDS ORDERED: HYDROMORPHONE 2 MG/1 ML DISP.SYRIN ONE (15:26)
[2018-04-25] MEDS ORDERED: HYDROMORPHONE 1 MG/1 ML DISP.SYRIN IM ONE (15:30)
--- NOTE | 2018-04-25 16:12 | NUR ---
PT WAS D/C'd TO HOME. D/C INSTRUCTIONS GIVEN TO THE PT.
[2018-04-25 16:13] VITALS: BP 135/88
== END 2018-04-25 16:14 | disposition home or self-care (01) ==
LOC: ER 14:13
DX: G89.29 Other chronic pain (principal); M54.9 Dorsalgia, unspecified; M54.2 Cervicalgia; I10 Essential (primary) hypertension; J44.9 Chronic obstructive pulmonary disease, unspecified; K21.9 Gastro-esophageal reflux disease without esophagitis; F17.200 Nicotine dependence, unspecified, uncomplicated; Z91.018 Allergy to other foods; Z90.49 Acquired absence of other specified parts of digestive tract; Z79.51 Long term (current) use of inhaled steroids; Z79.82 Long term (current) use of aspirin; Z79.891 Long term (current) use of opiate analgesic; Z79.899 Other long term (current) drug therapy
CPT/HCPCS: 36415; 71045; 80048; 80076; 80156; 81001; 83690; 84484; 84703; 85025; 87086; 93005; 96372; 99284; J1170; 70030-TC; A4663; Q0162

== ENCOUNTER 2018-06-19 14:47 | Emergency (ER) | payer MEDICARE, MEDICAID ==
[~2018-06-19] VITALS: Ht 167.6 cm; Wt 105.7 kg
[~2018-06-19 14:47] MED LIST changes: -ASPI81TA31 PO; -LOSA50TA21 PO; +LOSA50TA39 PO; -PRED20TA PO; +SULFAMETHOXAZOLE-TMP DS TABLET
--- NOTE | 2018-06-19 15:22 | NUR ---
DR ROBBINS AT THE BEDSIDE FOR MSE.
--- NOTE | 2018-06-19 15:41 | NUR ---
Patient discharged to home in stable conditon. Written and verbal after care instructions given. Patient verbalizes understanding of instructions.
[2018-06-19 15:43] VITALS: BP 152/91
[2018-08-30] MEDS ORDERED: ALBU8.5H8 INH (11:15)
[2018-08-30] MEDS ORDERED: METH4TAB3 PO (11:15)
[2018-08-30] MEDS ORDERED: CEPH500C2 PO (11:15)
== END 2018-06-19 15:44 | disposition home or self-care (01) ==
LOC: ER 14:47
DX: F32.9 Major depressive disorder, single episode, unspecified (principal); I10 Essential (primary) hypertension; J44.9 Chronic obstructive pulmonary disease, unspecified; K21.9 Gastro-esophageal reflux disease without esophagitis; G89.29 Other chronic pain; M54.9 Dorsalgia, unspecified; F17.200 Nicotine dependence, unspecified, uncomplicated; Z90.49 Acquired absence of other specified parts of digestive tract; Z91.018 Allergy to other foods; Z79.51 Long term (current) use of inhaled steroids; Z79.899 Other long term (current) drug therapy
CPT/HCPCS: A4663

== ENCOUNTER 2018-07-22 17:21 | Emergency (ER) | payer MEDICARE, MEDICAID ==
[~2018-07-22] VITALS: Ht 167.6 cm; Wt 105.7 kg
--- NOTE | 2018-07-22 18:01 | NUR ---
PT IS IN ROOM #2B. DR GOLDSTEIN EVALUATED THE PT.
[2018-07-22 18:04] LABS: BASOPHILS % (AUTO) 0.9 % (0.0-2.0); EOSINOPHILS # (AUTO) 0.2 K/uL (0.0-0.7); EOSINOPHILS % (AUTO) 4.9 % (0.0-7.0); HEMATOCRIT 34.3 % (31.2-41.9); HEMOGLOBIN 11.4 g/dL (10.9-14.3); LYMPHOCYTES # (AUTO) 1.2 K/uL (20.0-40.0); LYMPHOCYTES % (AUTO) 28.8 % (20.5-51.5); MEAN CORPUSCULAR HEMOGLOBIN 29.8 uug (24.7-32.8); MEAN CORPUSCULAR HGB CONC 33 g/dL (32.3-35.6); MEAN CORPUSCULAR VOLUME 89.8 fL (75.5-95.3); MONOCYTES # (AUTO) 0.3 K/uL (2.0-10.0); MONOCYTES % (AUTO) 7.6 % (0.0-11.0); NEUTROPHILS # (AUTO) 2.3 K/uL (1.8-8.9); NEUTROPHILS % (AUTO) 57.8 % (38.5-71.5); PLATELET COUNT (AUTO) 226 K/uL (179-408); RED BLOOD CELL COUNT(AUTO) 3.82 MIL/uL (3.63-4.92)
[2018-07-22] MEDS ORDERED: OXYCODONE/APAP 5-325 MG TABLET PO ONE (18:30)
[2018-07-22 18:34] LABS: CREATININE 0.8 mg/dL (0.6-1.3); POTASSIUM 4.4 mmol/L (3.5-5.1)
[2018-07-22] MEDS ORDERED: OXYCODONE/APAP 5-325 MG TABLET ONE (18:50)
--- NOTE | 2018-07-22 19:12 | NUR ---
PT WAS D/C'd TO HOME. D/C INSTRUCTIONS GIVEN TO THE PT BY DR GOLDSTEIN.
[2018-07-22 19:13] VITALS: BP 139/88
[2018-08-30] MEDS ORDERED: ALBU8.5H8 INH (11:15)
[2018-08-30] MEDS ORDERED: METH4TAB3 PO (11:15)
[2018-08-30] MEDS ORDERED: CEPH500C2 PO (11:15)
== END 2018-07-22 19:13 | disposition home or self-care (01) ==
LOC: ER 17:22
DX: R42 Dizziness and giddiness (principal); R06.02 Shortness of breath; F41.9 Anxiety disorder, unspecified; I10 Essential (primary) hypertension; J44.9 Chronic obstructive pulmonary disease, unspecified; K21.9 Gastro-esophageal reflux disease without esophagitis; G89.29 Other chronic pain; M54.9 Dorsalgia, unspecified; M54.2 Cervicalgia; F17.200 Nicotine dependence, unspecified, uncomplicated; Z91.018 Allergy to other foods; Z90.49 Acquired absence of other specified parts of digestive tract; Z79.891 Long term (current) use of opiate analgesic; Z79.51 Long term (current) use of inhaled steroids; Z79.899 Other long term (current) drug therapy
CPT/HCPCS: 36415; 70030-TC; 71045; 85025; 93005; A4663

== ENCOUNTER 2018-07-28 00:48 | Emergency (ER) | payer MEDICARE, MEDICAID ==
[~2018-07-28] VITALS: Ht 157.5 cm; Wt 120.2 kg
--- NOTE | 2018-07-28 01:07 | NUR ---
Pt ambulated to ER w c/o shortness of breath since 1600 yesterday. SA02 100% room air. No acute distress noted. Denies N/V/D. Denies chest pain. Will continue to monitor.
--- NOTE | 2018-07-28 01:09 | NUR ---
Dr. Rohan HERRERA MD at bedside to evaluate pt.
[2018-07-28] MEDS ORDERED: ALBUTEROL SULFATE 2.5 MG/3 ML NEBU NEB ONE (01:15)
[2018-07-28] MEDS ORDERED: IPRATROPIUM BROMIDE 0.5 MG/2.5 ML NEBU NEB ONE (01:15)
[2018-07-28] MEDS ORDERED: ALBUTEROL SULFATE 2.5 MG/3 ML NEBU ONE (01:20)
[2018-07-28] MEDS ORDERED: IPRATROPIUM BROMIDE 0.5 MG/2.5 ML NEBU ONE (01:21)
[2018-07-28] MEDS ORDERED: ONDANSETRON 4 MG/2 ML VIAL ONE (01:44)
[2018-07-28] MEDS ORDERED: HYDROMORPHONE 2 MG/1 ML DISP.SYRIN ONE (01:44)
[2018-07-28] MEDS ORDERED: ONDANSETRON 4 MG/2 ML VIAL IM ONE (01:45)
[2018-07-28] MEDS ORDERED: HYDROMORPHONE 1 MG/1 ML DISP.SYRIN IM ONE (01:45)
--- NOTE | 2018-07-28 02:00 | NUR ---
Patient discharged to home in stable conditon. Written and verbal after care instructions given. Patient verbalizes understanding of instructions. Pt is going home via [employer] transportation. Pt states she feels better after breathing tx. All belongings w pt. NAD noted. VSS.
[2018-07-28 02:01] VITALS: BP 132/78
[2018-08-30] MEDS ORDERED: METH4TAB3 PO (11:15)
[2018-08-30] MEDS ORDERED: CEPH500C2 PO (11:15)
[2018-08-30] MEDS ORDERED: ALBU8.5H8 INH (11:15)
== END 2018-07-28 02:01 | disposition home or self-care (01) ==
LOC: ER 00:49
DX: J98.01 Acute bronchospasm (principal); R07.89 Other chest pain; I10 Essential (primary) hypertension; J44.9 Chronic obstructive pulmonary disease, unspecified; K21.9 Gastro-esophageal reflux disease without esophagitis; G89.29 Other chronic pain; M54.9 Dorsalgia, unspecified; M54.2 Cervicalgia; Z91.018 Allergy to other foods; F17.200 Nicotine dependence, unspecified, uncomplicated; Z79.51 Long term (current) use of inhaled steroids; Z79.899 Other long term (current) drug therapy
CPT/HCPCS: 71045; 94640; 96372 ×2; 99283; J1170; J2405; A4663; J3590

== ENCOUNTER 2018-08-12 18:31 | Emergency (ER) | payer MEDICARE, MEDICAID ==
[~2018-08-12] VITALS: Ht 157.5 cm; Wt 120.2 kg
--- NOTE | 2018-08-12 18:37 | NUR ---
PT A/OX4, BIB RA100, C/O "LOW BP" AND L RIB PAIN ON INHALATION. VSS. PT DOES NOT APPEAR TO BE IN ANY APPARENT DISTRESS AT THIS TIME. PT REPORTS HX OF COPD AND STATES "I WANT TO BE CURED FROM THIS COPD". PT DENIES C/P, SOB, N/V/D, DIZZINESS, HEADACHE.
--- NOTE | 2018-08-12 19:36 | NUR ---
SHARON OLIVEIRA AT BEDSIDE FOR MSE.
[2018-08-12 19:54] LABS: BASOPHILS # (AUTO) 0.1 K/uL (0.0-8.0); BASOPHILS % (AUTO) 0.8 % (0.0-2.0); EOSINOPHILS # (AUTO) 0.4 K/uL (0.0-0.7); EOSINOPHILS % (AUTO) 6.6 % (0.0-7.0); HEMATOCRIT 33.8 % (31.2-41.9); HEMOGLOBIN 11.2 g/dL (10.9-14.3); LYMPHOCYTES # (AUTO) 1.7 K/uL (20.0-40.0); LYMPHOCYTES % (AUTO) 26.4 % (20.5-51.5); MEAN CORPUSCULAR HEMOGLOBIN 29.8 uug (24.7-32.8); MEAN CORPUSCULAR HGB CONC 33 g/dL (32.3-35.6); MEAN CORPUSCULAR VOLUME 89.9 fL (75.5-95.3); MONOCYTES # (AUTO) 0.5 K/uL (2.0-10.0); MONOCYTES % (AUTO) 6.9 % (0.0-11.0); NEUTROPHILS # (AUTO) 3.9 K/uL (1.8-8.9); NEUTROPHILS % (AUTO) 59.3 % (38.5-71.5); PLATELET COUNT (AUTO) 251 K/uL (179-408); RED BLOOD CELL COUNT(AUTO) 3.76 MIL/uL (3.63-4.92); WHITE BLOOD COUNT (AUTO) 6.6 K/uL (3.8-11.8)
[2018-08-12] MEDS: ALBUTEROL SULFATE 2.5 MG/3 ML NEBU NEB ONE (19:54)
[2018-08-12] MEDS: IPRATROPIUM BROMIDE 0.5 MG/2.5 ML NEBU NEB ONE (19:54)
--- NOTE | 2018-08-12 19:55 | NUR ---
RT AT BEDSIDE.
[2018-08-12] MEDS ORDERED: ALBUTEROL SULFATE 2.5 MG/3 ML NEBU ONE (19:57)
[2018-08-12] MEDS ORDERED: IPRATROPIUM BROMIDE 0.5 MG/2.5 ML NEBU ONE (19:57)
[2018-08-12 20:02] LABS: CREATININE 0.9 mg/dL (0.6-1.3); POTASSIUM 3.9 mmol/L (3.5-5.1)
[2018-08-12 20:14] LABS: BILIRUBIN,DIRECT 0.1 mg/dL (0.0-0.2); BILIRUBIN,TOTAL 0.2 mg/dL (0.2-1.0); TOTAL PROTEIN, SERUM 6.6 g/dL (6.4-8.2)
[2018-08-12 20:44] LABS: *URINE HCG, QUAL NEGATIVE (NEGATIVE)
--- NOTE | 2018-08-12 21:05 | NUR ---
SHARON OLIVEIRA AT BEDSIDE FOR PT UPDATE.
--- NOTE | 2018-08-12 21:09 | NUR ---
Patient discharged to home in stable conditon. Written and verbal after care instructions given. Patient verbalizes understanding of instructions. PT D/C W/ PRESCRIPTION. ALL BELONGINGS W/ PT. PT SELF-AMBULATED W/O DIFFICULTY.
[2018-08-12 21:10] VITALS: BP 112/72
[2018-08-30] MEDS ORDERED: METH4TAB3 PO (11:15)
[2018-08-30] MEDS ORDERED: CEPH500C2 PO (11:15)
[2018-08-30] MEDS ORDERED: ALBU8.5H8 INH (11:15)
== END 2018-08-12 21:12 | disposition home or self-care (01) ==
LOC: ER 18:31
DX: R53.1 Weakness (principal); R07.9 Chest pain, unspecified; I10 Essential (primary) hypertension; J44.9 Chronic obstructive pulmonary disease, unspecified; K21.9 Gastro-esophageal reflux disease without esophagitis; G89.29 Other chronic pain; M54.9 Dorsalgia, unspecified; M54.2 Cervicalgia; F17.200 Nicotine dependence, unspecified, uncomplicated; Z91.018 Allergy to other foods; Z79.51 Long term (current) use of inhaled steroids; Z79.899 Other long term (current) drug therapy
CPT/HCPCS: 36415; 70030-TC; 71045; 84703; 85025; 85730; 93005; A4663; J3590

== ENCOUNTER 2018-08-27 11:30 | Inpatient (IN) | payer MEDICARE, MEDICAID ==
[~2018-08-27] VITALS: Ht 167.6 cm; Wt 113.4 kg
--- NOTE | 2018-08-27 11:39 | NUR ---
Patient came to our ER department 5x this month for same issues, NAD.
[2018-08-27] MEDS ORDERED: FLUO-120 PO (11:50)
[2018-08-27] MEDS ORDERED: ZIPR20CA2 PO (11:50)
[2018-08-27] MEDS ORDERED: CLON0.1T PO (11:50)
[2018-08-27] MEDS ORDERED: PRED20TA PO (11:50)
[2018-08-27] MEDS ORDERED: AZIT250T13 PO (11:50)
[2018-08-27] MEDS ORDERED: BENZ200C53 PO (11:50)
[2018-08-27] MEDS ORDERED: PARO20TA7 PO (11:50)
[2018-08-27] MEDS ORDERED: LOSA100T31 PO (11:50)
--- NOTE | 2018-08-27 12:18 | NUR ---
Dr Brown is at bedside evaluating the patient, pending MD orders
[2018-08-27] MEDS ORDERED: DEXAMETHASONE SOD PHOSPHATE 4 MG INJ IV ONE (12:30)
[2018-08-27] MEDS ORDERED: ALBUTEROL SULFATE 2.5 MG/3 ML NEBU NEB ONE (12:30)
[2018-08-27] MEDS ORDERED: IPRATROPIUM BROMIDE 0.5 MG/2.5 ML NEBU NEB ONE (12:30)
[2018-08-27] MEDS ORDERED: DEXAMETHASONE SOD PHOSPHATE 10 MG INJ ONE (12:39)
[2018-08-27] MEDS ORDERED: SWABABLE VALVE TRANSFER SET EA MC ONE (12:39)
[2018-08-27] MEDS ORDERED: IOHEXOL 350 100 ML INFUS..BTL ONE (12:40)
[2018-08-27] MEDS ORDERED: IV NORMAL SALINE 250 ML IV ONE (12:40)
[2018-08-27] MEDS ORDERED: ALBUTEROL SULFATE 2.5 MG/3 ML NEBU ONE (12:42)
[2018-08-27] MEDS ORDERED: IPRATROPIUM BROMIDE 0.5 MG/2.5 ML NEBU ONE (12:42)
[2018-08-27 12:47] LABS: BASOPHILS % (AUTO) 0.2 % (0.0-2.0); EOSINOPHILS % (AUTO) 0.3 % (0.0-7.0); HEMATOCRIT 36.9 % (31.2-41.9); HEMOGLOBIN 12.1 g/dL (10.9-14.3); LYMPHOCYTES # (AUTO) 0.5 K/uL (20.0-40.0); LYMPHOCYTES % (AUTO) 7.8 % (20.5-51.5); MEAN CORPUSCULAR HEMOGLOBIN 29.4 uug (24.7-32.8); MEAN CORPUSCULAR HGB CONC 33 g/dL (32.3-35.6); MEAN CORPUSCULAR VOLUME 89.4 fL (75.5-95.3); MONOCYTES # (AUTO) 0.2 K/uL (2.0-10.0); MONOCYTES % (AUTO) 2.4 % (0.0-11.0); NEUTROPHILS # (AUTO) 5.5 K/uL (1.8-8.9); NEUTROPHILS % (AUTO) 89.3 % (38.5-71.5); PLATELET COUNT (AUTO) 215 K/uL (179-408); RED BLOOD CELL COUNT(AUTO) 4.13 MIL/uL (3.63-4.92); WHITE BLOOD COUNT (AUTO) 6.2 K/uL (3.8-11.8)
[2018-08-27 12:58] LABS: CREATININE 0.9 mg/dL (0.6-1.3); POTASSIUM 4.3 mmol/L (3.5-5.1)
[2018-08-27 13:10] LABS: BILIRUBIN,DIRECT 0.1 mg/dL (0.0-0.2); BILIRUBIN,TOTAL 0.3 mg/dL (0.2-1.0); TOTAL PROTEIN, SERUM 7.4 g/dL (6.4-8.2)
--- NOTE | 2018-08-27 13:12 | NUR ---
Patient is resting comfortably on gurney while on & off using her cellphone, no dyspnea seen since arrival to ER. Patient wants "something for pain", c/o chronic back pains, notified.
--- NOTE | 2018-08-27 13:18 | NUR ---
Patient ambulated to bathroom in slow steady gait, NAD.
--- NOTE | 2018-08-27 14:08 | NUR ---
JUAN MANUEL Trevino is at bedside evaluating this patient.
[2018-08-27] MEDS ORDERED: OXYCODONE/APAP 5-325 MG TABLET PO ONE (14:15)
[2018-08-27] MEDS ORDERED: OXYCODONE/APAP 5-325 MG TABLET ONE (14:16)
--- NOTE | 2018-08-27 14:26 | NUR ---
Patient says, "Can I have some ativan?", Dr Brown notified.
--- NOTE | 2018-08-27 14:30 | NUR ---
Pending admitting papers from ER registration staff Bernardo at this time, no acute change in patient's condition seen. Comfort and safety measures maintained. Assurances provided to patient regardng her dinner tray, plan of care and admission. Crackers, juice and coffee were given while waiting for the dinner tray.
--- NOTE | 2018-08-27 15:09 | NUR ---
Patient expressed decreased neck & back pains after po Percocet. Patient is eating snacks with good appetite.
[2018-08-27] MEDS ORDERED: LORAZEPAM 2 MG/1 ML VIAL IV PRN (15:15)
[2018-08-27] MEDS ORDERED: MAGNESIUM HYDROXIDE 30 ML LIQUID UDC PO PRN (15:15)
[2018-08-27] MEDS ORDERED: ONDANSETRON 4 MG/2 ML VIAL IV PRN (15:15)
[2018-08-27] MEDS ORDERED: HYDROMORPHONE 1 MG/1 ML DISP.SYRIN IV PRN (15:15)
[2018-08-27] MEDS ORDERED: ACETAMINOPHEN 325 MG TABLET PO PRN (15:15)
[2018-08-27] MEDS ORDERED: Z GUARD REMEDY PASTE 57 GM TUBE TOP PRN (15:15)
--- NOTE | 2018-08-27 15:23 | NUR ---
Patient received on [facility] at this time.
[2018-08-27] MEDS ORDERED: CEFTRIAXONE 1 G in IV DEXTROSE 5% 50 ML IV SCH (15:30)
[2018-08-27] MEDS ORDERED: methylPREDNISolone SOD SUCC 40 MG/ML VIAL IV SCH (16:00)
[2018-08-27] MEDS: NICOTINE 14 MG/24HR PATCH TD SCH (16:45)
[2018-08-27] MEDS: FUROSEMIDE 40 MG/4 ML VIAL IV SCH ×2 (16:47→21:08)
[2018-08-27] MEDS: AZITHROMYCIN IV 500 MG in IV DEXTROSE 5% 250 ML IV SCH (16:49)
[2018-08-27] MEDS: ASPIRIN 81 MG TAB.CHEW PO SCH (16:49)
[2018-08-27] MEDS: CLONAZEPAM 1 MG TABLET PO SCH (17:00)
[2018-08-27] MEDS ORDERED: FLUTICASONE/SALMETEROL 250/50 INHALER INH SCH (17:00)
[2018-08-27] MEDS: CARBAMAZEPINE 200 MG TABLET PO SCH (17:59)
[2018-08-27] MEDS: GABAPENTIN 300 MG CAPSULE PO SCH (17:59)
[2018-08-27] MEDS: HYDROMORPHONE 1 MG/1 ML DISP.SYRIN IV PRN ×2 (18:00→23:25)
[2018-08-27] MEDS: CLONIDINE HCL 0.1 MG TABLET PO SCH (18:00)
[2018-08-27 18:15] VITALS: BP 109/62
[2018-08-27] MEDS: CEFTRIAXONE 2 G in IV DEXTROSE 5% 100 ML IV SCH (18:30)
[2018-08-27 18:50] VITALS: BP 109/60
[2018-08-27 19:38] VITALS: BP 114/79
--- NOTE | 2018-08-27 20:00 | NUR ---
PATIENT IS AWAKE ALERT AND ORIENTED X3, DENIES PAIN OR ANY DISTRESS, NO SOB ON ASSESSMENT, SAFETY AND COMFORT MEASURES IN PLACE. CALL LIGHT IS WITHIN REACH, WILL CONTINUE TO MONITOR THE PATIENT.
[2018-08-27] MEDS: IPRATROPIUM BROMIDE 0.5 MG/2.5 ML NEBU NEB PRN (20:20)
[2018-08-27] MEDS: ALBUTEROL SULFATE 2.5 MG/ 0.5 ML NEBU NEB PRN (20:20)
[2018-08-27] MEDS: ENOXAPARIN SODIUM 40 MG/0.4 ML DISP.SYRIN SQ SCH (21:09)
[2018-08-27] MEDS: methylPREDNISolone SOD SUCC 40 MG/ML VIAL IV SCH (21:10)
[2018-08-27 23:23] VITALS: BP 102/56
[2018-08-27] MEDS: ZOLPIDEM 5 MG TABLET PO PRN (23:24)
[2018-08-28] MEDS: IPRATROPIUM BROMIDE 0.5 MG/2.5 ML NEBU NEB PRN ×2 (02:31→13:22)
[2018-08-28] MEDS: ALBUTEROL SULFATE 2.5 MG/ 0.5 ML NEBU NEB PRN ×2 (02:31→13:22)
[2018-08-28] MEDS: HYDROCODONE/APAP 5-325MG TABLET PO PRN ×4 (02:59→23:59)
[2018-08-28 03:42] VITALS: BP 120/58
[2018-08-28] MEDS: methylPREDNISolone SOD SUCC 40 MG/ML VIAL IV SCH ×3 (06:04→21:05)
[2018-08-28] MEDS: PANTOPRAZOLE SODIUM 40 MG TABLET.DR PO SCH (06:04)
[2018-08-28] MEDS: HYDROMORPHONE 1 MG/1 ML DISP.SYRIN IV PRN ×4 (06:05→21:06)
[2018-08-28 06:11] LABS: BASOPHILS % (AUTO) 0.5 % (0.0-2.0); EOSINOPHILS % (AUTO) 0.1 % (0.0-7.0); HEMATOCRIT 34.8 % (31.2-41.9); HEMOGLOBIN 11.4 g/dL (10.9-14.3); LYMPHOCYTES # (AUTO) 0.9 K/uL (20.0-40.0); LYMPHOCYTES % (AUTO) 11.9 % (20.5-51.5); MEAN CORPUSCULAR HEMOGLOBIN 29.3 uug (24.7-32.8); MEAN CORPUSCULAR HGB CONC 33 g/dL (32.3-35.6); MEAN CORPUSCULAR VOLUME 89.3 fL (75.5-95.3); MONOCYTES # (AUTO) 0.7 K/uL (2.0-10.0); MONOCYTES % (AUTO) 8.4 % (0.0-11.0); NEUTROPHILS # (AUTO) 6.2 K/uL (1.8-8.9); NEUTROPHILS % (AUTO) 79.1 % (38.5-71.5); PLATELET COUNT (AUTO) 203 K/uL (179-408); WHITE BLOOD COUNT (AUTO) 7.8 K/uL (3.8-11.8)
[2018-08-28 06:27] LABS: BILIRUBIN,TOTAL 0.1 mg/dL (0.2-1.0); CREATININE 1.2 mg/dL (0.6-1.3); MAGNESIUM 1.8 mg/dL (1.8-2.4); PHOSPHOROUS 5.7 mg/dL (2.5-4.9); POTASSIUM 3.8 mmol/L (3.5-5.1); TOTAL PROTEIN, SERUM 6.8 g/dL (6.4-8.2)
--- NOTE | 2018-08-28 06:33 | NUR ---
PATIENT IS AWAKE, NO ACUTE DISTRESS AT PRESENT, EPISODES OF COUGH WITHOUT SOB, NO FURTHER CHANGES IN STATUS. PAIN MEDS GIVEN ON REQUEST OF THE PATIENT. SAFETY MEASURES MAINTAINED AT ALL TIMES.
--- NOTE | 2018-08-28 08:12 | NUR ---
PATIENT NOTED RESTING IN BED, COMPLAINTS OF GENERALIZED PAIN, PRN NORCO GIVEN FOR PAIN, OXYGEN NOTED AT 2 LITERS, SATURATING 99%, CALL LIGHT IN REACH, BED LOCKED AND IN LOWEST POSITION, ALL NEEDS KNOWN
[2018-08-28] MEDS: CLONAZEPAM 1 MG TABLET PO SCH ×2 (08:18→17:00)
[2018-08-28] MEDS: GABAPENTIN 300 MG CAPSULE PO SCH ×3 (08:18→17:01)
[2018-08-28] MEDS: ASPIRIN 81 MG TAB.CHEW PO SCH (08:18)
[2018-08-28] MEDS: CARBAMAZEPINE 200 MG TABLET PO SCH ×3 (08:19→17:01)
[2018-08-28] MEDS: PAROXETINE HCL 20 MG TABLET PO SCH (08:19)
[2018-08-28] MEDS: FLUOXETINE HCL 20 MG CAPSULE PO SCH (08:19)
[2018-08-28] MEDS: FLUTICASONE/VILANTEROL 1 EACH BLST.W.DEV INH SCH (08:20)
[2018-08-28] MEDS: FLUTICASONE PROP NASAL SPRAY 16 GM BOTTLE NS SCH (08:22)
[2018-08-28] MEDS: FUROSEMIDE 40 MG/4 ML VIAL IV SCH (08:25)
[2018-08-28] MEDS: NICOTINE 14 MG/24HR PATCH TD SCH (08:26)
[2018-08-28] MEDS: LOSARTAN POTASSIUM 50 MG TABLET PO SCH (08:26)
[2018-08-28] MEDS ORDERED: Medication Not On Formulary EA (Losartan Potassium 1 TAB) PO SCH (09:00)
[2018-08-28 11:16] VITALS: BP 108/64
--- NOTE | 2018-08-28 13:11 | NUR ---
MD IVERSON STATES PATIENT WILL HAVE CARDIAC CT 08.29.18, NPO AFTER MIDNIGHT, ORDER PLACED AT THIS TIME
[2018-08-28 15:21] VITALS: BP 92/51
[2018-08-28] MEDS: ALBUTEROL SULFATE 2.5 MG/3 ML NEBU NEB SCH ×2 (15:30→19:32)
[2018-08-28] MEDS: IPRATROPIUM BROMIDE 0.5 MG/2.5 ML NEBU NEB SCH ×2 (15:30→19:32)
[2018-08-28] MEDS: AZITHROMYCIN IV 500 MG in IV DEXTROSE 5% 250 ML IV SCH (17:00)
[2018-08-28] MEDS: CLONIDINE HCL 0.1 MG TABLET PO SCH (17:05)
[2018-08-28 19:50] VITALS: BP 103/60
[2018-08-28] MEDS: CEFTRIAXONE 2 G in IV DEXTROSE 5% 100 ML IV SCH (20:20)
[2018-08-28] MEDS: ATORVASTATIN 40 MG TABLET PO SCH (21:05)
[2018-08-28] MEDS: ENOXAPARIN SODIUM 40 MG/0.4 ML DISP.SYRIN SQ SCH (21:05)
[2018-08-29] VITALS: BP 118/72
[2018-08-29 04:00] VITALS: BP 115/76
--- NOTE | 2018-08-29 05:37 | NUR ---
Patient was in good mood and cooperative through the night, upcoming CT angio of the heart was explained and NPO after midnight was reinforced. New IV was inserted in the right forearm due to frequent positional occlusions. Patient expressed anxiety about possible results of the upcoming test, declined Ativan. Food and drink were removed from the room. Slept well, no acute distress noted. Medication was given on request for pain. Comfort and safety provided. sales department supervisor is scheduled for 1000, procedure is at 1100.
[2018-08-29] MEDS: methylPREDNISolone SOD SUCC 40 MG/ML VIAL IV SCH ×3 (06:14→21:12)
[2018-08-29 06:46] LABS: CREATININE 0.8 mg/dL (0.6-1.3)
[2018-08-29] MEDS ORDERED: DILTIAZEM HCL 60 MG TABLET PO ONE (07:00)
[2018-08-29] MEDS: PANTOPRAZOLE SODIUM 40 MG TABLET.DR PO SCH (07:00)
[2018-08-29 07:06] LABS: BASOPHILS % (AUTO) 0.1 % (0.0-2.0); EOSINOPHILS % (AUTO) 0.1 % (0.0-7.0); HEMATOCRIT 33.6 % (31.2-41.9); HEMOGLOBIN 11.2 g/dL (10.9-14.3); LYMPHOCYTES # (AUTO) 1.1 K/uL (20.0-40.0); LYMPHOCYTES % (AUTO) 17.4 % (20.5-51.5); MEAN CORPUSCULAR HEMOGLOBIN 29.8 uug (24.7-32.8); MEAN CORPUSCULAR HGB CONC 33 g/dL (32.3-35.6); MEAN CORPUSCULAR VOLUME 89.5 fL (75.5-95.3); MONOCYTES # (AUTO) 0.3 K/uL (2.0-10.0); NEUTROPHILS # (AUTO) 4.9 K/uL (1.8-8.9); NEUTROPHILS % (AUTO) 77.4 % (38.5-71.5); PLATELET COUNT (AUTO) 209 K/uL (179-408); RED BLOOD CELL COUNT(AUTO) 3.76 MIL/uL (3.63-4.92); WHITE BLOOD COUNT (AUTO) 6.3 K/uL (3.8-11.8)
--- NOTE | 2018-08-29 07:30 | NUR ---
RECEIVED PATIENT ON BED ASLEEP. AAOX4 TELE SR LOW 50'S NO ACUTE DISTRESS NOTED IV ACCESS ON BOTH RIGHT FOREARM #22 AND RIGHT AC #18 INTACT AND PATENT. ON NPO PATIENT IS SCHEDULED FOR CT ANGIO AT [facility] AT 11 AM, SEISMOGRAPH OBSERVER TIME IS AT 10AM. COMFORT MEASURES PROVIDED. CALL LIGHT WITHIN REACH. WILL CONTINUE TO MONITOR CLOSELY.
--- NOTE | 2018-08-29 07:59 | NUR ---
CARDIZEM AND PROTONIX NOT GIVEN, PATIENT ON NPO FOR CT ANGIOGRAM AT 1100AM. WILL CONTINUE TO MONITOR CLOSELY.
[2018-08-29] MEDS: ALBUTEROL SULFATE 2.5 MG/3 ML NEBU NEB SCH ×4 (08:06→20:01)
[2018-08-29] MEDS: IPRATROPIUM BROMIDE 0.5 MG/2.5 ML NEBU NEB SCH ×4 (08:06→20:02)
[2018-08-29] MEDS: NICOTINE 14 MG/24HR PATCH TD SCH (09:00)
[2018-08-29] MEDS: FLUOXETINE HCL 20 MG CAPSULE PO SCH ×2 (09:00→14:15)
[2018-08-29] MEDS: ASPIRIN 81 MG TAB.CHEW PO SCH ×2 (09:00→13:52)
[2018-08-29] MEDS: CLONAZEPAM 1 MG TABLET PO SCH ×2 (09:00→17:29)
[2018-08-29] MEDS: CARBAMAZEPINE 200 MG TABLET PO SCH ×3 (09:00→17:26)
[2018-08-29] MEDS: GABAPENTIN 300 MG CAPSULE PO SCH ×3 (09:00→17:26)
[2018-08-29] MEDS: LOSARTAN POTASSIUM 50 MG TABLET PO SCH ×2 (09:00→14:00)
[2018-08-29] MEDS: PAROXETINE HCL 20 MG TABLET PO SCH ×2 (09:00→13:52)
[2018-08-29] MEDS: FLUTICASONE PROP NASAL SPRAY 16 GM BOTTLE NS SCH (09:25)
[2018-08-29] MEDS: FLUTICASONE/VILANTEROL 1 EACH BLST.W.DEV INH SCH (09:25)
--- NOTE | 2018-08-29 09:30 | NUR ---
AM MEDS NON ADMINISTERED, PATIENT SCHEDULED FOR CT ANGIOGRAM AT [facility] @ 11AM. WILL CONTINUE TO MONITOR CLOSELY.
[2018-08-29] MEDS: HYDROMORPHONE 1 MG/1 ML DISP.SYRIN IV PRN ×4 (09:31→22:35)
--- NOTE | 2018-08-29 10:18 | NUR ---
PATIENT PICKED UP FOR SCHEDULED CT ANGIO AT [facility]. REPORT GIVEN TO EMT.
--- NOTE | 2018-08-29 12:30 | NUR ---
PATIENT BACK FROM CARDIO CT ANGIOGRAM, IN STABLE CONDITION
[2018-08-29] MEDS: HYDROCODONE/APAP 5-325MG TABLET PO PRN (13:12)
--- NOTE | 2018-08-29 15:00 | NUR ---
PATIENT SEEN ADND EXAMINED BY DR. IVERSON
[2018-08-29 15:22] VITALS: BP 101/50
[2018-08-29] MEDS: AZITHROMYCIN IV 500 MG in IV DEXTROSE 5% 250 ML IV SCH (16:10)
[2018-08-29] MEDS: CEFTRIAXONE 2 G in IV DEXTROSE 5% 100 ML IV SCH (17:26)
[2018-08-29] MEDS: CLONIDINE HCL 0.1 MG TABLET PO SCH (17:30)
--- NOTE | 2018-08-29 18:37 | NUR ---
PATIENT RESTING ON BED TALKING ON PHONE. IN STABLE CONDITION, REINSERTED IV ON THE RIGHT HAND #22 INTACT AND PATENT. PATIENT'S PAIN MANAGED BY DILAUDID 0.5 MG IV Q4 PRN LAST GIVEN AT 1827, WELL TOLERATED ALL NEEDS ATTENDED AND ANTICIPATED. CALL LIGHT WITHIN REACH. WILL ENDORSE ACCORDINGLY.
[2018-08-29] MEDS ORDERED: diphenhydrAMINE 25 MG CAP PO PRN (18:45)
--- NOTE | 2018-08-29 18:45 | NUR ---
PATIENT COMPLAINED OF SLIGHT ITCHING ON RIGHT ARM WHERE IVATB CURRENTLY INFUSING, PATIENT STATES IT'S TOLERABLE BUT ANNOYING. INFORMED ERIC FLULER BUSINESS INTELLIGENCE ADMINISTRATOR, RECEIVED ORDERS FOR BENADRYL PO Q6PRN FOR ITCHING, ORDERS NOTED AND CARRIED OUT
--- NOTE | 2018-08-29 19:00 | NUR ---
RECEIVED PATIENT IN BED ALERT ORIENTED, NO COMPLAIN OF PAIN AT THIS TIME. CONT ON HHN TX FOR COUGH AND COPD EXCARBATION. CALL LIGHT WITHIN REACH.
--- NOTE | 2018-08-29 19:07 | NUR ---
PATIENT REQUESTED TO HAVE ANOTHER IV INSERTED. NEW IV ACCESS INSERTED ON LEFT AC #22 INTACT AND PATENT INFUSING ROCEPHIN IV.
[2018-08-29 20:29] VITALS: BP 119/59
[2018-08-29] MEDS: ATORVASTATIN 40 MG TABLET PO SCH (21:12)
[2018-08-29] MEDS: ENOXAPARIN SODIUM 40 MG/0.4 ML DISP.SYRIN SQ SCH (21:20)
[2018-08-29] MEDS: ZOLPIDEM 5 MG TABLET PO PRN (22:29)
[2018-08-30] MEDS: IPRATROPIUM BROMIDE 0.5 MG/2.5 ML NEBU NEB PRN (01:08)
[2018-08-30] MEDS: ALBUTEROL SULFATE 2.5 MG/ 0.5 ML NEBU NEB PRN (01:08)
--- NOTE | 2018-08-30 01:13 | NUR ---
PLACE A CALL TO DR. GARY THAT PATIENT STILL COMPLAINING OF PAIN AND DILAUDID HELP BUT NOT COMPLETELY RESOLVE HER PAIN. MD ORDERED MORPHINE INSTEAD, ORDER NOTED AND CARRIED OUT.
[2018-08-30] MEDS ORDERED: MORPHINE SULFATE 2 MG/1 ML DISP.SYRIN IM PRN (01:15)
[2018-08-30] MEDS: MORPHINE SULFATE 2 MG/1 ML DISP.SYRIN IV PRN ×3 (01:45→10:54)
[2018-08-30 04:30] VITALS: BP 119/64
--- NOTE | 2018-08-30 06:10 | NUR ---
PATIENT ASLEEP BUT EASILY AROUSABLE. NO SOB NO CHEST PAIN NOTED, CONT ON HHN FOR COPD EXACERBATION. OXYGEN SAT WNL. CONT ON PAIN MANAGEMENT. CONT TO MONITOR.
[2018-08-30] MEDS: PANTOPRAZOLE SODIUM 40 MG TABLET.DR PO SCH (06:29)
[2018-08-30] MEDS: methylPREDNISolone SOD SUCC 40 MG/ML VIAL IV SCH (06:29)
[2018-08-30 06:36] LABS: BASOPHILS % (AUTO) 0.1 % (0.0-2.0); HEMATOCRIT 34.6 % (31.2-41.9); HEMOGLOBIN 11.7 g/dL (10.9-14.3); LYMPHOCYTES % (AUTO) 17.3 % (20.5-51.5); MEAN CORPUSCULAR HEMOGLOBIN 29.9 uug (24.7-32.8); MEAN CORPUSCULAR HGB CONC 34 g/dL (32.3-35.6); MEAN CORPUSCULAR VOLUME 88.4 fL (75.5-95.3); MONOCYTES # (AUTO) 0.4 K/uL (2.0-10.0); MONOCYTES % (AUTO) 5.9 % (0.0-11.0); NEUTROPHILS # (AUTO) 4.6 K/uL (1.8-8.9); NEUTROPHILS % (AUTO) 76.7 % (38.5-71.5); PLATELET COUNT (AUTO) 238 K/uL (179-408); RED BLOOD CELL COUNT(AUTO) 3.91 MIL/uL (3.63-4.92)
[2018-08-30 06:38] LABS: CREATININE 0.8 mg/dL (0.6-1.3); POTASSIUM 3.7 mmol/L (3.5-5.1)
[2018-08-30] MEDS: NICOTINE 14 MG/24HR PATCH TD SCH (09:00)
[2018-08-30] MEDS: FLUTICASONE PROP NASAL SPRAY 16 GM BOTTLE NS SCH (09:01)
[2018-08-30] MEDS: ASPIRIN 81 MG TAB.CHEW PO SCH (09:02)
[2018-08-30] MEDS: PAROXETINE HCL 20 MG TABLET PO SCH (09:02)
[2018-08-30] MEDS: FLUOXETINE HCL 20 MG CAPSULE PO SCH (09:02)
[2018-08-30] MEDS: GABAPENTIN 300 MG CAPSULE PO SCH ×2 (09:02→12:29)
[2018-08-30] MEDS: CLONAZEPAM 1 MG TABLET PO SCH (09:02)
[2018-08-30] MEDS: CARBAMAZEPINE 200 MG TABLET PO SCH ×2 (09:02→12:29)
[2018-08-30] MEDS: LOSARTAN POTASSIUM 50 MG TABLET PO SCH (09:03)
[2018-08-30] MEDS: FLUTICASONE/VILANTEROL 1 EACH BLST.W.DEV INH SCH (09:09)
[2018-08-30] MEDS: ALBUTEROL SULFATE 2.5 MG/3 ML NEBU NEB SCH ×2 (09:16→11:30)
[2018-08-30] MEDS: IPRATROPIUM BROMIDE 0.5 MG/2.5 ML NEBU NEB SCH ×2 (09:16→11:51)
--- NOTE | 2018-08-30 09:25 | NUR ---
PATIENT HAVING HER BREATHING TREATMENT.
--- NOTE | 2018-08-30 09:27 | NUR ---
PATIENT IN BED ASLEEP COMFORTABLY . NO S/S OF ACUTE DISTRESS NOTED AT THIS TIME NO SOB. CONTINUE ON HHN FOR COPD EXACERBATION. CONTINUE TO MONITOR FOR SAFETY, OXYGEN SATURATION WNL, CONTINUE TREATMENT PLAN.. Addendum: 08/30/18 at 0930 by ASIM CASAREZ RN NOTES FOR [id number]
[2018-08-30 11:00] VITALS: BP 135/72
[2018-08-30] MEDS ORDERED: CEPH500C2 PO (11:15)
[2018-08-30] MEDS ORDERED: METH4TAB3 PO (11:15)
[2018-08-30] MEDS ORDERED: ALBU8.5H8 INH (11:15)
--- NOTE | 2018-08-30 12:32 | NUR ---
PATIENT DISCHARGE TO HOME VIA PRIVATE WITH , ALERT AND ORIENTEDX4, ABLE TO MAKE NEEDS KNOWN. NO S/S OF SOB NOTED, NO C/O PAIN NOTED AT THIS TIME. DISCHARGE INSTRUCTION GIVEN , PRESCRIBE MEDICATION GIVEN AND VERBALIZED UNDERSTANDING. BELONGINGS AND OWN MEDICATION FROM PHARMACY RETURN TO THE PATIENT AND ACCOUNTED FOR. IV AND ID BAND REMOVED. QUESTIONS AND CONCERNS ADDRESSED.
== END 2018-08-30 12:35 | disposition home or self-care (01) | DRG 280 ==
LOC: ER 11:30 → TELE3 15:05 → MEDSURG3 08-29 16:03
PROVIDERS: ADMIT Nurse Practitioner Acute Care; ATTEND Nurse Practitioner Acute Care
DX: I11.0 Hypertensive heart disease with heart failure (principal); I50.33 Acute on chronic diastolic (congestive) heart failure; J96.02 Acute respiratory failure with hypercapnia; I21.A1 Myocardial infarction type 2; J96.01 Acute respiratory failure with hypoxia; J44.1 Chronic obstructive pulmonary disease with (acute) exacerbation; J45.901 Unspecified asthma with (acute) exacerbation; E87.1 Hypo-osmolality and hyponatremia; Z68.41 Body mass index [BMI] 40.0-44.9, adult; F11.20 Opioid dependence, uncomplicated; F13.20 Sedative, hypnotic or anxiolytic dependence, uncomplicated; Z91.018 Allergy to other foods; E66.01 Morbid (severe) obesity due to excess calories; Z71.3 Dietary counseling and surveillance; Z98.84 Bariatric surgery status; G89.4 Chronic pain syndrome; F31.9 Bipolar disorder, unspecified; F41.9 Anxiety disorder, unspecified; Z79.51 Long term (current) use of inhaled steroids; Z79.899 Other long term (current) drug therapy; Z83.3 Family history of diabetes mellitus; Z87.01 Personal history of pneumonia (recurrent); Z87.11 Personal history of peptic ulcer disease; Z90.49 Acquired absence of other specified parts of digestive tract; Z91.19 Patient's noncompliance with other medical treatment and regimen; K21.9 Gastro-esophageal reflux disease without esophagitis; I70.0 Atherosclerosis of aorta; F17.211 Nicotine dependence, cigarettes, in remission
CPT/HCPCS: 36415; 70030-TC; 71045; 71275; 83605; 83735; 84100; 85025; 87040; 87400; 93005; 93307; 94640; 94664; A4663; G0378; J0456; J0696; J1100; J1170; J1650; J1940; J2270; J2405; J2920; J3535; J3590; J7050; J7060; Q9967

== ENCOUNTER 2018-09-09 23:54 | Emergency (ER) | payer MEDICARE, MEDICAID ==
[~2018-09-09] VITALS: Ht 167.6 cm; Wt 108.9 kg
[~2018-09-09 23:54] MED LIST changes: +ALBU8.5H8 INH; +BENZ200C53 PO; +CEPH500C2 PO; +CLON0.1T PO; +FLUO-120 PO; +LOSA100T31 PO; -LOSA50TA39 PO; +METH4TAB3 PO; +PARO20TA7 PO; -SULFAMETHOXAZOLE-TMP DS TABLET; +ZIPR20CA2 PO
[2018-09-10] MEDS ORDERED: ONDANSETRON ODT 4 MG TAB.RAPDIS ONE (00:32)
[2018-09-10] MEDS: OXYCODONE/APAP 5-325 MG TABLET PO ONE ×2 (00:33→03:27)
[2018-09-10] MEDS ORDERED: PANTOPRAZOLE SODIUM 40 MG TABLET.DR PO ONE (00:33)
[2018-09-10] MEDS ORDERED: OXYCODONE/APAP 5-325 MG TABLET ONE ×2 (00:33→03:27)
[2018-09-10] MEDS: PANTOPRAZOLE SODIUM 40 MG TABLET.DR PO ONE (00:33)
[2018-09-10] MEDS ORDERED: MAG HYDROX/AL HYDROX/SIMETH 30 ML LIQUID UDC ONE (00:33)
[2018-09-10] MEDS: MAG HYDROX/AL HYDROX/SIMETH 30 ML LIQUID UDC PO ONE (00:33)
[2018-09-10] MEDS: ONDANSETRON ODT 4 MG TAB.RAPDIS SL ONE (00:34)
[2018-09-10 00:43] LABS: BASOPHILS % (AUTO) 0.5 % (0.0-2.0); EOSINOPHILS # (AUTO) 0.5 K/uL (0.0-0.7); EOSINOPHILS % (AUTO) 6.9 % (0.0-7.0); HEMATOCRIT 34.1 % (31.2-41.9); HEMOGLOBIN 11.4 g/dL (10.9-14.3); LYMPHOCYTES # (AUTO) 1.7 K/uL (20.0-40.0); MEAN CORPUSCULAR HEMOGLOBIN 29.9 uug (24.7-32.8); MEAN CORPUSCULAR HGB CONC 33 g/dL (32.3-35.6); MEAN CORPUSCULAR VOLUME 89.5 fL (75.5-95.3); MONOCYTES # (AUTO) 0.5 K/uL (2.0-10.0); MONOCYTES % (AUTO) 7.1 % (0.0-11.0); NEUTROPHILS # (AUTO) 4.8 K/uL (1.8-8.9); NEUTROPHILS % (AUTO) 63.5 % (38.5-71.5); PLATELET COUNT (AUTO) 210 K/uL (179-408); RED BLOOD CELL COUNT(AUTO) 3.81 MIL/uL (3.63-4.92); WHITE BLOOD COUNT (AUTO) 7.6 K/uL (3.8-11.8)
[2018-09-10 00:45] LABS: CREATININE 0.9 mg/dL (0.6-1.3); POTASSIUM 3.8 mmol/L (3.5-5.1)
[2018-09-10] MEDS: IPRATROPIUM BROMIDE 0.5 MG/2.5 ML NEBU NEB ONE (00:45)
[2018-09-10] MEDS: ALBUTEROL SULFATE 2.5 MG/3 ML NEBU NEB ONE (00:45)
[2018-09-10] MEDS ORDERED: ALBUTEROL SULFATE 2.5 MG/3 ML NEBU ONE (00:46)
[2018-09-10] MEDS ORDERED: IPRATROPIUM BROMIDE 0.5 MG/2.5 ML NEBU ONE (00:46)
[2018-09-10 00:58] LABS: BILIRUBIN,DIRECT 0.1 mg/dL (0.0-0.2); BILIRUBIN,TOTAL 0.2 mg/dL (0.2-1.0); TOTAL PROTEIN, SERUM 6.4 g/dL (6.4-8.2)
--- NOTE | 2018-09-10 03:47 | NUR ---
Patient discharged to home in stable conditon. Written and verbal after care instructions given. Patient verbalizes understanding of instructions. PATIENT LEFT WITH STABLE GAIT.
[2018-09-10 03:50] VITALS: BP 124/84
== END 2018-09-10 03:50 | disposition home or self-care (01) ==
LOC: ER 23:56
DX: I10 Essential (primary) hypertension (principal); J44.9 Chronic obstructive pulmonary disease, unspecified; K21.9 Gastro-esophageal reflux disease without esophagitis; F17.200 Nicotine dependence, unspecified, uncomplicated; Z90.49 Acquired absence of other specified parts of digestive tract; Z91.018 Allergy to other foods; Z79.899 Other long term (current) drug therapy; Z79.51 Long term (current) use of inhaled steroids
CPT/HCPCS: 36415; 70030-TC; 71045; 85025; 93005; A4663; J3590; Q0162

== ENCOUNTER 2018-09-14 17:35 | Emergency (ER) | payer MEDICARE, MEDICAID ==
[~2018-09-14] VITALS: Ht 167.6 cm; Wt 111.6 kg
--- NOTE | 2018-09-14 18:38 | NUR ---
Dr. Alvarado here to see pt for MSE.
[2018-09-14] MEDS ORDERED: ALBUTEROL SULFATE 2.5 MG/3 ML NEBU NEB ONE (18:45)
[2018-09-14] MEDS ORDERED: HYDROCODONE/APAP 10-325 MG TABLET PO ONE (18:45)
[2018-09-14] MEDS ORDERED: ONDANSETRON ODT 4 MG TAB.RAPDIS SL ONE (18:45)
[2018-09-14] MEDS ORDERED: predniSONE 10 MG TABLET PO ONE (18:45)
[2018-09-14] MEDS ORDERED: IPRATROPIUM BROMIDE 0.5 MG/2.5 ML NEBU NEB ONE (18:45)
[2018-09-14] MEDS ORDERED: HYDROCODONE/APAP 10-325 MG TABLET ONE ×2 (18:48→18:55)
[2018-09-14] MEDS ORDERED: predniSONE 10 MG TABLET ONE (18:49)
[2018-09-14] MEDS ORDERED: ONDANSETRON ODT 4 MG TAB.RAPDIS ONE (18:50)
[2018-09-14] MEDS ORDERED: ALBUTEROL SULFATE 2.5 MG/3 ML NEBU ONE (18:50)
[2018-09-14] MEDS ORDERED: IPRATROPIUM BROMIDE 0.5 MG/2.5 ML NEBU ONE (18:51)
[2018-09-14 18:55] LABS: *BILIRUBIN,URIN NEGATIVE (NEGATIVE); *BLOOD, URINE 1+ (NEGATIVE); *CLARITY,URINE CLEAR (CLEAR); *COLOR,URINE YELLOW (YELLOW); *KETONES,URINE NEGATIVE (NEGATIVE); *UROBILINOGEN,URINE 0.2 E.U./dl (NORMAL); LEUKOCYTE ESTERASE ,URINE NEGATIVE (NEGATIVE); NITRITE, URINE NEGATIVE (NEGATIVE); PH,URINE 7.5 (5.0-8.0); UGLUCOSE NEGATIVE (NEGATIVE)
[2018-09-14 18:57] LABS: *URINE HCG, QUAL NEGATIVE (NEGATIVE)
[2018-09-14 18:59] LABS: BASOPHILS % (AUTO) 0.7 % (0.0-2.0); EOSINOPHILS # (AUTO) 0.5 K/uL (0.0-0.7); EOSINOPHILS % (AUTO) 8.3 % (0.0-7.0); HEMATOCRIT 34.6 % (31.2-41.9); HEMOGLOBIN 11.4 g/dL (10.9-14.3); LYMPHOCYTES # (AUTO) 1.1 K/uL (20.0-40.0); LYMPHOCYTES % (AUTO) 18.5 % (20.5-51.5); MEAN CORPUSCULAR HEMOGLOBIN 29.4 uug (24.7-32.8); MEAN CORPUSCULAR HGB CONC 33 g/dL (32.3-35.6); MEAN CORPUSCULAR VOLUME 89.3 fL (75.5-95.3); MONOCYTES # (AUTO) 0.4 K/uL (2.0-10.0); MONOCYTES % (AUTO) 6.2 % (0.0-11.0); NEUTROPHILS # (AUTO) 3.8 K/uL (1.8-8.9); NEUTROPHILS % (AUTO) 66.3 % (38.5-71.5); PLATELET COUNT (AUTO) 217 K/uL (179-408); RED BLOOD CELL COUNT(AUTO) 3.87 MIL/uL (3.63-4.92); WHITE BLOOD COUNT (AUTO) 5.7 K/uL (3.8-11.8)
[2018-09-14 19:03] LABS: BACTERIA,URINE NONE SEEN /HPF (NONE SEEN); SQUAMOUS EPITHELIAL CELL,UR FEW /HPF (NONE SEEN); WBC,URINE 0-3 /HPF (0-3)
[2018-09-14 19:06] LABS: CREATININE 0.8 mg/dL (0.6-1.3); POTASSIUM 4.1 mmol/L (3.5-5.1)
--- NOTE | 2018-09-14 19:07 | NUR ---
Full SBAR report given to HARISH Mclean.
[2018-09-14] MEDS ORDERED: AZITHROMYCIN 250 MG TABLET PO ONE (19:15)
[2018-09-14 19:19] LABS: BILIRUBIN,DIRECT 0.1 mg/dL (0.0-0.2); BILIRUBIN,TOTAL 0.2 mg/dL (0.2-1.0); TOTAL PROTEIN, SERUM 6.9 g/dL (6.4-8.2)
[2018-09-14] MEDS ORDERED: AZITHROMYCIN 250 MG TABLET ONE (19:23)
--- NOTE | 2018-09-14 20:30 | NUR ---
Patient discharged to home in stable conditon. Written and verbal after care instructions given. Patient verbalizes understanding of instructions. Pt left ER in stable gait. All belongings w pt. VSS. NAD noted. Appears in no apparent distress. Respirations even + unlabored.
[2018-09-14 20:32] VITALS: BP 138/86
--- NOTE | 2018-09-14 20:34 | NUR ---
Pt left w family via cab.
== END 2018-09-14 20:35 | disposition home or self-care (01) ==
LOC: ER 17:37
DX: J20.9 Acute bronchitis, unspecified (principal); R31.29 Other microscopic hematuria; J44.9 Chronic obstructive pulmonary disease, unspecified; E66.9 Obesity, unspecified; G89.29 Other chronic pain; R10.9 Unspecified abdominal pain; I10 Essential (primary) hypertension; F17.290 Nicotine dependence, other tobacco product, uncomplicated; K21.9 Gastro-esophageal reflux disease without esophagitis; M54.9 Dorsalgia, unspecified; M54.2 Cervicalgia; Z71.6 Tobacco abuse counseling; Z90.49 Acquired absence of other specified parts of digestive tract; Z91.018 Allergy to other foods; Z79.899 Other long term (current) drug therapy
CPT/HCPCS: 36415; 71045; 74176; 80048; 80076; 81001; 83880; 84703; 85025; 93005; 93970; 94640; 99284; 99406; J7512; A4663; J3590; Q0144; Q0162

== ENCOUNTER 2018-09-21 13:26 | Emergency (ER) | payer MEDICARE, MEDICAID ==
[~2018-09-21] VITALS: Ht 167.6 cm; Wt 117.9 kg
[2018-09-21] MEDS ORDERED: CEPH-570 PO (14:12)
--- NOTE | 2018-09-21 14:20 | NUR ---
RECEIVED A 48 Y/O FEMALE PT C/O LOWER BACK PAIN . V/S TAKEN, SEEN BY MD ORDERS PUT IN.
[2018-09-21 14:39] LABS: *BILIRUBIN,URIN NEGATIVE (NEGATIVE); *COLOR,URINE YELLOW (YELLOW); *KETONES,URINE TRACE (NEGATIVE); *UROBILINOGEN,URINE 0.2 E.U./dl (NORMAL); LEUKOCYTE ESTERASE ,URINE NEGATIVE (NEGATIVE); NITRITE, URINE NEGATIVE (NEGATIVE); UGLUCOSE NEGATIVE (NEGATIVE)
[2018-09-21] MEDS ORDERED: IPRATROPIUM BROMIDE 0.5 MG/2.5 ML NEBU NEB ONE (14:45)
[2018-09-21] MEDS ORDERED: IV NORMAL SALINE 500 ML BAG IV ONE (14:45)
[2018-09-21] MEDS ORDERED: methylPREDNISolone SOD SUCC 125 MG/2 ML VIAL IV ONE (14:45)
[2018-09-21] MEDS ORDERED: ALBUTEROL SULFATE 2.5 MG/3 ML NEBU NEB ONE (14:45)
[2018-09-21 14:48] LABS: *BLOOD, URINE TRACE (NEGATIVE); *CLARITY,URINE HAZY (CLEAR)
[2018-09-21 14:51] LABS: WBC,URINE 0-3 /HPF (0-3)
[2018-09-21 14:52] LABS: BACTERIA,URINE FEW /HPF (NONE SEEN); MUCUS,URINE FEW /LPF (0-FEW); SQUAMOUS EPITHELIAL CELL,UR MODERATE /HPF (NONE SEEN)
[2018-09-21] MEDS ORDERED: IPRATROPIUM BROMIDE 0.5 MG/2.5 ML NEBU ONE (14:53)
[2018-09-21] MEDS ORDERED: ALBUTEROL SULFATE 2.5 MG/3 ML NEBU ONE (14:53)
[2018-09-21 15:17] LABS: BASOPHILS # (AUTO) 0.1 K/uL (0.0-8.0); BASOPHILS % (AUTO) 1.1 % (0.0-2.0); EOSINOPHILS # (AUTO) 0.6 K/uL (0.0-0.7); EOSINOPHILS % (AUTO) 10.2 % (0.0-7.0); HEMATOCRIT 34.3 % (31.2-41.9); HEMOGLOBIN 11.6 g/dL (10.9-14.3); LYMPHOCYTES # (AUTO) 1.3 K/uL (20.0-40.0); LYMPHOCYTES % (AUTO) 22.8 % (20.5-51.5); MEAN CORPUSCULAR HGB CONC 34 g/dL (32.3-35.6); MEAN CORPUSCULAR VOLUME 88.9 fL (75.5-95.3); MONOCYTES # (AUTO) 0.5 K/uL (2.0-10.0); NEUTROPHILS # (AUTO) 3.4 K/uL (1.8-8.9); NEUTROPHILS % (AUTO) 56.9 % (38.5-71.5); PLATELET COUNT (AUTO) 213 K/uL (179-408); RED BLOOD CELL COUNT(AUTO) 3.86 MIL/uL (3.63-4.92); WHITE BLOOD COUNT (AUTO) 5.9 K/uL (3.8-11.8)
[2018-09-21 15:25] LABS: POTASSIUM 4.2 mmol/L (3.5-5.1)
[2018-09-21] MEDS ORDERED: methylPREDNISolone SOD SUCC 125 MG/2 ML VIAL ONE (15:25)
[2018-09-21] MEDS ORDERED: CARB200T PO (15:28)
[2018-09-21] MEDS ORDERED: ZIPR40CA2 PO (15:28)
[2018-09-21] MEDS ORDERED: PARO40TA4 PO (15:28)
[2018-09-21 15:38] LABS: BILIRUBIN,DIRECT 0.1 mg/dL (0.0-0.2); BILIRUBIN,TOTAL 0.2 mg/dL (0.2-1.0); TOTAL PROTEIN, SERUM 6.9 g/dL (6.4-8.2)
[2018-09-21] MEDS ORDERED: HYDROMORPHONE 2 MG/1 ML DISP.SYRIN ONE ×2 (15:40→17:27)
[2018-09-21] MEDS ORDERED: ONDANSETRON 4 MG/2 ML VIAL ONE (15:40)
--- NOTE | 2018-09-21 15:43 | NUR ---
IV INSERTED ON LT AC G20, BLOOD SAMPLES TAKEN, 12 LEAD EKG DONE, NS 500ML TRANSFUSING
[2018-09-21] MEDS ORDERED: HYDROMORPHONE 1 MG/1 ML DISP.SYRIN IV ONE ×2 (15:45→17:30)
[2018-09-21] MEDS ORDERED: ONDANSETRON IV *ER 4 MG/2 ML VIAL IV ONE (15:45)
--- NOTE | 2018-09-21 17:30 | NUR ---
Patient discharged to home in stable conditon. Written and verbal after care instructions given. Patient verbalizes understanding of instructions.PRESCRIPTION GIVEN , PATIENT PRIOR LEAVING RECEIVED A 2ND DOSE OF PAIN KILLER.
== END 2018-09-21 17:35 | disposition home or self-care (01) ==
LOC: ER 13:26
DX: J44.1 Chronic obstructive pulmonary disease with (acute) exacerbation (principal); R30.0 Dysuria; R10.9 Unspecified abdominal pain; I10 Essential (primary) hypertension; F17.200 Nicotine dependence, unspecified, uncomplicated; F15.10 Other stimulant abuse, uncomplicated; F14.10 Cocaine abuse, uncomplicated; Z90.49 Acquired absence of other specified parts of digestive tract; Z91.018 Allergy to other foods; Z79.899 Other long term (current) drug therapy
CPT/HCPCS: 36415; 71045; 74176; 80048; 80076; 81001; 83880; 84484; 85025; 87400; 93005 ×2; 94640; 96374; 96375; 96376; 99284; J1170 ×2; J2405; J2930; 70030-TC; A4663; J3590; J7040

== ENCOUNTER 2018-09-25 00:44 | Emergency (ER) | payer MEDICARE, MEDICAID ==
[~2018-09-25] VITALS: Ht 167.6 cm; Wt 99.8 kg
[~2018-09-25 00:44] MED LIST changes: -ACET1TAB14 PO; -BENZ200C53 PO; +CEPH-570 PO; -CEPH500C2 PO; -CLON1TAB PO; -ESCITALOPRAM TAB 10MG PO; -METH4TAB3 PO; -PARO20TA7 PO; +PARO40TA4 PO; -ZIPR20CA2 PO; +ZIPR40CA2 PO
[2018-09-25] MEDS ORDERED: MORP15TA7 PO (01:05)
--- NOTE | 2018-09-25 01:32 | NUR ---
Patient discharged to home in stable conditon. Written and verbal after care instructions given. Patient verbalizes understanding of instructions. Walked out of ER with no distress noted
[2018-09-25 01:34] VITALS: BP 110/75
== END 2018-09-25 01:35 | disposition home or self-care (01) ==
LOC: ER 00:44
DX: M62.838 Other muscle spasm (principal); I10 Essential (primary) hypertension; J44.9 Chronic obstructive pulmonary disease, unspecified; F17.200 Nicotine dependence, unspecified, uncomplicated; F15.10 Other stimulant abuse, uncomplicated; F14.10 Cocaine abuse, uncomplicated; Z90.49 Acquired absence of other specified parts of digestive tract; Z91.018 Allergy to other foods; Z79.899 Other long term (current) drug therapy
CPT/HCPCS: A4663

== ENCOUNTER 2018-10-02 14:03 | Emergency (ER) | payer MEDICARE, MEDICAID ==
[~2018-10-02] VITALS: Ht 167.6 cm; Wt 99.8 kg
[~2018-10-02 14:03] MED LIST changes: -FLUO-120 PO; -FLUT1DIS28 INH; -HYDR-3326 PO; +MORP15TA7 PO
[2018-10-02] MEDS ORDERED: HYDROMORPHONE 1 MG/1 ML DISP.SYRIN IM ONE (14:30)
[2018-10-02] MEDS ORDERED: ONDANSETRON 4 MG/2 ML VIAL IM ONE (14:30)
[2018-10-02] MEDS ORDERED: ONDANSETRON 4 MG/2 ML VIAL ONE (14:34)
[2018-10-02] MEDS ORDERED: HYDROMORPHONE 2 MG/1 ML DISP.SYRIN ONE (14:34)
--- NOTE | 2018-10-02 14:38 | NUR ---
Patient discharged to home in stable conditon. Written and verbal after care instructions given. Patient verbalizes understanding of instructions.
== END 2018-10-02 14:39 | disposition home or self-care (01) ==
LOC: ER 14:03
DX: M54.5 Low back pain (principal); I10 Essential (primary) hypertension; J44.9 Chronic obstructive pulmonary disease, unspecified; F17.200 Nicotine dependence, unspecified, uncomplicated; Z91.018 Allergy to other foods; Z90.49 Acquired absence of other specified parts of digestive tract; Z79.51 Long term (current) use of inhaled steroids; Z79.899 Other long term (current) drug therapy
CPT/HCPCS: 96372 ×2; 99283; J1170; J2405; A4663

== ENCOUNTER 2018-10-04 13:21 | Emergency (ER) | payer MEDICARE, MEDICAID ==
[~2018-10-04] VITALS: Ht 167.6 cm; Wt 99.8 kg
[2018-10-04] MEDS ORDERED: HYDROMORPHONE 2 MG/1 ML DISP.SYRIN ONE ×2 (13:41→15:43)
[2018-10-04] MEDS ORDERED: ONDANSETRON 4 MG/2 ML VIAL ONE ×2 (13:41→15:44)
[2018-10-04] MEDS ORDERED: ONDANSETRON 4 MG/2 ML VIAL IM ONE ×2 (13:45→15:45)
[2018-10-04] MEDS ORDERED: HYDROMORPHONE 1 MG/1 ML DISP.SYRIN IM ONE ×2 (13:45→15:45)
[2018-10-04] MEDS ORDERED: MAGNESIUM HYDROXIDE 30 ML LIQUID UDC ONE (13:54)
[2018-10-04] MEDS ORDERED: MAGNESIUM CITRATE 296 ML BOTTLE ONE (13:54)
[2018-10-04] MEDS ORDERED: MAGNESIUM CITRATE 296 ML BOTTLE PO ONE (14:00)
[2018-10-04] MEDS ORDERED: MAGNESIUM HYDROXIDE 30 ML LIQUID UDC PO ONE (14:00)
--- NOTE | 2018-10-04 14:28 | NUR ---
Wet wash cloth provided per patient's request. Patient tolerated po magnesium hydroxide (60ml). Patient is slowly taking the po magnesium citrate, about 50% was already consumed, pending results and disposition.
--- NOTE | 2018-10-04 14:59 | NUR ---
Patient is seen taking drinks and snacks from the hospital-arranged coffee cart with very good appetite. NAD.
--- NOTE | 2018-10-04 15:07 | NUR ---
Patient went out of ER department to smoke cigarettes even after telling the patient re: NO SMOKING policy of our hospital. notified.
--- NOTE | 2018-10-04 15:18 | NUR ---
Patient says "Can I have more pain shot?" while resting comfortably on gurney. MD notified.
--- NOTE | 2018-10-04 15:46 | NUR ---
Patient wants to go home as soon as the second Dilaudid was given. notified.
--- NOTE | 2018-10-04 15:49 | NUR ---
Patient took drinks and ate snacks from the coffee cart again, NAD. Patient discharged to home in stable conditon & steady gait. Written and verbal after care instructions given to patient. Patient verbalizes understanding of instructions. Patient says her ride will come & pick her up.
== END 2018-10-04 15:52 | disposition home or self-care (01) ==
LOC: ER 13:23
DX: K59.00 Constipation, unspecified (principal); I10 Essential (primary) hypertension; J44.9 Chronic obstructive pulmonary disease, unspecified; F17.200 Nicotine dependence, unspecified, uncomplicated; Z79.51 Long term (current) use of inhaled steroids; Z79.899 Other long term (current) drug therapy; Z91.018 Allergy to other foods; Z90.49 Acquired absence of other specified parts of digestive tract
CPT/HCPCS: 74176; 96372 ×4; 99284; J1170 ×2; J2405 ×2; A4663

== ENCOUNTER 2018-10-17 13:13 | Inpatient (IN) | payer MEDICARE, MEDICAID ==
[~2018-10-17] VITALS: Ht 167.6 cm; Wt 99.8 kg
[2018-10-17] MEDS ORDERED: OXYCODONE/APAP 5-325 MG TABLET PO ONE (13:30)
[2018-10-17] MEDS ORDERED: ALBUTEROL SULFATE 2.5 MG/3 ML NEBU NEB ONE ×2 (13:30→15:15)
[2018-10-17] MEDS ORDERED: IPRATROPIUM BROMIDE 0.5 MG/2.5 ML NEBU NEB ONE (13:30)
[2018-10-17] MEDS ORDERED: OXYCODONE/APAP 5-325 MG TABLET ONE (13:43)
[2018-10-17] MEDS ORDERED: ALBUTEROL SULFATE 2.5 MG/3 ML NEBU ONE ×2 (13:51→15:13)
[2018-10-17] MEDS ORDERED: IPRATROPIUM BROMIDE 0.5 MG/2.5 ML NEBU ONE (13:51)
[2018-10-17 13:52] LABS: CREATININE 0.8 mg/dL (0.6-1.3); POTASSIUM 4.2 mmol/L (3.5-5.1)
[2018-10-17 13:58] LABS: BASOPHILS % (AUTO) 0.3 % (0.0-2.0); EOSINOPHILS # (AUTO) 0.1 K/uL (0.0-0.7); LYMPHOCYTES # (AUTO) 0.3 K/uL (20.0-40.0); LYMPHOCYTES % (AUTO) 5.5 % (20.5-51.5); MEAN CORPUSCULAR HEMOGLOBIN 29.1 uug (24.7-32.8); MEAN CORPUSCULAR HGB CONC 33 g/dL (32.3-35.6); MONOCYTES # (AUTO) 0.1 K/uL (2.0-10.0); MONOCYTES % (AUTO) 1.6 % (0.0-11.0); NEUTROPHILS # (AUTO) 5.6 K/uL (1.8-8.9); NEUTROPHILS % (AUTO) 91.6 % (38.5-71.5); PLATELET COUNT (AUTO) 220 K/uL (179-408); RED BLOOD CELL COUNT(AUTO) 4.48 MIL/uL (3.63-4.92); WHITE BLOOD COUNT (AUTO) 6.1 K/uL (3.8-11.8)
[2018-10-17 14:05] LABS: BILIRUBIN,DIRECT 0.1 mg/dL (0.0-0.2); BILIRUBIN,TOTAL 0.4 mg/dL (0.2-1.0); TOTAL PROTEIN, SERUM 7.3 g/dL (6.4-8.2)
--- NOTE | 2018-10-17 14:10 | NUR ---
pt requested coffee. advised patient she may not have any caffiene at this time.
[2018-10-17] MEDS ORDERED: ASPIRIN 325 MG TABLET PO ONE (14:15)
[2018-10-17] MEDS ORDERED: ASPIRIN 81 MG TAB.CHEW ONE (14:17)
[2018-10-17] MEDS ORDERED: FLUT1BLS IH (14:34)
--- NOTE | 2018-10-17 14:45 | NUR ---
ER SPEAKING W/ GERALD BARGER, COMPLIANCE MONITOR, RE PT'S ADMISSION.
[2018-10-17] MEDS ORDERED: HYDROCODONE/APAP 5-325MG TABLET PO PRN (15:15)
[2018-10-17] MEDS ORDERED: MAGNESIUM HYDROXIDE 30 ML LIQUID UDC PO PRN (15:15)
[2018-10-17] MEDS ORDERED: ONDANSETRON 4 MG/2 ML VIAL IV PRN (15:15)
[2018-10-17] MEDS ORDERED: IPRATROPIUM BROMIDE 0.5 MG/2.5 ML NEBU NEB PRN (15:15)
[2018-10-17] MEDS ORDERED: ACETAMINOPHEN 325 MG TABLET PO PRN (15:15)
[2018-10-17] MEDS ORDERED: TEMAZEPAM 15 MG CAPSULE PO PRN (15:15)
[2018-10-17] MEDS ORDERED: ALBUTEROL SULFATE 2.5 MG/3 ML NEBU NEB PRN (15:15)
--- NOTE | 2018-10-17 15:17 | NUR ---
called pt's Nick as per pt request.
--- NOTE | 2018-10-17 15:19 | NUR ---
Pt SPO2 at 87%, Respratory called. Placed on breathing treatment as per MD order. No signs of distress.
[2018-10-17] MEDS ORDERED: CLONIDINE HCL 0.1 MG TABLET PO PRN ×2 (15:30→15:58)
--- NOTE | 2018-10-17 15:31 | NUR ---
assisted patient to restroom. denies SOB. no signs of distress
[2018-10-17] MEDS: GABAPENTIN 300 MG CAPSULE PO SCH (16:18)
[2018-10-17] MEDS: PAROXETINE HCL 20 MG TABLET PO SCH (16:19)
[2018-10-17] MEDS: LOSARTAN POTASSIUM 50 MG TABLET PO SCH (16:19)
[2018-10-17] MEDS: CARBAMAZEPINE 200 MG TABLET PO SCH (16:19)
[2018-10-17 16:20] VITALS: BP 141/76
--- NOTE | 2018-10-17 16:39 | NUR ---
48 year old female admitted to room 319 for nstemi .pt is axox4.call light with in reach. called for admission orders
[2018-10-17] MEDS: MORPHINE SULFATE 2 MG/1 ML DISP.SYRIN IV PRN ×2 (16:47→20:52)
[2018-10-17] MEDS: FLUTICASONE/VILANTEROL 1 EACH BLST.W.DEV IH SCH (17:44)
[2018-10-17] MEDS ORDERED: ASPIRIN 81 MG TAB.CHEW PO SCH (18:30)
[2018-10-17] MEDS: ALBUTEROL SULFATE 2.5 MG/3 ML NEBU NEB SCH (19:20)
[2018-10-17] MEDS: IPRATROPIUM BROMIDE 0.5 MG/2.5 ML NEBU NEB SCH (19:20)
--- NOTE | 2018-10-17 20:00 | NUR ---
Received patient laying in bed. No acute distress noted. Patient is A/O z 4. Hyper verbal. Patient is on RA. TELE SR. IV on the Right AC, patent and intact. Safety initiated. Call light within reach. Will continue to monitor.
[2018-10-17 20:25] VITALS: BP 114/64
[2018-10-17] MEDS ORDERED: ZIPRASIDONE 20 MG CAPSULE PO SCH ×2 (21:00)
[2018-10-17] MEDS: methylPREDNISolone SOD SUCC 40 MG/ML VIAL IV SCH (21:11)
[2018-10-17] MEDS ORDERED: CLONAZEPAM 1 MG TABLET PO PRN (21:30)
[2018-10-18 00:54] VITALS: BP_SYST 74
[2018-10-18 00:55] VITALS: BP 122/74
[2018-10-18 04:00] VITALS: BP 118/60
--- NOTE | 2018-10-18 05:58 | NUR ---
Patient slept intermittently t/o the night. C/O headache. Denies chest pain and sob t/o shift. Medication given, stated releif. Remains A/O x 3. On O2 2L NC. TELE SBrady at 49. Vital signs stable. Good urine output. IVF remains saline lock. Safety and comfort measures maintained t/o shift. All meds given as ordered. All needs met.
[2018-10-18] MEDS: methylPREDNISolone SOD SUCC 40 MG/ML VIAL IV SCH (06:17)
[2018-10-18 06:30] LABS: BASOPHILS % (AUTO) 0.2 % (0.0-2.0); EOSINOPHILS % (AUTO) 0.2 % (0.0-7.0); HEMATOCRIT 36.2 % (31.2-41.9); HEMOGLOBIN 12.1 g/dL (10.9-14.3); LYMPHOCYTES # (AUTO) 0.7 K/uL (20.0-40.0); LYMPHOCYTES % (AUTO) 12.4 % (20.5-51.5); MEAN CORPUSCULAR HEMOGLOBIN 29.5 uug (24.7-32.8); MEAN CORPUSCULAR HGB CONC 34 g/dL (32.3-35.6); MONOCYTES # (AUTO) 0.2 K/uL (2.0-10.0); MONOCYTES % (AUTO) 4.1 % (0.0-11.0); NEUTROPHILS # (AUTO) 4.7 K/uL (1.8-8.9); NEUTROPHILS % (AUTO) 83.1 % (38.5-71.5); PLATELET COUNT (AUTO) 230 K/uL (179-408); RED BLOOD CELL COUNT(AUTO) 4.11 MIL/uL (3.63-4.92); WHITE BLOOD COUNT (AUTO) 5.6 K/uL (3.8-11.8)
[2018-10-18 06:37] LABS: CREATININE 0.7 mg/dL (0.6-1.3); MAGNESIUM 1.8 mg/dL (1.8-2.4); PHOSPHOROUS 4.3 mg/dL (2.5-4.9); POTASSIUM 4.3 mmol/L (3.5-5.1)
[2018-10-18] MEDS ORDERED: PANTOPRAZOLE SODIUM 40 MG TABLET.DR PO SCH (07:00)
[2018-10-18] MEDS: ALBUTEROL SULFATE 2.5 MG/3 ML NEBU NEB SCH ×3 (07:38→15:43)
[2018-10-18] MEDS: IPRATROPIUM BROMIDE 0.5 MG/2.5 ML NEBU NEB SCH ×3 (07:38→15:43)
[2018-10-18] MEDS ORDERED: CLONAZEPAM 0.5 MG TABLET PO PRN (07:45)
[2018-10-18] MEDS ORDERED: ASPIRIN 81 MG TAB.CHEW PO SCH (09:00)
[2018-10-18] MEDS ORDERED: MORPHINE SULFATE 4 MG/1 ML DISP.SYRIN IV PRN (09:00)
[2018-10-18] MEDS ORDERED: NICOTINE 21 MG/24HR PATCH TD SCH (09:00)
[2018-10-18] MEDS: PAROXETINE HCL 20 MG TABLET PO SCH (09:00)
[2018-10-18] MEDS: LOSARTAN POTASSIUM 50 MG TABLET PO SCH (09:00)
[2018-10-18] MEDS: GABAPENTIN 300 MG CAPSULE PO SCH ×2 (09:00→13:00)
[2018-10-18] MEDS: CARBAMAZEPINE 200 MG TABLET PO SCH (09:00)
[2018-10-18] MEDS: FLUTICASONE/VILANTEROL 1 EACH BLST.W.DEV IH SCH (10:38)
[2018-10-18 11:16] VITALS: BP 100/47
[2018-10-18] MEDS ORDERED: HYDROMORPHONE 1 MG/1 ML DISP.SYRIN IV PRN (14:45)
[2018-10-18 15:38] VITALS: BP 115/52
--- NOTE | 2018-10-18 16:30 | NUR ---
IV D/C'D HOME INSTRUCTIONS REVIEWED WITH PT. DISCHARGED HOME
[2018-10-18] MEDS ORDERED: methylPREDNISolone SOD SUCC 40 MG/ML VIAL IV SCH (18:00)
== END 2018-10-18 16:30 | disposition home or self-care (01) | DRG 190 ==
LOC: ER 13:13 → TELE3 15:45
PROVIDERS: ADMIT Nurse Practitioner Acute Care; ATTEND Nurse Practitioner Acute Care
DX: J44.1 Chronic obstructive pulmonary disease with (acute) exacerbation (principal); I21.A1 Myocardial infarction type 2; E87.1 Hypo-osmolality and hyponatremia; F17.210 Nicotine dependence, cigarettes, uncomplicated; Z98.84 Bariatric surgery status; K21.9 Gastro-esophageal reflux disease without esophagitis; G89.4 Chronic pain syndrome; E66.01 Morbid (severe) obesity due to excess calories; Z68.35 Body mass index [BMI] 35.0-35.9, adult; F31.9 Bipolar disorder, unspecified; F15.11 Other stimulant abuse, in remission; F14.11 Cocaine abuse, in remission; G47.33 Obstructive sleep apnea (adult) (pediatric); R73.9 Hyperglycemia, unspecified; I10 Essential (primary) hypertension; F41.9 Anxiety disorder, unspecified; K25.9 Gastric ulcer, unspecified as acute or chronic, without hemorrhage or perforation; Z79.899 Other long term (current) drug therapy; Z80.9 Family history of malignant neoplasm, unspecified; Z82.49 Family history of ischemic heart disease and other diseases of the circulatory system; Z82.3 Family history of stroke; Z83.3 Family history of diabetes mellitus; Z90.49 Acquired absence of other specified parts of digestive tract; Z91.14 Patient's other noncompliance with medication regimen; Z91.018 Allergy to other foods
CPT/HCPCS: 36415; 70030-TC; 71045; 83735; 84100; 85025; 93005; 94640; 94664; A4663; G0378; J1170; J2270; J2920; J3590

== ENCOUNTER 2018-11-09 08:49 | Emergency (ER) | payer MEDICARE, MEDICAID ==
[~2018-11-09] VITALS: Ht 167.6 cm; Wt 99.8 kg
[~2018-11-09 08:49] MED LIST changes: -ALBU18HF2 INH; -CEPH-570 PO; -FLUT16SP BNOSTRILS; +FLUT1BLS IH
--- NOTE | 2018-11-09 09:28 | NUR ---
Patient discharged to home in stable conditon. Written and verbal after care instructions given. Patient verbalizes understanding of instructions.PT WALKS I NSTEADY GAIT, NO SIGN OF DISTRESS.
== END 2018-11-09 09:30 | disposition home or self-care (01) ==
LOC: ER 08:49
DX: M79.604 Pain in right leg (principal); M79.605 Pain in left leg; I10 Essential (primary) hypertension; J44.1 Chronic obstructive pulmonary disease with (acute) exacerbation; F17.200 Nicotine dependence, unspecified, uncomplicated; F15.10 Other stimulant abuse, uncomplicated; F14.10 Cocaine abuse, uncomplicated; Z76.0 Encounter for issue of repeat prescription; Z90.49 Acquired absence of other specified parts of digestive tract; Z91.018 Allergy to other foods; Z79.899 Other long term (current) drug therapy; Z79.51 Long term (current) use of inhaled steroids
CPT/HCPCS: A4663

== ENCOUNTER 2018-12-19 19:43 | Emergency (ER) | payer MEDICARE, MEDICAID ==
[~2018-12-19] VITALS: Ht 167.6 cm; Wt 99.8 kg
[2018-12-19] MEDS ORDERED: BUPR1FIL3 SL (19:59)
[2018-12-19] MEDS ORDERED: ALBUTEROL SULFATE 2.5 MG/3 ML NEBU NEB ONE (20:15)
[2018-12-19] MEDS ORDERED: methylPREDNISolone SOD SUCC 125 MG/2 ML VIAL IV ONE (20:15)
[2018-12-19] MEDS ORDERED: IPRATROPIUM BROMIDE 0.5 MG/2.5 ML NEBU NEB ONE (20:15)
[2018-12-19] MEDS ORDERED: IV NORMAL SALINE 500 ML BAG IV ONE (20:15)
[2018-12-19] MEDS ORDERED: ALBUTEROL SULFATE 2.5 MG/3 ML NEBU ONE (20:30)
[2018-12-19] MEDS ORDERED: IPRATROPIUM BROMIDE 0.5 MG/2.5 ML NEBU ONE (20:31)
[2018-12-19] MEDS ORDERED: methylPREDNISolone SOD SUCC 125 MG/2 ML VIAL ONE (21:03)
--- NOTE | 2018-12-19 21:19 | NUR ---
Patient does not wish to proceed with medical care recommended by Dr. Hitchcock. Patient given information related to possible complications, up to and including , which could occur as a result of leaving the hospital at this time. Patient verbalizes understanding of risks involved due to leaving against medical advice. Patient has signed AMA form and d/c papers for prescription, pt. ambulated off unit w/ steady gait, all belongings w/ pt., ID band removed, VSS, NAD
== END 2018-12-19 21:22 | disposition left against medical advice (07) ==
LOC: ER 19:45
DX: J44.1 Chronic obstructive pulmonary disease with (acute) exacerbation (principal); I10 Essential (primary) hypertension; I25.10 Atherosclerotic heart disease of native coronary artery without angina pectoris; F31.9 Bipolar disorder, unspecified; F17.200 Nicotine dependence, unspecified, uncomplicated; Z90.49 Acquired absence of other specified parts of digestive tract; Z91.018 Allergy to other foods; Z79.899 Other long term (current) drug therapy; Z79.51 Long term (current) use of inhaled steroids; Z79.891 Long term (current) use of opiate analgesic
CPT/HCPCS: 71045; 93005; 94644; 96374; 99285; J2930; A4663; J3590; J7040

== ENCOUNTER 2019-01-19 21:17 | Emergency (ER) | payer MEDICARE, MEDICAID ==
[~2019-01-19] VITALS: Ht 167.6 cm; Wt 115.7 kg
[~2019-01-19 21:17] MED LIST changes: +BUPR1FIL3 SL; -MORP15TA7 PO
--- NOTE | 2019-01-19 21:30 | NUR ---
Patient came for med refill for Klonopin. States that she has been out for about a week now and has not been able to get a f/u appt with her primary for refill. A/Ox4. Speech clear, speaks in complete sentence. No neuro deficits. No GI/ distress noted.
[2019-01-19] MEDS ORDERED: CLONAZEPAM 0.5 MG TABLET PO ONE (21:45)
[2019-01-19] MEDS ORDERED: CLONAZEPAM 1 MG TABLET ONE (21:46)
--- NOTE | 2019-01-19 21:51 | NUR ---
Patient discharged to home in stable conditon. Written and verbal after care instructions given. Patient verbalizes understanding of instructions. Patient ambulated with stable gait.
[2019-01-19 21:54] VITALS: BP 123/81
== END 2019-01-19 21:55 | disposition home or self-care (01) ==
LOC: ER 21:29
DX: R56.9 Unspecified convulsions (principal); I10 Essential (primary) hypertension; J44.9 Chronic obstructive pulmonary disease, unspecified; F31.9 Bipolar disorder, unspecified; F17.200 Nicotine dependence, unspecified, uncomplicated; F14.10 Cocaine abuse, uncomplicated; F15.10 Other stimulant abuse, uncomplicated; Z90.49 Acquired absence of other specified parts of digestive tract; Z91.018 Allergy to other foods; Z79.899 Other long term (current) drug therapy
CPT/HCPCS: A4663

== ENCOUNTER 2019-02-07 14:20 | Emergency (ER) | payer MEDICARE, MEDICAID ==
[~2019-02-07] VITALS: Ht 167.6 cm; Wt 115.7 kg
--- NOTE | 2019-02-07 15:29 | NUR ---
Patient discharged to home in stable conditon. Written and verbal after care instructions given. Patient verbalizes understanding of instructions.
[2019-02-07] MEDS ORDERED: CLONAZEPAM 0.5 MG TABLET PO ONE (15:30)
[2019-02-07] MEDS ORDERED: CLONAZEPAM 1 MG TABLET ONE (15:34)
== END 2019-02-07 15:33 | disposition home or self-care (01) ==
LOC: ER 14:20
DX: F15.93 Other stimulant use, unspecified with withdrawal (principal); I10 Essential (primary) hypertension; J44.9 Chronic obstructive pulmonary disease, unspecified; K21.9 Gastro-esophageal reflux disease without esophagitis; F31.9 Bipolar disorder, unspecified; F17.210 Nicotine dependence, cigarettes, uncomplicated; F15.10 Other stimulant abuse, uncomplicated; F14.10 Cocaine abuse, uncomplicated; Z79.899 Other long term (current) drug therapy; Z91.018 Allergy to other foods; Z90.49 Acquired absence of other specified parts of digestive tract
CPT/HCPCS: A4663

== ENCOUNTER 2019-02-21 17:44 | Emergency (ER) | payer MEDICARE, MEDICAID ==
[~2019-02-21] VITALS: Ht 167.6 cm; Wt 113.4 kg
--- NOTE | 2019-02-21 18:16 | NUR ---
Patient discharged to home in stable conditon. Written and verbal after care instructions given. Patient verbalizes understanding of instructions.
[2019-02-21] MEDS ORDERED: CLONAZEPAM 1 MG TABLET ONE (18:26)
[2019-02-21] MEDS ORDERED: CLONAZEPAM 0.5 MG TABLET PO ONE (18:30)
== END 2019-02-21 18:25 | disposition home or self-care (01) ==
LOC: ER 17:53
DX: F32.9 Major depressive disorder, single episode, unspecified (principal); I10 Essential (primary) hypertension; J44.9 Chronic obstructive pulmonary disease, unspecified; F17.200 Nicotine dependence, unspecified, uncomplicated; F15.10 Other stimulant abuse, uncomplicated; F14.10 Cocaine abuse, uncomplicated; Z76.0 Encounter for issue of repeat prescription; Z90.49 Acquired absence of other specified parts of digestive tract; Z91.018 Allergy to other foods; Z79.899 Other long term (current) drug therapy; Z79.51 Long term (current) use of inhaled steroids
CPT/HCPCS: A4663

== ENCOUNTER 2019-06-05 18:30 | Emergency (ER) | payer MEDICARE, MEDICAID ==
[~2019-06-05] VITALS: Ht 167.6 cm; Wt 108.9 kg
[2019-06-05] MEDS ORDERED: ALBUTEROL SULFATE 2.5 MG/3 ML NEBU NEB ONE (20:30)
[2019-06-05] MEDS ORDERED: predniSONE 20 MG TABLET PO ONE (20:30)
[2019-06-05] MEDS ORDERED: predniSONE 10 MG TABLET ONE (20:30)
[2019-06-05] MEDS ORDERED: predniSONE 50 MG TABLET ONE (20:30)
[2019-06-05] MEDS ORDERED: ALBUTEROL SULFATE 2.5 MG/3 ML NEBU ONE (20:55)
[2019-06-05] MEDS ORDERED: HYDROCODONE/APAP 5-325MG TABLET PO ONE (21:00)
[2019-06-05] MEDS ORDERED: HYDROCODONE/APAP 5-325MG TABLET ONE (21:14)
--- NOTE | 2019-06-05 21:20 | NUR ---
Patient in room drinking coffee with no distress noted.
--- NOTE | 2019-06-05 21:49 | NUR ---
Patient discharged to home in stable conditon. Written and verbal after care instructions given. Patient verbalizes understanding of instructions. Walked out of ER with no distress noted.
[2019-06-05 21:50] VITALS: BP 128/75
== END 2019-06-05 21:56 | disposition home or self-care (01) ==
LOC: ER 18:30
DX: J45.901 Unspecified asthma with (acute) exacerbation (principal); M25.561 Pain in right knee; M25.562 Pain in left knee; I10 Essential (primary) hypertension; J44.9 Chronic obstructive pulmonary disease, unspecified; F31.9 Bipolar disorder, unspecified; F17.210 Nicotine dependence, cigarettes, uncomplicated; Z90.49 Acquired absence of other specified parts of digestive tract; Z76.0 Encounter for issue of repeat prescription; Z79.899 Other long term (current) drug therapy
CPT/HCPCS: 71045; 94640; 99283; J7512 ×2; A4663

== ENCOUNTER 2019-06-24 20:05 | Emergency (ER) | payer MEDICARE, OTHER ==
[~2019-06-24] VITALS: Ht 167.6 cm; Wt 108.9 kg
[~2019-06-24 20:05] MED LIST changes: -BUPR1FIL3 SL
--- NOTE | 2019-06-24 21:20 | NUR ---
Dr. Andrews at bedside for MSE
[2019-06-24] MEDS ORDERED: CLONAZEPAM 0.5 MG TABLET PO ONE (21:45)
[2019-06-24] MEDS ORDERED: CLONAZEPAM 1 MG TABLET ONE (21:45)
--- NOTE | 2019-06-24 21:47 | NUR ---
After recieving Klonopin PO patient states "I am fine, I am leaving." Patient refused to wait for ACI or re eval from ERMD. Patient walked out of ER with no distress noted.
== END 2019-06-24 21:49 | disposition left against medical advice (07) ==
LOC: ER 20:05
DX: F41.9 Anxiety disorder, unspecified (principal); I10 Essential (primary) hypertension; J44.9 Chronic obstructive pulmonary disease, unspecified; F31.9 Bipolar disorder, unspecified; F17.200 Nicotine dependence, unspecified, uncomplicated; F15.10 Other stimulant abuse, uncomplicated; F14.10 Cocaine abuse, uncomplicated; Z76.0 Encounter for issue of repeat prescription; Z90.49 Acquired absence of other specified parts of digestive tract; Z91.018 Allergy to other foods; Z79.899 Other long term (current) drug therapy
CPT/HCPCS: A4663

== ENCOUNTER 2019-07-24 21:02 | Emergency (ER) | payer MEDICARE, OTHER ==
[~2019-07-24] VITALS: Ht 170.2 cm; Wt 113.4 kg
[2019-07-24] MEDS ORDERED: ALBUTEROL SULFATE 2.5 MG/3 ML NEBU NEB ONE ×2 (21:30→22:45)
[2019-07-24] MEDS ORDERED: OXYCODONE/APAP 5-325 MG TABLET PO ONE ×2 (21:30→23:30)
[2019-07-24] MEDS ORDERED: predniSONE 10 MG TABLET PO ONE (21:30)
[2019-07-24] MEDS ORDERED: IPRATROPIUM BROMIDE 0.5 MG/2.5 ML NEBU NEB ONE (21:30)
--- NOTE | 2019-07-24 21:30 | NUR ---
DR MONTAVLO AT BEDSIDE FOR MSE.
[2019-07-24] MEDS ORDERED: predniSONE 10 MG TABLET ONE (21:35)
[2019-07-24] MEDS ORDERED: OXYCODONE/APAP 5-325 MG TABLET ONE ×2 (21:35→23:26)
[2019-07-24] MEDS ORDERED: IPRATROPIUM BROMIDE 0.5 MG/2.5 ML NEBU ONE (21:38)
[2019-07-24] MEDS ORDERED: ALBUTEROL SULFATE 2.5 MG/3 ML NEBU ONE ×2 (21:38→22:45)
[2019-07-24 21:56] LABS: BASOPHILS # (AUTO) 0.1 K/uL (0.0-8.0); BASOPHILS % (AUTO) 0.9 % (0.0-2.0); EOSINOPHILS # (AUTO) 0.4 K/uL (0.0-0.7); EOSINOPHILS % (AUTO) 7.2 % (0.0-7.0); HEMATOCRIT 38.3 % (31.2-41.9); HEMOGLOBIN 12.8 g/dL (10.9-14.3); LYMPHOCYTES # (AUTO) 1.5 K/uL (20.0-40.0); LYMPHOCYTES % (AUTO) 24.6 % (20.5-51.5); MEAN CORPUSCULAR HEMOGLOBIN 30.8 uug (24.7-32.8); MEAN CORPUSCULAR HGB CONC 34 g/dL (32.3-35.6); MEAN CORPUSCULAR VOLUME 92.1 fL (75.5-95.3); MONOCYTES # (AUTO) 0.5 K/uL (2.0-10.0); MONOCYTES % (AUTO) 8.6 % (0.0-11.0); NEUTROPHILS # (AUTO) 3.6 K/uL (1.8-8.9); NEUTROPHILS % (AUTO) 58.7 % (38.5-71.5); PLATELET COUNT (AUTO) 213 K/uL (179-408); RED BLOOD CELL COUNT(AUTO) 4.16 MIL/uL (3.63-4.92); WHITE BLOOD COUNT (AUTO) 6.1 K/uL (3.8-11.8)
[2019-07-24 22:06] LABS: CREATININE 1.3 mg/dL (0.6-1.3); POTASSIUM 3.8 mmol/L (3.5-5.1)
[2019-07-24 22:19] LABS: BILIRUBIN,DIRECT 0.1 mg/dL (0.0-0.2); BILIRUBIN,TOTAL 0.2 mg/dL (0.2-1.0); TOTAL PROTEIN, SERUM 6.8 g/dL (6.4-8.2)
[2019-07-24] MEDS ORDERED: IV NORMAL SALINE 1000 ML BAG IV ONE (22:30)
--- NOTE | 2019-07-24 23:43 | NUR ---
Patient discharged to home in stable conditon. Written and verbal after care instructions given. Patient verbalizes understanding of instructions. All belongings with patient. No acute distress noted. Pt ambulated out of ER with stable gait.
[2019-07-24 23:44] VITALS: BP 103/73
== END 2019-07-24 23:30 | disposition home or self-care (01) ==
LOC: ER 21:04
DX: J98.01 Acute bronchospasm (principal); J40 Bronchitis, not specified as acute or chronic; E66.9 Obesity, unspecified; F15.93 Other stimulant use, unspecified with withdrawal; I10 Essential (primary) hypertension; J44.9 Chronic obstructive pulmonary disease, unspecified; F11.10 Opioid abuse, uncomplicated; F17.290 Nicotine dependence, other tobacco product, uncomplicated; Z76.0 Encounter for issue of repeat prescription; Z71.6 Tobacco abuse counseling; Z68.39 Body mass index [BMI] 39.0-39.9, adult; Z90.49 Acquired absence of other specified parts of digestive tract; Z91.018 Allergy to other foods; Z79.899 Other long term (current) drug therapy
CPT/HCPCS: 36415; 71045; 80048; 80076; 83880; 84484; 85025; 85379; 93005; 94640; 94644; 99285; 99406; J7512; 70030-TC; A4663; J3590; J7030

== ENCOUNTER 2021-12-08 14:42 | Emergency (ER) | payer MEDICARE, OTHER ==
[~2021-12-08] VITALS: Ht 167.6 cm; Wt 111.1 kg
[~2021-12-08 14:42] MED LIST changes: +CLON1TAB PO; -FLUT1BLS IH; -ZIPR40CA2 PO
[2021-12-08] MEDS ORDERED: OXYCODONE/APAP 5-325 MG TABLET PO ONE (15:15)
[2021-12-08] MEDS ORDERED: CYCLOBENZAPRINE HCL 10 MG TABLET PO ONE (15:15)
[2021-12-08] MEDS ORDERED: OXYCODONE/APAP 5-325 MG TABLET ONE (15:24)
[2021-12-08] MEDS ORDERED: CYCLOBENZAPRINE HCL 10 MG TABLET ONE (15:25)
[2021-12-08 20:27] VITALS: BP 144/79
== END 2021-12-08 20:27 | disposition home or self-care (01) ==
LOC: ER 14:42
DX: G89.29 Other chronic pain (principal); M54.50 Low back pain, unspecified; Z80.9 Family history of malignant neoplasm, unspecified; Z82.49 Family history of ischemic heart disease and other diseases of the circulatory system; Z90.49 Acquired absence of other specified parts of digestive tract; Z98.84 Bariatric surgery status; E66.01 Morbid (severe) obesity due to excess calories; Z68.39 Body mass index [BMI] 39.0-39.9, adult; F31.9 Bipolar disorder, unspecified; F17.200 Nicotine dependence, unspecified, uncomplicated; J44.9 Chronic obstructive pulmonary disease, unspecified; I10 Essential (primary) hypertension
CPT/HCPCS: A4663